=== PATIENT | female | born 1970 | race Two or more races ===

== ENCOUNTER → 2020-07-06 12:35 | Outpatient (BNVA) | payer OTHER, SELFPAY | PROVIDERS: PCP Internal Medicine; Referring Provider Internal Medicine; Visit Provider Nurse Practitioner Gerontology | DX: Z76.89 Persons encountering health services in other specified circumstances (principal) ==

== ENCOUNTER 2020-07-07 08:59 | Outpatient (REF) | payer OTHER, SELFPAY ==
[2020-07-07 10:35] LABS: Estimated Average Glucose 163 mg/dL; Hemoglobin A1c % 7.3 %
[2020-07-07 11:03] LABS: Free T4 (Free Thyroxine) 1.06 ng/dL (0.71-1.85)
== END 2020-07-07 09:00 | disposition home or self-care (01) ==
LOC: HO.10HDL 08:59
PROVIDERS: Visit Provider Nurse Practitioner Gerontology
DX: E11.9 Type 2 diabetes mellitus without complications (principal); E89.0 Postprocedural hypothyroidism
CPT/HCPCS: 83036; 84439; 84443

== ENCOUNTER → 2020-07-25 11:45 | Outpatient (BNVA) | payer OTHER, SELFPAY | PROVIDERS: PCP Internal Medicine; Visit Provider Physician Assistant | DX: Z76.89 Persons encountering health services in other specified circumstances (principal) ==

== ENCOUNTER 2020-08-08 13:30 | Outpatient (REF) | payer OTHER, SELFPAY ==
[2020-08-08 13:51] LABS: COVID-19 Test Negative (Negative)
== END 2020-08-08 13:31 | disposition home or self-care (01) ==
LOC: HO.EMPCOV 13:30
PROVIDERS: Visit Provider Internal Medicine
DX: Z20.828 Contact with and (suspected) exposure to other viral communicable diseases (principal)
CPT/HCPCS: 36415; 87635; C9803

== ENCOUNTER 2020-08-14 08:31 | Outpatient (REF) | payer OTHER, SELFPAY ==
[2020-08-14 10:50] LABS: Free T4 (Free Thyroxine) 1.27 ng/dL (0.71-1.85); Thyroid Stimulating Hormone 1.33 uIU/mL (0.32-4.0)
== END 2020-08-14 08:32 | disposition home or self-care (01) ==
LOC: HO.10HDL 08:31
PROVIDERS: Visit Provider Nurse Practitioner Gerontology
DX: E89.0 Postprocedural hypothyroidism (principal)
CPT/HCPCS: 36415; 84439; 84443

== ENCOUNTER → 2020-08-22 10:17 | Outpatient (BNVA) | payer OTHER, SELFPAY | PROVIDERS: PCP Internal Medicine; Visit Provider Nurse Practitioner Gerontology ==

== ENCOUNTER → 2020-10-20 12:37 | Outpatient (BNVA) | payer OTHER, SELFPAY | PROVIDERS: Visit Provider Nurse Practitioner Gerontology ==

== ENCOUNTER 2020-10-23 11:25 | Outpatient (REF) | payer OTHER, SELFPAY ==
--- NOTE | ~2020-10-23 | MM_ITS ---
EXAMINATION: MM DIAGNOSTIC DIGITAL BREAST TOMOSYNTHESIS, LEFT US DIAGNOSTIC ULTRASOUND BREAST, LEFT CLINICAL INFORMATION: Probable benign nodular asymmetry central outer left breast. The lifetime risk of breast cancer based on the Tyrer-Cuzick Model is 6%. COMPARISON: Mammography: 04/28/2020, 04/27/2020 (BI-RADS 0), 04/20/2019, ultrasound left breast 04/28/2020. TECHNIQUE: Digital breast tomosynthesis is performed in both the craniocaudal and mediolateral oblique views along with computer-aided detection (CAD). Synthesized 2D images are generated from the tomosynthesis. Ultrasound left breast is targeted to the outer quadrant. Grayscale imaging and color Doppler are performed without and with harmonics. FINDINGS: There are scattered areas of fibroglandular density (ACR BI-RADS breast composition Category b). Parenchymal pattern is similar to prior studies. The nodular asymmetry posterior central outer breast on CC view is stable from prior exams. There is no developing density or architectural abnormality. No correlate on MLO view. There are some scattered punctate benign calcifications again seen. Ultrasound left breast demonstrates small cyst 2:00 position 5 cm from nipple measuring approximately 0.3 cm. This is likely more anterior than the finding noted on mammography. There is no solid mass or architectural abnormality or focal duct ectasia in the targeted area. Results are discussed with the patient at time of visit. MM/MM tomosynthesis diagnostic LT IMPRESSION: No significant changes from prior exam. No developing density. ASSESSMENT: BI-RADS 3: Probably Benign RECOMMENDATION: Diagnostic mammography at time of annual bilateral mammography, due in 6 months. This patient's information was entered into a reminder system with a target due date for their next mammogram.
== END 2020-10-23 11:26 | disposition home or self-care (01) ==
LOC: HO.MAMMO 11:25
PROVIDERS: Visit Provider Internal Medicine
DX: N63.21 Unspecified lump in the left breast, upper outer quadrant (principal)
CPT/HCPCS: 76642; 77061; 77065

== ENCOUNTER 2020-12-18 09:38 | Outpatient (REF) | payer OTHER, SELFPAY ==
[2020-12-18 10:49] LABS: Alanine Aminotransferase 27 U/L (0-31); Albumin Level 4.4 g/dL (3.5-5.0); Alkaline Phosphatase 65 U/L (39-117); Anion Gap 14 (12-20); Aspartate Amino Transferase 17 U/L (5-31); Bilirubin Total 0.3 mg/dL (0.0-1.0); Blood Urea Nitrogen 22 mg/dL (9-16); Calcium 9.9 mg/dL (8.4-10.2); Carbon Dioxide 26 mmol/L (22-29); Chloride 102 mmol/L (96-108); Cholesterol 144 mg/dL; Estimated Glomerular Filt Rate > 60; Glucose Fasting 119 mg/dL (60-99); HDL Cholesterol 44 mg/dL; LDL Cholesterol Calculated 56 mg/dl; Potassium 3.9 mmol/L (3.3-5.1); Sodium 138 mmol/L (135-145); Total Protein 7.1 g/dL (6.5-8.0); Triglycerides 224 mg/dL
[2020-12-18 11:12] LABS: Vitamin D 25-OH Total 29.5 ng/mL (>30)
[2020-12-18 14:48] LABS: Creatinine Urine 86.13 mg/dL; Microalbum/Creatinine Ratio Ur 10.4 ug/mg cr
[2020-12-19 18:02] LABS: LDL Cholesterol Direct 75 mg/dL (<100)
== END 2020-12-18 09:39 | disposition home or self-care (01) ==
LOC: HO.10HDL 09:38
PROVIDERS: Absent Provider Internal Medicine; Visit Provider Nurse Practitioner Gerontology
DX: E11.65 Type 2 diabetes mellitus with hyperglycemia (principal); N95.1 Menopausal and female climacteric states
CPT/HCPCS: 36415; 80053; 80061; 82043; 82306; 83721

== ENCOUNTER → 2020-12-27 13:43 | Outpatient (BNVA) | payer OTHER, SELFPAY | PROVIDERS: Visit Provider Advanced Practice Midwife ==

== ENCOUNTER → 2021-01-17 14:05 | Outpatient (BNVA) | payer OTHER, SELFPAY | PROVIDERS: Referring Provider Internal Medicine; Visit Provider Physician Assistant ==

== ENCOUNTER → 2021-01-26 13:30 | Outpatient (BNVA) | payer OTHER, SELFPAY | PROVIDERS: Visit Provider Nurse Practitioner Gerontology | DX: E11.9 Type 2 diabetes mellitus without complications (principal); E78.5 Hyperlipidemia, unspecified; E89.0 Postprocedural hypothyroidism; I10 Essential (primary) hypertension | CPT/HCPCS: 82947 ==

== ENCOUNTER 2021-03-12 07:14 | Day surgery (SDC) | payer OTHER, SELFPAY ==
[2021-03-05 12:45] VITALS: BMI 29.6
--- NOTE | 2021-03-09 08:23 | HO.ANESPROP2 ---
Documented by User: Shirin Kelsey 03/09/21 08:24 HPI - Anesthesia Eval Consult details Narrative: 50yo F for Upper Endoscopy and Colonoscopy PMFSH Active Problems Active Problems: All Active Problems (Updated 01/26/21 @ 14:26 by ASTRID Bonilla-C) DM2 (diabetes mellitus, type 2) (Acute) Loose stools (Acute) Encounter for screening colonoscopy (Acute) Acid reflux (Acute) Hot flashes due to menopause (Acute) Type 2 diabetes mellitus with hyperglycemia (Acute) Gastroparesis (Acute) Essential hypertension (Acute) Hyperlipidemia LDL goal <100 (Acute) Postablative hypothyroidism (Acute) Plantar wart, left foot (Acute) Past Medical History Medical History Carpal tunnel syndrome DJD (degenerative joint disease) DM2 (diabetes mellitus, type 2) Epicondylitis Essential hypertension Gastroparesis Gastroparesis Hot flashes due to menopause Hyperlipidemia LDL goal <100 Peripheral edema Plantar wart, left foot Postablative hypothyroidism Stomach ulcer Type 2 diabetes mellitus with hyperglycemia Family History Family History Father Diabetes CVD (cardiovascular disease) Stomach ulcer Mother Diabetes Colon polyps Family/Other Stomach cancer Surgical History Surgical History Hx of section Hx of foot surgery Hx of mammogram Hx of tubal ligation Social History Social History Household Members: Spouse and Children Alcohol intake: current Alcohol intake frequency: holidays/special occasions only Patient Tobacco Use Status: Former Tobacco user Tobacco use type: Cigarette Advance Directives Information Provided: No Current occupational status: employed 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 Gender identity: female Meds Allergies Allergy/AdvReac Type Severity Reaction Status Date / Time oxycodone [From PERCOCET] AdvReac Unknown NAUSEA & Verified 01/26/21 14:06 VOMITING Home Medications Medication Instructions Recorded Confirmed Last Taken Type cholecalciferol (vitamin D3) 125 125 mcg PO DAILY 01/17/21 03/05/21 Unknown History mcg (5,000 unit) capsule Exam Exam Date and Time: March 09, 2021 0823 Height,Weight and Vital Signs: Height 5 ft 2 in Weight 73.482 kg Pertinent Lab Results Pertinent Lab Results: Laboratory Tests 12/18/20 09:42 Sodium 138 Potassium 3.9 Chloride 102 Carbon Dioxide 26 BUN 22 H Creatinine 0.79 Assessment and Plan Assessment Anesthesia Assessment: Chart Reviewed Documented by User: Flakita Abad MD 03/12/21 08:00 PMFSH Past Medical History Medical History Carpal tunnel syndrome DJD (degenerative joint disease) DM2 (diabetes mellitus, type 2) Epicondylitis Essential hypertension Gastroparesis Gastroparesis Hot flashes due to menopause Hyperlipidemia LDL goal <100 Peripheral edema Plantar wart, left foot Postablative hypothyroidism Stomach ulcer Type 2 diabetes mellitus with hyperglycemia Family History Family History Father Diabetes CVD (cardiovascular disease) Stomach ulcer Mother Diabetes Colon polyps Family/Other Stomach cancer Surgical History Surgical History Hx of section Hx of foot surgery Hx of mammogram Hx of tubal ligation History of Problems with Anesthesia: No Social History Social History Household Members: Spouse and Children Alcohol intake: current Alcohol intake frequency: holidays/special occasions only Patient Tobacco Use Status: Former Tobacco user Tobacco use type: Cigarette Advance Directives Information Provided: No Current occupational status: employed 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 Gender identity: female Meds Allergies Allergy/AdvReac Type Severity Reaction Status Date / Time oxycodone [From PERCOCET] AdvReac Unknown NAUSEA & Verified 01/26/21 14:06 VOMITING Home Medications Medication Instructions Recorded Confirmed Last Taken Type cholecalciferol (vitamin D3) 125 125 mcg PO DAILY 01/17/21 03/05/21 Unknown History mcg (5,000 unit) capsule Exam Airway Mallampati Class: II TM Dist: >3cm Neck ROM: Full Partial: Upper Loose/Missing/Broken Teeth: Yes and Upper Heart: RRR Lungs: CTA Assessment and Plan Assessment Anesthesia Assessment: Anesthesia Plan Discussed and Chart Reviewed Final Anesthetic Review History of Problems with Anesthesia: No NPO: Yes ASA Class: II Final Preanesthetic Review: Meds/Allgs Chart Reviewed, Consent Obtained/Reviewed and Anes Risks/Benef Reviewed Patient Risk: Low Procedure Risk: Intermediate Anesthetic Plan Anesthetic Plan: MAC: Disposition: Standard PACU
[2021-03-12 07:34] VITALS: BP 118/80; PULSE 70; RESP 16; TEMP 35.8; O2SAT 96
[2021-03-12 07:39] LABS: Glucose, Whole Blood 187 mg/dL (60-115)
--- NOTE | 2021-03-12 07:44 | MHC.SHP ---
Pre-Procedural Eval Section A Date of Service: 03/12/21 Section B Chief Complaint: Screening, Acid reflux Present Medications: see Short Stay Collaborative assessment Medical History: Significant History (Carpal tunnel syndrome DJD (degenerative joint disease) Epicondylitis Essential hypertension Gastroparesis Gastroparesis Hot flashes due to menopause Hyperlipidemia LDL goal <100 Peripheral edema Plantar wart, left foot Postablative hypothyroidism Stomach ulcer Type 2 diabetes mellitus with hypergly) History of Previous Operations: Relevant previous surgery/procedure and date(s) (Hx of section Hx of foot surgery Hx of mammogram Hx of tubal ligation) Allergies: Allergies Allergy/AdvReac Type Severity Reaction Status Date / Time oxycodone [From PERCOCET] AdvReac Unknown NAUSEA & Verified 01/26/21 14:06 VOMITING Review of Systems Sugical H&P ROS: Negative: Constitution, Cardiovascular and Respiratory and Yes, Specify: Gastrointestinal (anal fissure, loose stools) Exam Surgical H&P Exam: Normal: Heart, Normal: Extremities and Normal: Abdomen Plan Diagnosis/Plan: Unchanged I have reviewed the history and physical and performed a pertinent physical examination on my patient. No changes have occurred unless specified.
[2021-03-12] MEDS: Lactated Ringers 1,000 ML 100 ML IVCONT (07:47)
--- NOTE | 2021-03-12 08:38 | PM.OP ---
Brief Operative Note Date of Service: 03/12/21 Pre-op diagnosis: Colon cancer screening GERD Post-op diagnosis: other (GERD, gastritis, diverticulosis) Procedure: FLEXIBLE TRANSORAL UPPER GASTROINTESTINAL ENDOSCOPY WITH BIOPSIES AND COLONOSCOPY TILL CECUM WITH BIOPSIES UPPER ENDOSCOPY Consent: Indications for the procedure and potential complications of bleeding, perforation, reaction to medications and missed diagnosis were discussed with the patient and informed consent was obtained. Instrument: Olympus GIF H 190 mid size upper endoscope Monitoring: Vital signs and clinical assessment, continuous EKG monitoring, Pulse oximetry, Carbon Dioxide monitoring and blood pressure monitoring were done throughout the procedure. Procedure: The patient was placed in the left lateral decubitis position and pre-procedure medications were administered and a bite block was placed. The endoscope was inserted into the mouth and advanced under direct vision to the third part of duodenum. A careful inspection was made as the upper endoscope was withdrawn including a retroflexed examination of the proximal stomach; Findings and interventions are described below. Findings: Larynx: Normal Esophagus: GE junction at 35 cms. No esophagitis or Rodríguez's. Stomach: Mild gastric erythema. Biopsies were obtained. Grade 2 flap valve on retroflexed examination of the cardia. Duodenum: Normal bulb and descending duodenum Intervention: Biopsies as noted above COLONOSCOPY PROCEDURE NOTE Consent: Indications for the procedure and potential complications of bleeding, perforation, reaction to medications and missed diagnosis were discussed with the patient and informed consent was obtained. Instrument: Olympus PCF H 190 L variable stiffness pediatric colonoscope Monitoring: Vital signs and clinical assessment, intermittent blood pressure monitoring, continuous EKG monitoring, Pulse oximetry and Carbon Dioxide monitoring were done throughout the procedure. Colon withdrawl time was 18 minutes. Procedure: The patient was placed in the left lateral decubitis position and pre-procedure medications were administered. After a digital rectal examination of the ano-rectum, the video colonoscope was inserted into the rectum and advanced through the colon to the cecum. The colonoscope was slowly withdrawn in a retrograde panoramic fashion and the colon mucosa was carefully examined including a retroflexed view of the rectum. Findings and interventions are described below. Procedure Difficulty: : Without difficulty Findings: Terminal Ileum: Not evaluated Cecum: Normal Ascending Colon: Normal Transverse Colon: Normal Descending Colon: Normal Sigmoid Colon: Moderate diverticulosis Rectum: Normal Ano-rectum: Moderate internal hemorrhoids Colon preparation: Good Impression and Post Procedure Diagnosis: Endoscopy Findings: ESOPHAGUS: Normal STOMACH: Mild gastritis Colonoscopy Findings: No polyps were detected. Random biopsies were obtained from colon to check for microscopic colitis Moderate diverticulosis seen in the sigmoid colon Plan: Await pathology results Patient to schedule a FU appointment in the GI Clinic with TORIE Tapia. Repeat Colonoscopy in 10 years if biopsies are normal Above findings were reviewed with the patient and GERD and diverticulosis handouts were given in the discharge area Surgeon: Shira Saavedra MD Anesthesia: MAC (Melanie Luis CRNA) Was an Electronic News Gathering Camera Person used for this Procedure?: Yes Electronic News Gathering Camera Person: Aden Dangelo Estimated blood loss (mL): 0 Pathology: other (A- GASTRIC ANTRUM BXS R/O H. PYLORI B. RANDOM COLON BX'S R/O MICROSCOPIC COLITIS) Condition: stable Disposition: PACU
[2021-03-12 09:23] VITALS: BP 97/61; PULSE 59; RESP 14; TEMP 36.1; O2SAT 99
[2021-03-12 09:33] VITALS: PULSE 66; RESP 18; O2SAT 97
[2021-03-12 09:37] VITALS: BP 128/91; PULSE 69; RESP 18; O2SAT 98
--- NOTE | 2021-03-15 18:58 | W.PM.OPN ---
Operative Note Operative Note Date of Service: 03/12/21 Narrative: Pre-op diagnosis:?Colon cancer screening GERD Post-op diagnosis:?other (GERD, gastritis, diverticulosis) Procedure:? FLEXIBLE TRANSORAL UPPER GASTROINTESTINAL ENDOSCOPY WITH BIOPSIES ?AND COLONOSCOPY TILL CECUM WITH BIOPSIES UPPER ENDOSCOPY Consent:?Indications for the procedure and potential complications of bleeding, perforation, reaction to medications and missed diagnosis were discussed with the patient and informed consent was obtained. Instrument:?Olympus GIF H 190 mid size upper endoscope Monitoring: Vital signs and clinical assessment, continuous EKG monitoring, Pulse oximetry, Carbon Dioxide monitoring and blood pressure monitoring were done throughout the procedure. Procedure:?The patient was placed in the left lateral decubitis position and pre-procedure medications were administered and a bite block was placed. The endoscope was inserted into the mouth and advanced under direct vision to the third part of duodenum. A careful inspection was made as the upper endoscope was withdrawn including a retroflexed examination of the proximal stomach; Findings and interventions are described below. Findings: Larynx:? Normal Esophagus:?GE junction at 35 cms.? No esophagitis or Rodríguez's. Stomach:?Mild gastric erythema. Biopsies were obtained. Grade 2 flap valve on retroflexed examination of the cardia. Duodenum:?Normal bulb and descending duodenum Intervention:?Biopsies as noted above COLONOSCOPY PROCEDURE NOTE Consent:?Indications for the procedure and potential complications of bleeding, perforation, reaction to medications and missed diagnosis were discussed with the patient and informed consent was obtained. Instrument:?Olympus PCF H 190 L variable stiffness pediatric colonoscope Monitoring:?Vital signs and clinical assessment, intermittent blood pressure monitoring, continuous EKG monitoring, Pulse oximetry and Carbon Dioxide monitoring were done throughout the procedure. Colon withdrawl time was 18 minutes. Procedure:?The patient was placed in the left lateral decubitis position and pre-procedure medications were administered. After a digital rectal examination of the ano-rectum, the video colonoscope was inserted into the rectum and advanced through the colon to the cecum. The colonoscope was slowly withdrawn in a retrograde panoramic fashion and the colon mucosa was carefully examined including a retroflexed view of the rectum. Findings and interventions are described below. Procedure Difficulty:?: Without difficulty Findings: Terminal Ileum: Not evaluated Cecum:? Normal Ascending Colon:??Normal Transverse Colon:??Normal Descending Colon:? Normal Sigmoid Colon:??Moderate diverticulosis Rectum:??Normal Ano-rectum:??Moderate internal hemorrhoids Colon preparation:? Good? Impression and Post Procedure Diagnosis: Endoscopy Findings: ESOPHAGUS: Normal STOMACH: Mild gastritis Colonoscopy Findings: No polyps were detected. Random biopsies were obtained from colon to check for microscopic colitis Moderate diverticulosis seen in the sigmoid colon Plan: Await pathology results Patient to schedule a FU appointment in the GI Clinic with TORIE Tapia. Repeat Colonoscopy in 10? years if biopsies are normal Above findings were reviewed with the patient and GERD and diverticulosis handouts were given in the discharge area Surgeon:?Shira Saavedra MD Anesthesia:?MAC (Melanie Luis CRNA) Was an Spinning Bath Patroller used for this Procedure?:?Yes Spinning Bath Patroller:?Aden Dangelo Estimated blood loss (mL):?0 Pathology:?other (A- GASTRIC ANTRUM BXS ? R/O H. PYLORI? B. RANDOM COLON BX'S R/O MICROSCOPIC COLITIS) Condition:?stable Disposition:?PACU
== END 2021-03-12 10:30 | disposition home or self-care (01) ==
PROVIDERS: PCP Internal Medicine; Visit Provider Internal Medicine Gastroenterology
PROC: (CPT 45380; principal; 2021-03-12 08:20)
DX: Z12.11 Encounter for screening for malignant neoplasm of colon (principal); K57.30 Diverticulosis of large intestine without perforation or abscess without bleeding; K21.9 Gastro-esophageal reflux disease without esophagitis; K29.50 Unspecified chronic gastritis without bleeding; E11.65 Type 2 diabetes mellitus with hyperglycemia; I10 Essential (primary) hypertension; E89.0 Postprocedural hypothyroidism; Z79.84 Long term (current) use of oral hypoglycemic drugs; Z79.899 Other long term (current) drug therapy; Z88.8 Allergy status to other drugs, medicaments and biological substances; Z87.891 Personal history of nicotine dependence
CPT/HCPCS: 45380; 43239; 82947; 88305; 88342; J2250

== ENCOUNTER 2021-04-24 13:46 | Outpatient (REF) | payer OTHER, SELFPAY ==
--- NOTE | ~2021-04-24 | MM_ITS ---
EXAMINATION: MM DIAGNOSTIC DIGITAL BREAST TOMOSYNTHESIS, BILATERAL US BREAST, LEFT CLINICAL INFORMATION: Left breast density follow up, annual right breast study. The lifetime risk of breast cancer based on the Tyrer-Cuzick Model is 7.7%. COMPARISON: Mammography: 10/23/2020 and studies dating back to 02/25/2011. TECHNIQUE: Digital breast tomosynthesis is performed in both the craniocaudal and mediolateral oblique views along with computer-aided detection (CAD). Synthesized 2-D images are generated from the tomosynthesis. Additional right exaggerated craniocaudal view performed. Targeted left breast ultrasound. FINDINGS: The breasts are heterogeneously dense, which may obscure small masses (ACR BI-RADS breast composition Category c). There is multiplicity and bilaterality of stable calcifications. There is a stable parenchymal pattern seen within the right breast. About the upper outer aspect of the left breast, 7 cm from the nipple, there is again noted to be a partially circumscribed density which has increased in size since previous study now measuring 1.1 x 0.7 x 0.7 cm in size. ULTRASOUND: Targeted left breast ultrasound demonstrated a cyst at the 2 o'clock position, 3 cm from the nipple, which is minimally complex. It measures approximately 8 x 6 x 3 mm in size and has smooth backwall and increased through sound transmission. No internal vascularity is present. The lesion is wider than it is tall. The ultrasound findings correspond in size to the mammographic finding. Results are provided to the patient at time of visit by the technologist. MM/MM tomosynthesis diagnostic BI IMPRESSION: Left breast density corresponds to a cyst which is minimally complex. Recommend 1 year follow up diagnostic mammography to ensure stability. ASSESSMENT: BI-RADS 3: Probably Benign. RECOMMENDATION: Diagnostic mammography at time of next annual exam, due in 12 months. This patient's information was entered into a reminder system with a target due date for their next mammogram.
--- NOTE | ~2021-04-24 | US_ITS ---
EXAMINATION: US DIAGNOSTIC ULTRASOUND BREAST, LEFT CLINICAL INFORMATION: Density upper outer aspect. COMPARISON: Mammography of same day and studies dating back to February 25, 2011. TECHNIQUE: Ultrasound of the breast is performed with real-time west scale imaging and color Doppler. FINDINGS: Targeted left breast ultrasound demonstrated a cyst at the 2:00 position 3 cm from the nipple which is minimally complex. It measures approximately 8 x 6 x 3 mm in size and has smooth back wall and increased through sound transmission. No internal vascularity is present. The lesion is wider than it is tall. The ultrasound findings correspond in size to the mammographic finding. Results are provided to the patient at time of visit by the technologist. US/US breast LT limited IMPRESSION: Left breast density corresponds to a cyst which is minimally complex. Recommend 1 year follow-up diagnostic mammography to ensure stability. ASSESSMENT: BI-RADS 3: Probably Benign RECOMMENDATION: Diagnostic mammography at time of next annual exam, due in 12 months.
== END 2021-04-24 13:47 | disposition home or self-care (01) ==
LOC: HO.MAMMO 13:46
PROVIDERS: PCP Internal Medicine; Visit Provider Internal Medicine
DX: N64.89 Other specified disorders of breast (principal)
CPT/HCPCS: 76642; 77062; 77066

== ENCOUNTER → 2021-09-05 13:19 | Outpatient (BNVA) | payer OTHER, SELFPAY | PROVIDERS: PCP Internal Medicine; Visit Provider Nurse Practitioner Gerontology | DX: E11.9 Type 2 diabetes mellitus without complications (principal); E78.5 Hyperlipidemia, unspecified; E89.0 Postprocedural hypothyroidism; I10 Essential (primary) hypertension | CPT/HCPCS: 82947; 83036 ==

== ENCOUNTER → 2021-09-18 08:31 | Outpatient (BNVA) | payer OTHER, SELFPAY | PROVIDERS: PCP Internal Medicine; Visit Provider Physician Assistant | DX: M77.11 Lateral epicondylitis, right elbow (principal) | CPT/HCPCS: 20551; J1020 ==

== ENCOUNTER 2021-10-23 08:50 | Outpatient (REF) | payer OTHER, SELFPAY ==
--- NOTE | ~2021-10-23 | XR_ITS ---
EXAMINATION: XR WRIST, RIGHT CLINICAL INFORMATION: Pain COMPARISON: None TECHNIQUE: PA, lateral, and oblique views of the right wrist. FINDINGS: The bones and soft tissues are normal. No fracture. Alignment is anatomic with normal joint spaces. No erosions or abnormal soft tissue calcifications. XR/XR wrist RT min 3V IMPRESSION: Normal right wrist.
== END 2021-10-23 08:51 | disposition home or self-care (01) ==
LOC: HO.HOSX 08:50
PROVIDERS: Visit Provider Orthopaedic Surgery
DX: M65.4 Radial styloid tenosynovitis [de Quervain] (principal); R20.0 Anesthesia of skin; R20.2 Paresthesia of skin; F17.210 Nicotine dependence, cigarettes, uncomplicated
CPT/HCPCS: 20550; 73110; J1100

== ENCOUNTER → 2021-12-04 08:11 | Outpatient (BNVA) | payer OTHER, SELFPAY | PROVIDERS: PCP Internal Medicine; Visit Provider Nurse Practitioner Gerontology | DX: E11.9 Type 2 diabetes mellitus without complications (principal); E78.5 Hyperlipidemia, unspecified; E89.0 Postprocedural hypothyroidism; I10 Essential (primary) hypertension | CPT/HCPCS: 82947; 83036 ==

== ENCOUNTER 2022-03-11 14:57 | Outpatient (REF) | payer OTHER, SELFPAY ==
[2022-03-14 03:36] LABS: HPV mRNA E6/E7 rflx Not Detected (Not Detected)
== END 2022-03-11 14:58 | disposition home or self-care (01) ==
LOC: HO.LAB 14:57
PROVIDERS: Visit Provider Advanced Practice Midwife
DX: Z01.419 Encounter for gynecological examination (general) (routine) without abnormal findings (principal); Z11.51 Encounter for screening for human papillomavirus (HPV)
CPT/HCPCS: 87624; 88142

== ENCOUNTER 2022-04-26 08:17 | Outpatient (REF) | payer OTHER, SELFPAY ==
--- NOTE | ~2022-04-26 | MM_ITS ---
EXAMINATION: MM DIAGNOSTIC DIGITAL BREAST TOMOSYNTHESIS, BILATERAL US DIAGNOSTIC ULTRASOUND BREAST, LEFT CLINICAL INFORMATION: Due for yearly. Also follow-up probable benign nodule/cyst 1:00 left breast. The lifetime risk of breast cancer based on the Tyrer-Cuzick Model is 7%. COMPARISON: Mammography: 04/24/2021, 10/23/2020, 04/28/2020, 04/27/2020 (BI-RADS 0) left breast ultrasound 04/24/2021, 10/23/2020, 04/28/2020. TECHNIQUE: Digital breast tomosynthesis is performed in both the craniocaudal and mediolateral oblique views along with computer-aided detection (CAD). Synthesized 2D images are generated from the tomosynthesis. Additional spot left CC and spot left MLO views are obtained. Ultrasound left breast is targeted to the upper breast. Patient is imaged supine and semiupright with left arm both up and down. Grayscale imaging and color Doppler are performed without and with harmonics. FINDINGS: There are scattered areas of fibroglandular density (ACR BI-RADS breast composition Category b). Breast tissue composition borders on heterogeneously dense. Parenchymal pattern is similar to prior studies and there is no developing density or interval mass or architectural abnormality. The nodule central inner 1:00 left breast is stable. Margins are smooth, partly obscured. There are some scattered non-grouped calcifications central and upper left breast as before. The axilla and skin contours are unremarkable. Ultrasound left breast demonstrates incidental 0.8 cm simple cyst 6.5 cm from nipple central 1:00 position corresponding to the nodule for follow-up. The cyst is anechoic and margins are circumscribed. There is increased through-transmission of sound. No associated color flow. There are 2 other tiny cysts in the more superficial mid upper left breast, similar to ultrasound 04/28/2020. There is no solid mass or architectural abnormality or focal duct ectasia. No skin thickening or edema tracking in soft tissue planes. This conclude surveillance. Results are discussed with the patient at time of visit. MM/MM tomosynthesis diagnostic BI IMPRESSION: -No mammographic evidence of malignancy. -Simple cyst central 1:00 left breast, corresponding to the nodule for follow-up. ASSESSMENT: BI-RADS 2: Benign RECOMMENDATION: Routine annual mammography screening. This patient's information was entered into a reminder system with a target due date for their next mammogram.
== END 2022-04-26 08:18 | disposition home or self-care (01) ==
LOC: HO.MAMMO 08:17
PROVIDERS: PCP Internal Medicine; Visit Provider Internal Medicine
DX: R92.2 Inconclusive mammogram (principal)
CPT/HCPCS: 76642; 77062; 77066

== ENCOUNTER 2022-05-07 14:19 | Outpatient (REF) | payer OTHER, SELFPAY ==
--- NOTE | ~2022-05-07 | XR_ITS ---
EXAMINATION: XR SHOULDER, RIGHT CLINICAL INFORMATION: Right shoulder strain, unspecified COMPARISON: None TECHNIQUE: AP external rotation, Grashey, scapular Y, and axillary views of the right shoulder. FINDINGS: No evidence for acute fracture or dislocation. Small spurring of the right greater tuberosity. No abnormal soft tissue calcifications. Small spurring of the lateral acromion. There is slight glenohumeral joint space narrowing. XR/XR shoulder RT min 2V IMPRESSION: No acute process. Degenerative changes as noted.
== END 2022-05-07 14:20 | disposition home or self-care (01) ==
LOC: HO.XRAY 14:19
PROVIDERS: PCP Internal Medicine; Visit Provider Internal Medicine
DX: S46.911A Strain of unspecified muscle, fascia and tendon at shoulder and upper arm level, right arm, initial encounter (principal)
CPT/HCPCS: 73030

== ENCOUNTER 2022-11-19 08:31 | Outpatient (AMB) | payer OTHER, SELFPAY ==
[2022-11-19 08:33] VITALS: BP 100/64; PULSE 73; O2SAT 99; BMI 27.6
--- NOTE | 2022-11-19 08:33 | MHC.PC.OV ---
Vital Signs 11/19/22 08:33 Height 5 ft 2 in Weight 151 lb BMI 27.6 BP 100/64 Blood Pressure Location Lt brachial Position Sitting Pulse 73 Pulse Source Pulse Oximeter Pulse Oximetry (%) 99 Oxygen Delivery Method Room Air Intake Visit Reasons: Medication concerns pt has not been seen Intake Note: Pt is here today Rt shoulder pain, pt was seen at our [place] and finds no relief Allergies oxycodone [From PERCOCET] Adverse Reaction (Unknown, Verified 02/12/23 15:23) NAUSEA & VOMITING Medication List - Last Reconciled 11/19/22 by Jonelle Prakash MD atorvastatin 20 mg PO DAILY blood-glucose meter (FreeStyle Lite Meter kit) As directed chlorthalidone 25 mg PO QAM empagliflozin (Jardiance) 25 mg PO QAM fenofibrate micronized 134 mg PO DAILY flash glucose scanning reader (Phonitive - TouchalizeStyle Chloé 2 [place]) As directed flash glucose sensor (FreeStyle Chloé 2 Sensor kit) As directed every 2 weeks levothyroxine 112 mcg PO QAM lisinopril 2.5 mg PO DAILY meloxicam 15 mg PO DAILY omeprazole 20 mg PO BID sitagliptin phosphate (Januvia) 100 mg PO DAILY venlafaxine ER 37.5 mg PO DAILY Tobacco use date assessed: 11/19/22 HPI Medication concerns pt has not been seen HPI Details 52-year-old lady with diabetes mellitus, dyslipidemia, hypertension postablative hypothyroidism, here today for her follow-up. She was being seen at [facility] but has not had a follow-up with regards her diabetes mellitus or hypothyroidism since her endocrine provider left several months ago. She has currently been taking Januvia and Jardiance for her diabetes mellitus and has been taking levothyroxine 112 mcg daily in addition to atorvastatin and fenofibrate for her for her elevated cholesterol. She has been feeling well on these medications. Has been trying to adhere to recommended diet but admits to not getting any regular exercise. She is also here today complaining of pain in her right shoulder, which has been present for at least 8 months now, and thinks that this all started when she tried helping her mom lift something. She has been seen at urgent care and by Rheumatology as well, has tried taking Tylenol arthritis, ibuprofen do, applied ice and heat to affected joint, and has tried doing his shoulder stretch exercises which has not afforded any improvement and has only caused her pain to become more speak. Has pain when moving her arm out words and caring anything heavy with her right hand, unable to lie on right side due to pain. [facility] Medical History Carpal tunnel syndrome Controlled diabetes mellitus type II without complication De Quervain's tenosynovitis, left DJD (degenerative joint disease) Epicondylitis Essential hypertension Gastritis Gastroparesis Gastroparesis Hot flashes due to menopause Hyperlipidemia LDL goal <100 Lateral epicondylitis, right elbow Plantar wart, left foot Postablative hypothyroidism Superficial burn of right thigh Vitamin D deficiency Surgical History Hx of section Hx of colonoscopy Hx of endoscopy Hx of foot surgery Hx of mammogram Hx of tubal ligation Family History Father Diabetes CVD (cardiovascular disease) Stomach ulcer Mother Diabetes Colon polyps Dementia Family/Other Stomach cancer Social History Household Members: Spouse and Children Housing: House Alcohol intake: current Alcohol intake frequency: holidays/special occasions only Patient Tobacco Use Status: Current someday Tobacco user Tobacco use type: Cigarette e-Cigarette/Vaping Use: Currently Using Current occupational status: employed 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 How often do you have a drink containing alcohol?: Monthly or less 2. How many drinks containing alcohol do you have on a typical day when you are drinking?: 1 or 2 3. How often do you have six or more drinks on one occasion?: Never Total Score: 1 FIDELINA-7 AMB Questionnaire FIDELINA-7 Date FIDELINA - 7 assessed: 07/09/21 Source: Developed by Drs. Vladimir Carlson, Kady Pardo, Deven Victoria and colleagues, with an educational skye from [employer]. Review of Systems Const Denies fatigue, Denies headache(s) and Denies malaise Eyes Details: Currently sees Dr. Chowdary ENT Denies headache(s), Denies nasal congestion and Denies sore throat Card Denies chest pain, Denies irregular heart rhythm, Denies palpitations and Denies dyspnea Resp Denies cough and Denies dyspnea GI Denies abdominal pain, Denies change in bowel habits and Denies heartburn Reports no additional complaints Musc Details: Decreased range of motion right shoulder, with pain in joint Skin/Breast Denies breast skin changes, Denies breast pain, Denies breast mass, Denies lesions and Denies rash Neuro Denies headache(s) and Denies radicular pain Endo Denies fatigue, Denies polydipsia, Denies polyuria and Denies palpitations Shimon/Lymph Denies easy bruising Aller/Immun Reports no additional complaints Physical exam (Primary Care) Vital Signs: Last Vital Signs Pulse 73 11/19/22 08:33 BP 100/64 11/19/22 08:33 Pulse Ox 99 11/19/22 08:33 Oxygen Delivery Method Room Air 11/19/22 08:33 BMI result Body Mass Index 27.6 Tobacco/Smoking Status: Tobacco use Status Tobacco use date assessed 11/19/22 11/19/22 08:39 Patient Tobacco Use Status Current someday Tobacco 11/19/22 08:39 Tobacco use type Cigarette 11/19/22 08:39 e-Cigarette/Vaping Use Currently Using 11/19/22 08:39 Thrive Assessment: Date of Thrive Assessment Date Thrive assessed 07/09/21 11/19/22 08:39 Const General: cooperative, comfortable and no acute distress Orientation/consciousness: patient oriented x3 Limitations: no limitations [facility] Mouth: Normal oral and palatal mucosa present, oropharynx normal and moist mucous membranes Eyes Pupils: Equal, round and reactive pupils present Neck Neck: Yes full ROM, Yes no lymphadenopathy and Yes supple Chest Chest palpation & inspection: normal inspection of the chest Breast/axilla inspection: normal inspection of the breasts Breast/axilla palpation: normal palpation of the breasts Resp Effort & Inspection: normal respiratory effort and able to speak in complete sentences Auscultation: clear to auscultation bilaterally Cardio Rate: regular rate Rhythm: regular rhythm Heart sounds: S1 normal heart sound present and S2 normal heart sound present GI Inspection: Yes normal to inspection Palpation (GI): Soft to palpation, nontender and no masses Auscultation: normal bowel sounds General: Yes no CVA tenderness and Yes deferred (Sees [facility] [place] appointment scheduled) Back/Spine/Pelvis Back: no CVA tenderness and No back tenderness Skin General skin exam: no rashes or lesions noted Neuro General: patient oriented x3, gait normal, tone normal, Normal light touch and pain sensation and no focal motor deficits Cranial nerves: Yes Equal, round and reactive pupils present Cognition (Neuro): normal cognition Gait exam (Neuro): Normal gait present Extrem Other: Decreased range of motion of right shoulder joint pain and stiffness Psych Appearance: grossly normal and well kempt Mental Status: mental status grossly normal Speech and movement: Normal speech and movement present Affect: normal affect Attitude: cooperative Thought process: Normal thought process present Thought content: Normal thought content present Assessment and Plan Assessment & Plan (1) DM2 (diabetes mellitus, type 2): Code(s): E11.9 - Type 2 diabetes mellitus without complications Qualifiers: Diabetes mellitus complication status: without complication Diabetes mellitus detention insulin use: without terminal clerk use Qualified Code(s): E11.9 - Type 2 diabetes mellitus without complications Plan: Continued on via and Jardiance at the same dose, sees Dr. Chowdary for her routine diabetes retinopathy screening and eye exam labs ordered to check for hemoglobin A1c, comprehensive metabolic panel, direct LDL cholesterol, lipid panel urine for microalbumin screening and D level (2) Essential hypertension: Code(s): I10 - Essential (primary) hypertension Plan: Blood pressure at goal of less than 130/80. Continue with current medication. Reinforced importance of following a low sodium diet, getting regular exercise, and lowering stress levels. (3) Hyperlipidemia LDL goal <100: Code(s): E78.5 - Hyperlipidemia, unspecified Plan: Continue with atorvastatin and fenofibrate, fasting labs ordered to check lipids (4) Postablative hypothyroidism: Code(s): E89.0 - Postprocedural hypothyroidism Plan: Will check TSH and free T4, continued on levothyroxine 112 mcg daily in a.m. an hour before breakfast (5) Right shoulder strain: Code(s): S46.911A - Strain of unspecified muscle, fascia and tendon at shoulder and upper arm level, right arm, initial encounter Plan: Has tried conservative measures, will order MRI of right shoulder joint, and referred to orthopedics for further evaluation and management Orders: Orders Comprehensive [place]. Panel Fast 11/26/22 E11.9 - Type 2 diabetes mellitus without complications, I10 - Essential (primary) hypertension, E78.5 - Hyperlipidemia, unspecified, E89.0 - Postprocedural hypothyroidism Hemoglobin A1c 11/26/22 E11.9 - Type 2 diabetes mellitus without complications, I10 - Essential (primary) hypertension, E78.5 - Hyperlipidemia, unspecified, E89.0 - Postprocedural hypothyroidism LDL Cholesterol Direct 11/26/22 E11.9 - Type 2 diabetes mellitus without complications, I10 - Essential (primary) hypertension, E78.5 - Hyperlipidemia, unspecified, E89.0 - Postprocedural hypothyroidism Lipid Panel 11/26/22 E11.9 - Type 2 diabetes mellitus without complications, I10 - Essential (primary) hypertension, E78.5 - Hyperlipidemia, unspecified, E89.0 - Postprocedural hypothyroidism Free T4 (Free Thyroxine) 11/26/22 E03.9 - Hypothyroidism, unspecified, E11.9 - Type 2 diabetes mellitus without complications, I10 - Essential (primary) hypertension, E78.5 - Hyperlipidemia, unspecified, E89.0 - Postprocedural hypothyroidism Thyroid Stimulating Hormone 11/26/22 E11.9 - Type 2 diabetes mellitus without complications, I10 - Essential (primary) hypertension, E78.5 - Hyperlipidemia, unspecified, E89.0 - Postprocedural hypothyroidism Vitamin D 25-OH Total 11/26/22 E11.9 - Type 2 diabetes mellitus without complications, I10 - Essential (primary) hypertension, E78.5 - Hyperlipidemia, unspecified, E89.0 - Postprocedural hypothyroidism Microalbumin, Random (w Creat) 11/26/22 E11.9 - Type 2 diabetes mellitus without complications, I10 - Essential (primary) hypertension, E78.5 - Hyperlipidemia, unspecified, E89.0 - Postprocedural hypothyroidism MR shoulder RT wo con 11/19/22 S46.911A - Strain of unspecified muscle, fascia and tendon at shoulder and upper arm level, right arm, initial encounter Referrals Orthopedics Referral S46.911A - Strain of unspecified muscle, fascia and tendon at shoulder and upper arm level, right arm, initial encounter Medications: Changed From flash glucose scanning reader As directed 1 ea 0RF E11.65 - Type 2 diabetes mellitus with hyperglycemia To flash glucose scanning reader (FreeStyle Chloé 2 [place]) As directed 1 ea 5RF E11.65 - Type 2 diabetes mellitus with hyperglycemia From flash glucose sensor As directed every 2 weeks 2 ea 11RF E11.65 - Type 2 diabetes mellitus with hyperglycemia To flash glucose sensor (FreeStyle Chloé 2 Sensor kit) As directed every 2 weeks 2 ea 5RF E11.65 - Type 2 diabetes mellitus with hyperglycemia Refilled omeprazole Take 1 capsule twice a day 30 minutes before meals 20 mg PO BID 180 caps 1RF K25.9 - Gastric ulcer, unspecified as acute or chronic, without hemorrhage or perforation Coding Level of Care Code Est Pt Level 4 (80442) Diagnoses DM2 (diabetes mellitus, type 2) E11.9 Diabetes mellitus complication status: without complication Diabetes mellitus detention insulin use: without terminal clerk use Essential hypertension I10 Hyperlipidemia LDL goal <100 E78.5 Postablative hypothyroidism E89.0 Right shoulder strain S46.916C
== END 2022-11-19 09:34 | disposition home or self-care (01) ==
LOC: HO.HMGC 08:31
PROVIDERS: PCP Internal Medicine; Visit Provider Internal Medicine
DX: E11.9 Type 2 diabetes mellitus without complications (principal); I10 Essential (primary) hypertension; E78.5 Hyperlipidemia, unspecified; E89.0 Postprocedural hypothyroidism; S46.911A Strain of unspecified muscle, fascia and tendon at shoulder and upper arm level, right arm, initial encounter
CPT/HCPCS: 99214

== ENCOUNTER 2022-11-26 08:18 | Outpatient (REF) | payer OTHER, SELFPAY ==
[2022-11-26 11:01] LABS: Estimated Average Glucose 126 mg/dL
[2022-11-26 11:18] LABS: Creatinine Urine 86.72 mg/dL; Microalbumin Urine < 5.0 mg/L
[2022-11-26 12:24] LABS: Alanine Aminotransferase 18 U/L (0-31); Albumin Level 4.2 g/dL (3.5-5.0); Alkaline Phosphatase 65 U/L (39-117); Anion Gap 12 (12-20); Aspartate Amino Transferase 15 U/L (5-31); Bilirubin Total 0.4 mg/dL (0.0-1.0); Blood Urea Nitrogen 17 mg/dL (9-16); Calcium 9.5 mg/dL (8.4-10.2); Carbon Dioxide 25 mmol/L (22-29); Chloride 107 mmol/L (96-108); Cholesterol 163 mg/dL; Estimated Glomerular Filt Rate > 60; Glucose Fasting 116 mg/dL (60-99); HDL Cholesterol 46 mg/dL; LDL Cholesterol Calculated 94 mg/dl; Potassium 4.1 mmol/L (3.3-5.1); Sodium 140 mmol/L (135-145); Total Protein 6.7 g/dL (6.5-8.0); Triglycerides 119 mg/dL
[2022-11-26 12:51] LABS: Free T4 (Free Thyroxine) 1.06 ng/dL (0.71-1.85); Thyroid Stimulating Hormone 1.18 uIU/mL (0.32-4.0); Vitamin D 25-OH Total 16.3 ng/mL (>30)
[2022-11-28 07:04] LABS: LDL Cholesterol Direct 88 mg/dL (<100)
== END 2022-11-26 08:19 | disposition home or self-care (01) ==
LOC: HO.10HDL 08:18
PROVIDERS: Visit Provider Internal Medicine
DX: E11.9 Type 2 diabetes mellitus without complications (principal); E78.5 Hyperlipidemia, unspecified; E89.0 Postprocedural hypothyroidism; I10 Essential (primary) hypertension
CPT/HCPCS: 36415; 80053; 80061; 82043; 82306; 83036; 83721; 84439; 84443

== ENCOUNTER 2022-12-06 14:21 | Outpatient (REF) | payer OTHER, SELFPAY ==
--- NOTE | ~2022-12-06 | MR_ITS ---
EXAMINATION: MR SHOULDER WITHOUT CONTRAST, RIGHT CLINICAL INFORMATION: Persistent pain right shoulder. COMPARISON: None available. TECHNIQUE: MRI of the shoulder without contrast was performed on a high-field scanner. FINDINGS: ROTATOR CUFF: There is a focal longitudinal intrasubstance partial tear of the anterior supraspinatus tendon. Question tiny pinhole extension to the bursal side with adjacent small amount of fluid in the subacromial subdeltoid bursa. The tear measures 7 mm transverse and 3 mm AP. There is additional heterogeneity throughout the tendon and musculotendinous junction compatible with additional areas of tendinosis and small areas of partial tearing but no measurable defect. Small lobulated area of cystic change at the musculotendinous junction likely related to areas of interstitial partial tearing. Mild surrounding edema in the muscle No atrophy or fatty infiltration of muscle. Infraspinatus: Minimal heterogeneity of the tendon compatible with tendinosis and small areas of interstitial partial tearing, no measurable defect. No atrophy or fatty infiltration of the muscle. Teres minor normal. Subscapularis: Mild heterogeneity compatible with tendinosis. Muscle normal. BICEPS: Normal. CORACOACROMIAL ARCH: The undersurface of the acromion is curved with no subacromial spur. The acromioclavicular joint is normal. LABRUM/CAPSULE: Normal. GLENOHUMERAL JOINT/MARROW: Normal. MR/MR shoulder RT wo con IMPRESSION: 1. Small partial tear of the anterior supraspinatus tendon. Question tiny pinhole defect/communication with the bursal side Additional tendinosis and small areas of interstitial partial tearing but no measurable defect. 2. Minimal abnormality of the infraspinatus compatible with tendinosis and small areas of interstitial partial tearing but no measurable defect. 3. Subscapularis tendinosis.
== END 2022-12-06 14:22 | disposition home or self-care (01) ==
LOC: HO.MRI 14:21
PROVIDERS: PCP Internal Medicine; Visit Provider Internal Medicine
DX: S46.911A Strain of unspecified muscle, fascia and tendon at shoulder and upper arm level, right arm, initial encounter (principal)
CPT/HCPCS: 73221

== ENCOUNTER → 2022-12-27 10:05 | Outpatient (BNVA) | payer OTHER, SELFPAY | PROVIDERS: PCP Internal Medicine; Visit Provider Physician Assistant | DX: M75.101 Unspecified rotator cuff tear or rupture of right shoulder, not specified as traumatic (principal); E11.9 Type 2 diabetes mellitus without complications | CPT/HCPCS: 20610; J1020 ==

== ENCOUNTER 2023-02-11 17:00 | Outpatient (RCR) | payer OTHER, SELFPAY ==
--- NOTE | 2023-01-29 16:17 | MHC.PT.EP ---
[facility] [place] Office [place] Office [place] Office [address] Rubén Huffman [address] [phone] F: [phone] F: [phone] F: [phone] F: [phone] Physical Therapy Plan of Care Date of Evaluation: Date of Surgery: N/A Diagnosis: Unspecified rotator cuff tear or rupture of right shoulder, not specified as traumatic traumatic Painful arc syndrome of right shoulder Assessment: Pt is a pleasant and motivated 52yo F who presents to PT with R shoulder pain. MRI revealed small partial tear of the anterior supraspinatus tendon. She presents to PT with current impairments of pain, decreased R shoulder ROM, decreased R shoulder strength, soft tissue restrictions and impaired posture. She is limited functionally by overhead ADLs, lifting, reaching, pushing, and pulling. She is an excellent candidate for skilled PT in order to address current impairments to facilitate return to PLOF. She is recommended to be seen 2x/week for 4 weeks and will be reassessed at that time. Frequency and Duration: The patient will be seen 2x/week for 4 weeks Short Term Goals: Pt will be I with HEP to promote self management of symptoms Pt will improve R shoulder flexion by at least 10 degrees Longterm Goals: Pt will achieve full ROM all planes of R shoulder with minimal to no pain Pt will perform overhead ADLs with minimal to no compensation Pt will demonstrate improvements in function as evidenced by statistically significant improvement in SPADI outcome measure Treatment Plan: Modalities to reduce pain, spasms and effusion. Manual therapy to restore motion and function. Therapeutic exercise to improve strength and flexibility. Neuromuscular re-education for posture and balance. Therapeutic activities to return to functional activities of daily living. Electronically signed by: Bonnie Chaney, PT, DPT Please sign and return to therapist. Thank you for your referral.
--- NOTE | 2023-03-27 14:19 | MHC.PT.DC ---
[facility] [place] Office [place] Office [place] Office [address] Rubén Huffman 140 [facility] [phone] F: [phone] F: [phone] F: [phone] F: [phone] Physical Therapy Discharge Report Diagnosis: Unspecified rotator cuff tear or rupture of right shoulder, not specified as traumatic traumatic Painful arc syndrome of right shoulder Date of Surgery: N/A Date of Evaluation: 01/29/23 Date of Discharge: 03/27/23 Treatments to Date: 2 Cancellations to Date: 6 No Shows to Date: Discharge Status: Patient Elected to Stop Discharge Summary: Pt was seen for PT from 01/29/23-02/06/23. Her last attended appointment was 02/06/23. She is being D/C from skilled PT as she has not attended in >30 days. Pt current level of function unknown at this time. Electronically signed by: Bonnie Chaney, PT, DPT Please sign and return to therapist. Thank you for your referral.
== END 2023-03-27 14:18 | disposition home or self-care (01) ==
LOC: HO.PT 17:00
PROVIDERS: PCP Internal Medicine; Visit Provider Physician Assistant
DX: M75.101 Unspecified rotator cuff tear or rupture of right shoulder, not specified as traumatic (principal)
CPT/HCPCS: 97110; 97140; 97162

== ENCOUNTER 2023-02-12 14:45 | Outpatient (AMB) | payer OTHER, SELFPAY ==
--- NOTE | 2023-02-12 15:00 | AM.OFFWIN_ITS ---
Intake Vital Signs 02/12/23 15:01 Height 5 ft 2 in BP 122/70 Blood Pressure Location Lt brachial Position Sitting Pulse 68 Pulse Source Pulse Oximeter Temp 97.9 F Temp Source Temporal Artery Scan Pulse Oximetry (%) 98 Oxygen Delivery Method Room Air Intake Visit Reasons: EP, Depression, anxiety Intake Note: pt is here for c/o depression and anxiety. Patient Tobacco Use Status: Current someday Tobacco user Allergies oxycodone [From PERCOCET] Adverse Reaction (Unknown, Verified 02/12/23 15:23) NAUSEA & VOMITING Medication List - Last Reconciled 02/12/23 by Rashard Alves MD atorvastatin 20 mg PO DAILY blood-glucose meter (FreeStyle Lite Meter kit) As directed chlorthalidone 25 mg PO QAM cholecalciferol (vitamin D3) 2,000 units PO DAILY 3 months empagliflozin (Jardiance) 25 mg PO QAM fenofibrate micronized 134 mg PO DAILY flash glucose scanning reader (PivotStyle Chloé 2 [place]) As directed flash glucose sensor (FreeStyle Chloé 2 Sensor kit) As directed every 2 weeks levothyroxine 112 mcg PO QAM lisinopril 2.5 mg PO DAILY meloxicam 15 mg PO DAILY omeprazole 40 mg PO DAILY PRN sitagliptin phosphate (Januvia) 100 mg PO DAILY venlafaxine ER 37.5 mg PO DAILY Do you need a note to return to daycare/school/sports/work: No HPI EP, Depression, anxiety HPI Details 52-year-old female presents to the office for a sick visit. Patient is very tearful. Her wants to separate, her mother just . She is tearful and unable to function. She would like to use her time off at this moment. She wants an FMLA form filled. Not sleeping very well. [facility] Medical History Carpal tunnel syndrome Controlled diabetes mellitus type II without complication De Quervain's tenosynovitis, left DJD (degenerative joint disease) Epicondylitis Essential hypertension Gastritis Gastroparesis Gastroparesis Hot flashes due to menopause Hyperlipidemia LDL goal <100 Lateral epicondylitis, right elbow Plantar wart, left foot Postablative hypothyroidism Superficial burn of right thigh Vitamin D deficiency Surgical History Hx of section Hx of colonoscopy Hx of endoscopy Hx of foot surgery Hx of mammogram Hx of tubal ligation Family History Father Diabetes CVD (cardiovascular disease) Stomach ulcer Mother Diabetes Colon polyps Dementia Family/Other Stomach cancer Social History Household Members: Spouse and Children Housing: House Alcohol intake: current Alcohol intake frequency: holidays/special occasions only Patient Tobacco Use Status: Current someday Tobacco user Tobacco use type: Cigarette e-Cigarette/Vaping Use: Currently Using Current occupational status: employed 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 Patient will bring [place] paperwork and I have agreed to fill it. It will be for 2 weeks duration. Coding Level of Care Code Est Pt Level 3 (34337) Diagnoses Grief reaction F43.21
[2023-02-12 15:01] VITALS: BP 122/70; PULSE 68; TEMP 36.6; O2SAT 98
== END 2023-02-12 15:40 | disposition home or self-care (01) ==
PROVIDERS: PCP Internal Medicine; Visit Provider Internal Medicine
DX: F43.21 Adjustment disorder with depressed mood (principal)
CPT/HCPCS: 99213

== ENCOUNTER 2023-03-13 14:37 | Outpatient (AMB) | payer OTHER, SELFPAY ==
--- NOTE | 2023-03-13 15:02 | MHC.OFFVIS ---
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 Scribed for GAYATHRI Ojeda by Tina Adames medical aides teacher, on 03/13/2023 at 3:35 pm EST. Information Interpreted: non-clinical & clinical Bag Filler Machine Operator: Bag Filler Machine Operator Present (Jaylin) Allergies oxycodone [From PERCOCET] Adverse Reaction (Unknown, Verified 03/13/23 15:20) NAUSEA & VOMITING Is last menstrual period known: No Post menopausal: No Patient : No HPI HPI Comments History of Present Illness Details She is a postmenopausal woman presenting for annual exam. Doing well with no marker assembler concerns. Patient admits she tries to eat a healthy diet including Calcium and Vitamin D. She stays active with exercise. Currently not sexually active due to husbands health issues. Denies vaginal itching and irritation. Admits vaginal dryness, low libido and hot flashes. STD screening offered; she declines. Denies family hx of breast, colon and ovarian cancer. Last pap smear 03/11/22. Last mammogram 04/26/22. UTD on colonoscopy. [facility] Medical History Carpal tunnel syndrome Controlled diabetes mellitus type II without complication De Quervain's tenosynovitis, left DJD (degenerative joint disease) Epicondylitis Essential hypertension Gastritis Gastroparesis Gastroparesis Hot flashes Hot flashes due to menopause Hyperlipidemia LDL goal <100 Lateral epicondylitis, right elbow Low libido Menopausal vaginal dryness Plantar wart, left foot Postablative hypothyroidism Superficial burn of right thigh Vitamin D deficiency Surgical History Hx of section Hx of colonoscopy Hx of endoscopy Hx of foot surgery Hx of mammogram Hx of tubal ligation Family History Father Diabetes CVD (cardiovascular disease) Stomach ulcer Mother Diabetes Colon polyps Dementia Family/Other Stomach cancer Social History (Updated 03/13/23 @ 16:00 by Cat Chan CNM) Household Members: Spouse and Children Housing: House Alcohol intake: current Alcohol intake frequency: holidays/special occasions only Patient Tobacco Use Status: Current someday Tobacco user Tobacco use type: Cigarette e-Cigarette/Vaping Use: Currently Using Current occupational status: employed Current [place] [employer] [place]rt 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 Gender identity: Female Cognitive needs: No Hearing needs: No Vision needs: Yes Female Reproductive History Menstrual control method: permanent sterilization Permanent Sterilization: BTL Total pregnancies: 2 Full term: 2 Number of Living Children: 2 Date of last pap smear: 03/11/22 (neg pap and hpv) Date of Mammogram: 04/26/22 (Birad 2) Physical Exam Vital Signs: Last Vital Signs BP 120/82 03/13/23 15:03 BMI result Body Mass Index 26.2 Const General: cooperative, healthy appearing, no acute distress, well developed and alert Orientation/consciousness: patient oriented x3 HEENT Head: Yes normal to inspection Eyes General: appearance normal, both eyes and all related structures Neck Neck: Yes normal visual inspection Thyroid: Thyroid normal Chest Chest palpation & inspection: normal inspection of the chest Breast/axilla inspection: normal inspection of the breasts (no puckering, dimpling, peau de orange, retraction, discharge, masses) Breast/axilla palpation: normal palpation of the breasts Resp Effort & Inspection: normal respiratory effort GI Inspection: Yes normal to inspection Palpation (GI): Soft to palpation (to palpation) Rectal Exam - Female: deferred General: Yes bladder normal to inspection External Female Exam: normal external appearance and normal appearance of the urethra Speculum Exam - Vagina: normal appearance of the vagina, normal palpation and vagina atrophic Speculum Exam - Cervix: normal appearance of the cervix and normal palpation Bimanual exam- vagina & uterus: normal palpation and normal palpation Bimanual Exam- Adnexa, other: normal adnexae and no masses Skin General skin exam: no rashes or lesions noted Neuro General: patient oriented x3 Cognition (Neuro): normal cognition Extrem General: Yes normal to inspection Psych Attitude: cooperative Thought process: Normal thought process present Assessment & Plan Assessment & Plan (1) Encounter for well woman exam: Code(s): Z01.419 - Encounter for gynecological examination (general) (routine) without abnormal findings Plan: Discussed: Current recommendations for pap smears per ASCCP guidelines. Breast awareness and periodic self breast exams. Encouraged yearly mammograms. Maintaining a healthy lifestyle including a well balanced diet including Calcium and Vitamin D and routine exercise. Contact office with any PMB. All of her questions and concerns were addressed to the best of my ability RTO in 1 year for AG. (2) Hot flashes: Code(s): R23.2 - Flushing Plan: Counseled on hot flashes. Avoid spicy foods and alcohol. Wear light, layered clothing. Sleep with fan on. Can also try a cooling pillow or mattress. Stay well hydrated. (3) Low libido: Comment: Natural progression of aging and hormonal changes w/low libido. Relationship concerns: couples counseling Code(s): R68.82 - Decreased libido Plan: Informed HRT is not recommended to risk factors including age. (4) Menopausal vaginal dryness: Code(s): N95.1 - Menopausal and female climacteric states Plan: Recommend Replens, [place] jelly, Astroglide or coconut oil for vaginal dryness. Instruction given. Discussed menopausal changes and effects to body and vagina. Coding Level of Care Code Est Pt Prev Care 40-64y(87000) Diagnoses Encounter for well woman exam Z01.419 Hot flashes R23.2 Low libido R68.82 Menopausal vaginal dryness N95.1
[2023-03-13 15:03] VITALS: BP 120/82; BMI 26.2
== END 2023-03-13 15:57 | disposition home or self-care (01) ==
LOC: HO.HWS 14:37
PROVIDERS: PCP Internal Medicine; Visit Provider Advanced Practice Midwife
DX: Z01.419 Encounter for gynecological examination (general) (routine) without abnormal findings (principal); N95.1 Menopausal and female climacteric states; R23.2 Flushing; R68.82 Decreased libido
CPT/HCPCS: 99396

== ENCOUNTER → 2023-03-13 14:37 | Outpatient (BNVA) | payer OTHER, SELFPAY | PROVIDERS: PCP Internal Medicine; Visit Provider Advanced Practice Midwife ==

== ENCOUNTER 2023-04-08 08:39 | Outpatient (REF) | payer OTHER, SELFPAY ==
[2023-04-08 11:38] LABS: Alanine Aminotransferase 15 U/L (0-31); Anion Gap 9 (12-20); Aspartate Amino Transferase 18 U/L (5-31); Blood Urea Nitrogen 15 mg/dL (9-16); Calcium 9.4 mg/dL (8.4-10.2); Carbon Dioxide 29 mmol/L (22-29); Chloride 108 mmol/L (96-108); Cholesterol 144 mg/dL (<200); Estimated Glomerular Filt Rate > 60; Glucose Fasting 105 mg/dL (60-99); HDL Cholesterol 46 mg/dL (>40); LDL Cholesterol Calculated 79 mg/dL (<100); Potassium 3.6 mmol/L (3.3-5.1); Sodium 142 mmol/L (135-145); Triglycerides 95 mg/dL (<150)
[2023-04-08 11:42] LABS: Thyroid Stimulating Hormone 1.58 uIU/mL (0.32-4.0); Vitamin D 25-OH Total 65.5 ng/mL (>30)
[2023-04-08 12:29] LABS: Estimated Average Glucose 105 mg/dL; Hemoglobin A1c % 5.3 % (<6.0)
== END 2023-04-08 08:40 | disposition home or self-care (01) ==
LOC: HO.10HDL 08:39
PROVIDERS: Visit Provider Internal Medicine
DX: E11.9 Type 2 diabetes mellitus without complications (principal); N95.1 Menopausal and female climacteric states; I10 Essential (primary) hypertension; E78.5 Hyperlipidemia, unspecified; E89.0 Postprocedural hypothyroidism
CPT/HCPCS: 36415; 80048; 80061; 82306; 83036; 84439; 84443; 84450; 84460

== ENCOUNTER → 2023-04-28 07:45 | Outpatient (BNV) | payer OTHER, SELFPAY | PROVIDERS: PCP Internal Medicine; Referring Provider Advanced Practice Midwife; Visit Provider Radiology Diagnostic Radiology | DX: Z12.31 Encounter for screening mammogram for malignant neoplasm of breast (principal) | CPT/HCPCS: 77063; 77067 ==

== ENCOUNTER 2023-04-28 08:15 | Outpatient (REF) | payer OTHER, SELFPAY ==
--- NOTE | ~2023-04-28 | MM_ITS ---
EXAMINATION: MM SCREENING DIGITAL BREAST TOMOSYNTHESIS, BILATERAL CLINICAL INFORMATION: Screening. Asymptomatic. COMPARISON: Mammography: 04/26/2022, 04/24/2021, 10/23/2020, 04/28/2020, 04/27/2020 (BI-RADS 0) left breast ultrasound 04/26/2022, 04/24/2021, 10/23/2020, 04/28/2020. TECHNIQUE: Digital breast tomosynthesis is performed in both the craniocaudal and mediolateral oblique views along with computer-aided detection (CAD). Synthesized 2D images are generated from the tomosynthesis. FINDINGS: There are scattered areas of fibroglandular density (ACR BI-RADS breast composition Category b). There are no suspicious masses, suspicious grouped calcifications, or areas of architectural distortion. The parenchymal pattern is stable from prior exams. There are similar scattered calcifications which are punctate in morphology bilaterally, without aggressive change, predominantly central and upper breasts.. Similar appearing oval mass at the 1:00 central left breast is a known cyst and benign. MM/MM tomosynthesis screening BI IMPRESSION: No mammographic evidence of malignancy. Stable benign findings. ASSESSMENT: BI-RADS BI-RADS 2 - Benign Findings RECOMMENDATION: Routine annual mammography screening. 1 year F/U This examination should not preclude the clinical evaluation of a suspicious palpable abnormality. This patient's information was entered into a reminder system with a target due date for their next mammogram.
== END 2023-04-28 08:16 | disposition home or self-care (01) ==
LOC: HO.MAMMO 08:15
PROVIDERS: PCP Internal Medicine; Referring Provider Advanced Practice Midwife; Visit Provider Internal Medicine
DX: Z12.31 Encounter for screening mammogram for malignant neoplasm of breast (principal)
CPT/HCPCS: 77063; 77067

== ENCOUNTER 2023-05-20 10:15 | Outpatient (AMB) | payer OTHER, SELFPAY ==
--- NOTE | 2023-05-20 10:45 | A.OFFPC_ITS ---
Vital Signs 05/20/23 10:46 Height 5 ft 2 in Weight 141 lb 2 oz BMI 25.8 BP 110/62 Blood Pressure Location Lt brachial Position Sitting Pulse 61 Pulse Source Pulse Oximeter Pulse Oximetry (%) 97 Oxygen Delivery Method Room Air Intake Visit Reasons: 4 Month follow up rescheduled from 04/11 Intake Note: pt is here to follow on labs/DM pt wants the flu vaccine Allergies oxycodone [From PERCOCET] Adverse Reaction (Unknown, Verified 05/20/23 11:16) NAUSEA & VOMITING Medication List - Last Reconciled 05/20/23 by Jonelle Prakash MD atorvastatin 20 mg PO DAILY blood-glucose meter (FreeStyle Lite Meter kit) As directed chlorthalidone 25 mg PO QAM cholecalciferol (vitamin D3) 2,000 units PO DAILY 3 months clonazepam 0.5 mg PO BEDTIME fenofibrate micronized 134 mg PO DAILY flash glucose scanning reader (cityguruStyle [place] 2 [place]) As directed flash glucose sensor (FreeStyle Chloé 2 Sensor kit) As directed every 2 weeks levothyroxine 112 mcg PO QAM lisinopril 2.5 mg PO DAILY omeprazole 40 mg PO DAILY PRN sitagliptin phosphate (Januvia) 100 mg PO DAILY venlafaxine ER 37.5 mg PO DAILY Tobacco use date assessed: 05/20/23 Dental Screening Dental Screen Date: 05/20/23 Did you have a dental visit in the last 12 months?: Yes Did you have a dental problem in the last 6 months where you did not have access to dental care?: No Was dental information given to patient?: Patient has dentist HPI 4 Month follow up rescheduled from 04/11 HPI Details 52-year-old lady with dyslipidemia, hype rtension, hypothyroidism, diabetes mellitus, and gastritis, here today follow-up. She has been feeling well, stopped taking Jardiance in only has been taking Januvia, as she was developing hypoglycemic attacks especially at night or early in the mornings. Her blood sugar readings now has been running less than 120 mg/dL whenever she checks it. Latest blood sugar is at 5 .3% She also is requesting a order to get a bone density scan, as she has had early menopause, in her early 40s. No history of fractures. [facility] Medical History (Updated 05/21/23 @ 02:13 by Jonelle Prakash MD) Numbness and tingling in both hands Right medial knee pain Early menopause occurring in patient age younger than 45 years Menopausal vaginal dryness Low libido Hot flashes Vitamin D deficiency Gastritis Controlled diabetes mellitus type II without complication Superficial burn of right thigh De Quervain's tenosynovitis, left Lateral epicondylitis, right elbow Hot flashes due to menopause Gastroparesis Gastroparesis Plantar wart, left foot Epicondylitis Carpal tunnel syndrome DJD (degenerative joint disease) Essential hypertension Hyperlipidemia LDL goal <100 Postablative hypothyroidism Surgical History Hx of endoscopy Hx of colonoscopy Hx of mammogram Hx of foot surgery Hx of tubal ligation Hx of section Family History Father Diabetes CVD (cardiovascular disease) Stomach ulcer Mother Diabetes Colon polyps Dementia Family/Other Stomach cancer Social History Household Members: Spouse and Children Housing: House Alcohol intake: current Alcohol intake frequency: holidays/special occasions only Patient Tobacco Use Status: Current someday Tobacco user Tobacco use type: Cigarette e-Cigarette/Vaping Use: Currently Using Current occupational status: employed Current occupation: [employer] [place]/rt hand Gender identity: Female Cognitive needs: No Hearing needs: No Vision needs: Yes Questionnaire PHQ-9 Over the last 2 weeks, how often have you been bothered by any of the following problems? Depression Screening Interpretation: Negative Depression Screening Done: Yes Source: Developed by Drs. Vladimir Carlson, Kady Pardo, Deven Victoria and colleagues, with an educational skye from [employer]. Thrive Questionnaire Date Thrive assessed: 11/27/22 FIDELINA-7 AMB Questionnaire FIDELINA-7 Date FIDELINA - 7 assessed: 11/27/22 Source: Developed by Drs. Vladimir Carlson, Kady Pardo, Deven Victoria and colleagues, with an educational skye from [employer]. Review of Systems Const Denies body aches, Denies fatigue, Denies headache(s), Denies malaise and Reports weight loss Eyes Details: Currently sees Dr. Chowdary Denies blurry vision ENT Denies headache(s), Denies nasal congestion and Denies sore throat Card Denies chest pain, Denies irregular heart rhythm, Denies palpitations and Denies dyspnea Resp Denies cough and Denies dyspnea GI Denies abdominal pain, Denies change in bowel habits and Denies heartburn Reports no additional complaints Skin/Breast Denies breast skin changes, Denies breast pain, Denies breast mass, Denies lesions and Denies rash Neuro Denies headache(s) and Denies radicular pain Endo Denies fatigue and Denies palpitations Shimon/Lymph Denies easy bruising Physical exam (Primary Care) Vital Signs: Last Vital Signs Pulse 61 05/20/23 10:46 BP 110/62 05/20/23 10:46 Pulse Ox 97 05/20/23 10:46 Oxygen Delivery Method Room Air 05/20/23 10:46 BMI result Body Mass Index 25.8 Tobacco/Smoking Status: Tobacco use Status Tobacco use date assessed 05/20/23 05/20/23 10:52 Patient Tobacco Use Status Current someday Tobacco 05/20/23 10:52 Tobacco use type Cigarette 05/20/23 10:52 e-Cigarette/Vaping Use Currently Using 05/20/23 10:52 Depression Screening Interpretation: Negative Thrive Assessment: Date of Thrive Assessment Date Thrive assessed 11/27/22 05/20/23 10:52 Const General: cooperative, comfortable and no acute distress Orientation/consciousness: patient oriented x3 Limitations: no limitations HENMT Mouth: Normal oral and palatal mucosa present, oropharynx normal and moist mucous membranes Eyes Pupils: Equal, round and reactive pupils present Neck Neck: Yes full ROM, Yes no lymphadenopathy and Yes supple Resp Effort & Inspection: normal respiratory effort and able to speak in complete sentences Auscultation: clear to auscultation bilaterally Cardio Rate: regular rate Rhythm: regular rhythm Heart sounds: S1 normal heart sound present and S2 normal heart sound present GI Inspection: Yes normal to inspection Palpation (GI): Soft to palpation, nontender and no masses Auscultation: normal bowel sounds General: Yes no CVA tenderness and Yes deferred (Sees [employer] [facility] [place] [facility] has appointment scheduled) Back/Spine/Pelvis Back: no CVA tenderness and No back tenderness Skin General skin exam: no rashes or lesions noted Neuro General: patient oriented x3, gait normal, tone normal, moves all extremities, Normal light touch and pain sensation and no focal motor deficits Cranial nerves: Yes Equal, round and reactive pupils present Cognition (Neuro): normal cognition Gait exam (Neuro): Normal gait present Motor exam (neuro): 5/5 motor strength present throughout Extrem Other: Decreased range of motion of right shoulder joint pain and stiffness Psych Appearance: grossly normal and well kempt Mental Status: mental status grossly normal Speech and movement: Normal speech and movement present Affect: normal affect Attitude: cooperative Thought process: Normal thought process present Thought content: Normal thought content present Office Procedures Flu Questionnaire Does the patient have a severe egg allergy?: No Does the patient have severe life threatening allergies?: No Does the patient have a fever or illness today?: No Has the patient ever had Guillain-Calabash Syndrome?: No Has the patient ever had any past reaction to a flu shot?: No Immunizations flu vacc [id number] 6mos up(PF) 60 mcg(15 mcgx4)/0.5 mL IM syringe Performing Provider: Jonelle Prakash MD Performing Location: [facility] Administered by: Elizabeth Correa CMA on 05/20/23 11:18 Dose Route Admin Location Dispensed Lot Number Expiration Date NDC Supervisor Drying And Winding 0.5 mL IM Left Deltoid 0.5 mL [id number] 02/01/24 98120-973-92 [place] VIS Given Date VIS Provided VIS Publication Date 05/20/23 Single Vaccine 21 Eligibility Eligibility Date Funding Source Not [facility] Eligible 05/20/23 Private Results Reviewed Results Reviewed: RUN: 05/20/23 1109 PAGE 1 [facility] [address] [place] [id number] Hydrometeorological Technician: Maxi Bustos M.D. Specimen Inquiry Name: Elizabeth Henrdix Age/Sex: 52/F : 1970 Unit#: [id number] Attend Dr: Jonelle Prakash MD Re04/08/23 Status: DEP REF Location: [address] ch: SPEC : [id number] [place]: 04/08/23 STATUS: COMP REQ : [id number] RECD: 04/08/23-[address]: Jonelle Prakash MD COMP: 04/08/23 ENTERED: 04/08/[address] [facility] [address]: ORDERED: Met Prof Fast, AST, ALT, Lipid Panel, Vitamin D 25-OH, Free T4, TSH Test Result Flag Reference Site Sodium 142 135-145 mmol/L Potassium 3.6 3.3-5.1 mmol/L CL 108 96-108 mmol/L CO2 29 22-29 mmol/L Gap 9 L 12-20 BUN 15 9-16 mg/dL Creat 0.84 0.5-1.4 mg/dL EGFR > 60 NOTE: For -Ivorian individuals, multiply the result by 1.210. Chronic Kidney Disease: Estimated GFR < 60 mL/min/1.73m2 Severe Kidney Disease: Estimated GFR < 15 mL/min/1.73m2 FBS 105 H 60-99 mg/dL A fasting glucose from 100-125 mg/dl is considered impaired (pre-diabetes). CA 9.4 8.4-10.2 mg/dL AST (GOT) 18 5-31 U/L ALT (GPT) 15 0-31 U/L Triglyceride 95 <150 mg/dL Desirable Triglyceride: less than 150 mg/dL Borderline High Triglyceride 150-199 mg/dL High Triglyceride: 200-499 mg/dL Very High Triglyceride: greater than or equal to 5OO mg/dL Cholesterol 144 <200 mg/dL Desirable Cholesterol: less than 200 mg/dL Borderline High Cholesterol: 200-239 mg/dL High Cholesterol: greater than 239 mg/dL LDL Calculated 79 <100 mg/dL Desirable LDL: less than 100 mg/dL Near Optimal/Above Optimal LDL: 110-129 mg/dL Borderline High LDL: 130-159 mg/dL High LDL: 160-189 mg/dL Very High LDL: greater than or equal to 190 mg/dL HDL 46 >40 mg/dL Desirable HDL: greater than 40 mg/dL Note: This HDL assay may give artificially low results in patients with liver disease. Vit D 25-OH Tot 65.5 >30 ng/mL Health Based Reference Values* < 20 ng/mL Deficient 20-30 ng/mL Insufficient > 30 ng/mL Sufficient *Verena MAHARAJ. N Engl J Med. 2007;[id number]:266-280 Care must be taken in interpreting Vitamin D results from different laboratories and methodologies. Published data demonstrated that results from patients undergoing hemodialysis may show a negative bias when tested with various automated 25-OH vitamin D assays when compared to LC-MS/MS. When testing samples from patients whose predominant form of Vitamin D is Vitamin D2, such as patients receiving Vitamin D2 supplementation, results that are subtherapeutic should be confirmed with another method such as LC-MS/MS. Free T4 0.90 0.71-1.85 ng/dL TSH 3rd Gen. 1.58 0.32-4.0 uIU/mL TSH 3rd Generation ([facility]) Laboratory Tests 04/08/23 08:45 Estimat Average Glucose 105 Hemoglobin A1c % 5.3 Assessment and Plan Assessment & Plan (1) Early menopause occurring in patient age younger than 45 years: Code(s): E28.319 - Asymptomatic premature menopause Plan: Ordered bone density scan, encouraged patient to do regular weight-bearing exercise, take adequate calcium from dietary sources and continue with vitamin-D 3 at 2000 units daily (2) Gastritis: Code(s): K29.70 - Gastritis, unspecified, without bleeding Qualifiers: Gastritis type: unspecified gastritis Chronicity: unspecified Gastritis bleeding: presence of bleeding unspecified Qualified Code(s): K29.70 - Gastritis, unspecified, without bleeding Plan: Takes omeprazole (3) Controlled diabetes mellitus type II without complication: Code(s): E11.9 - Type 2 diabetes mellitus without complications Plan: Diabetes mellitus controlled on Januvia, with recent hemoglobin A1c at 5.3%. Date with her diabetes retinopathy screening with Dr. Chowdary. Flu vaccine given today, reminded to get her COVID booster, up-to-date with her pneumonia vaccine (4) Essential hypertension: Code(s): I10 - Essential (primary) hypertension Plan: Blood pressure at goal of less than 130/80. Continue with current medication. Reinforced importance of following a low sodium diet, getting regular exercise, and lowering stress levels. (5) Hot flashes due to menopause: Comment: Controlled with taking venlafaxine ER Code(s): N95.1 - Menopausal and female climacteric states Plan: Continue venlafaxine ER 37.5 mg daily (6) Hyperlipidemia LDL goal <100: Code(s): E78.5 - Hyperlipidemia, unspecified Plan: Reviewed recent fasting lipid profile with patient with levels . Continue with fenofibrate and atorvastatin , in addition to adherence to low-cholesterol diet and regular exercise, at least 30 minutes 3 to 4 times a week. Advised patient to make healthy food choices, eat more fruits, vegetables, whole grains, wild caught fish and low-fat dairy. Limit amount of meat and fried or fatty food products, as well as processed foods and fast foods. Follow-up scheduled with repeat fasting lipid panel in months. (7) Postablative hypothyroidism: Code(s): E89.0 - Postprocedural hypothyroidism Plan: Continue with current dose of levothyroxine 112 mcg daily in a.m. Orders: Orders Influenza [id number] Immunization 05/20/23 Z23 - Encounter for immunization XR DEXA axial skeleton 05/20/23 E28.319 - Asymptomatic premature menopause Medications: Refilled chlorthalidone 25 mg PO QAM 90 tabs 3RF clonazepam administer 30 minutes before bedtime 0.5 mg PO BEDTIME 10 tabs 0RF fenofibrate micronized 134 mg PO DAILY 90 caps 3RF E78.5 - Hyperlipidemia, unspecified flash glucose sensor (FreeStyle Chloé 2 Sensor kit) As directed every 2 weeks 2 ea 5RF E11.65 - Type 2 diabetes mellitus with hyperglycemia lisinopril 2.5 mg PO DAILY 90 tabs 3RF I10 - Essential (primary) hypertension sitagliptin phosphate (Januvia) 100 mg PO DAILY 90 tabs 3RF E11.9 - Type 2 diabetes mellitus without complications atorvastatin 20 mg PO DAILY 90 tabs 3RF E78.5 - Hyperlipidemia, unspecified cholecalciferol (vitamin D3) 2,000 units PO DAILY 3 months 90 caps 3RF levothyroxine 112 mcg PO QAM 90 tabs 3RF E89.0 - Postprocedural hypothyroidism venlafaxine ER 37.5 mg PO DAILY 90 caps 3RF Coding Level of Care Code Est Pt Level 4 (55952) Diagnoses Early menopause occurring in patient age younger than 45 years E28.319 Gastritis, presence of bleeding unspecified, unspecified chronicity, unspecified gastritis type K29.70 Gastritis type: unspecified gastritis Chronicity: unspecified Gastritis bleeding: presence of bleeding unspecified Controlled diabetes mellitus type II without complication E11.9 Essential hypertension I10 Hot flashes due to menopause N95.1 Hyperlipidemia LDL goal <100 E78.5 Postablative hypothyroidism E89.0
[2023-05-20 10:46] VITALS: BP 110/62; PULSE 61; O2SAT 97; BMI 25.8
== END 2023-05-20 11:38 | disposition home or self-care (01) ==
PROVIDERS: PCP Internal Medicine; Visit Provider Internal Medicine
DX: Z23 Encounter for immunization (principal)
CPT/HCPCS: 90471; 90686; 99214

== ENCOUNTER 2023-05-30 08:23 | Outpatient (REF) | payer OTHER, SELFPAY ==
--- NOTE | ~2023-05-30 | MM_ITS ---
EXAMINATION: BONE DENSITOMETRY CLINICAL INDICATION: Asymptomatic premature menopause. COMPARISON: Baseline BD dated 07/11/2015. TECHNIQUE: Using a Realtime Technology DXA System (software version: 13.1) manufactured by [employer], dual-energy x-ray absorptiometry was performed of the lumbar spine and left hip. The images are of good technical quality. Summary results are attached. FINDINGS: LEFT FEMUR, NECK: Current: BMD 1.077 g/cm2, Z-score 1.3, T-score 0.3, normal. Baseline: BMD 1.098 g/cm2. LEFT FEMUR, TOTAL: Current: BMD 1.203 g/cm2, Z-score 2.2, T-score 1.5, normal, 4.1% decrease from baseline (<5% change is not significant). Baseline: BMD 1.254 g/cm2. AP SPINE L1-L4: Current: BMD 0.981 g/cm2, Z-score -0.9, T-score -1.7, osteopenia, 15.1% decrease from baseline (<5% change is not significant). Baseline: BMD 1.156 g/cm2. IDENTIFIED RISK FACTORS: Early menopause, secondary osteoporosis, thiazide, tobacco user (current smoker). HISTORY OF FRACTURE: None listed. MEDICATIONS: Vitamin D. MM/XR DEXA axial skeleton IMPRESSION: 1. DIAGNOSIS: Osteopenia based on the lowest T-score value of -1.7 in the lumbar spine applying World Health Organization criteria. 2. 10-YEAR FRACTURE RISK PREDICTION, FRAX: Major osteoporotic fracture (clinical spine, forearm, hip or shoulder) 2.3%. Hip fracture 0.1%. 3. Treatment Recommendations: NOF guidelines recommend consideration for treatment in postmenopausal women and men age 50 and older presenting with the following: -A hip or vertebral (clinical or morphometric) fracture. -T-score less than or equal to -2.5 at the femoral neck or spine after appropriate evaluation to exclude secondary causes. -Low bone mass at the hip or spine and a 10-year fracture probability by FRAX of greater than or equal to 3% for hip fracture or greater than or equal to 20% for major osteoporotic fracture based on the [place] adapted WHO algorithm. 4. Other Recommendations: All treatment decisions require clinical judgment and consideration of individual patient factors, including patient preferences, comorbidities, previous drug use, risk factors not captured in the FRAX model (e.g. frailty, falls, vitamin D deficiency, increased bone turnover, interval significant decline in bone density) and possible under or overestimation of fracture risk by FRAX. Additional medical evaluation for secondary cause of low bone mineral density may be appropriate. FUTURE SCAN RECOMMENDATION: People with diagnosed cases of osteoporosis or at high risk for fracture should have regular bone mineral density tests. For patients eligible for Medicare, routine testing is allowed once every 2 years. The testing frequency can be increased to one year for patients who have rapidly progressing disease, those who are receiving or discontinuing medical therapy to restore bone mass, or have additional risk factors.
== END 2023-05-30 08:24 | disposition home or self-care (01) ==
LOC: HO.MAMMO 08:23
PROVIDERS: PCP Internal Medicine; Visit Provider Internal Medicine
DX: Z13.820 Encounter for screening for osteoporosis (principal); E28.319 Asymptomatic premature menopause
CPT/HCPCS: 77080

== ENCOUNTER 2023-07-01 09:47 | Outpatient (AMB) | payer OTHER, SELFPAY ==
--- NOTE | 2023-07-01 10:02 | MHC.OFFVIS ---
Intake Vital Signs 07/01/23 10:12 Height 5 ft 2 in Weight 141 lb BMI 25.8 Intake Visit Reasons: OV- RT Hand CTS Intake Note: Elizabeth 52 yr old female who is right hand dominant presents today for her right hand CTR symptoms. States her symptoms have worsen since she was seen last year with Dr. Montoya. States she was suppose to have a EMG study however she was not able to due to a loss in her family. Patient states her symptoms are more constant especially at night time. 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. She presents with complaints of bilateral hand numbness, R>L. She complains of numbness in all digits of her right hand, including the small finger. Symptoms intermittent, but daily, worse at night. She says at times when she is sitting at rest she feels her entire hand starts tingling and she has some hand pain. She says her symptoms have worsened since she was last seen by me on 10/23/21. A NCS was ordered but due to a in the family she could not complete this last year. [facility] Medical History (Updated 07/01/23 @ 10:17 by Ludwig Judge) Numbness and tingling in both hands Right medial knee pain Early menopause occurring in patient age younger than 45 years Menopausal vaginal dryness Low libido Hot flashes Vitamin D deficiency Gastritis Controlled diabetes mellitus type II without complication Superficial burn of right thigh De Quervain's tenosynovitis, left Lateral epicondylitis, right elbow Hot flashes due to menopause Gastroparesis Gastroparesis Plantar wart, left foot Epicondylitis Carpal tunnel syndrome DJD (degenerative joint disease) Essential hypertension Hyperlipidemia LDL goal <100 Postablative hypothyroidism Surgical History Hx of endoscopy Hx of colonoscopy Hx of mammogram Hx of foot surgery Hx of tubal ligation Hx of section Family History Father Diabetes CVD (cardiovascular disease) Stomach ulcer Mother Diabetes Colon polyps Dementia Family/Other Stomach cancer Household Members: Spouse and Children Housing: House Alcohol intake: current Alcohol intake frequency: holidays/special occasions only Patient Tobacco Use Status: Current someday Tobacco user Tobacco use type: Cigarette e-Cigarette/Vaping Use: Currently Using Current occupational status: employed 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 Gender identity: Female Cognitive needs: No Hearing needs: No Vision needs: Yes Review of Systems Const All systems reviewed & are unremarkable except as noted in HPI and below Physical Exam Vital Signs: BMI result Body Mass Index 25.8 Const General: cooperative, healthy appearing and no acute distress Orientation/consciousness: patient oriented x3 HEENT Head: Yes normocephalic and Yes atraumatic Eyes EOM: EOMs intact bilaterally Resp Effort & Inspection: normal respiratory effort and able to speak in complete sentences Cardio Jugular venous distension: no JVD Skin General skin exam: turgor normal Rashes: no rashes Neuro General: patient oriented x3 Extrem Other: Evaluation of right Upper Extremity: The patient is alert, oriented, and in no acute distress Neuro: Numbness to the tips of all digits today in clinic, including the small finger No thenar or intrinsic wasting Good APB muscle belly firing and good finger cross Vascular: Cap refill brisk ROM: She can make a fist and extend all her digits No locking or catching Skin: No lacerations or abrasions. General: No Ecchymosis. No Erythema or evidence of infection. Psych Appearance: grossly normal Affect: normal affect Attitude: cooperative Assessment & Plan Assessment & Plan (1) Numbness and tingling in right hand: Code(s): R20.0 - Anesthesia of skin; R20.2 - Paresthesia of skin (2) Numbness and tingling in left hand: Code(s): R20.0 - Anesthesia of skin; R20.2 - Paresthesia of skin (3) Controlled diabetes mellitus type II without complication: Code(s): E11.9 - Type 2 diabetes mellitus without complications Plan Assessment & Plan: 1. Right hand numbness To the tips of all digits including the small finger Symptoms intermittent, but daily, worse at night 2. Left hand numbness In the median nerve distribution Symptoms intermittent & occasional I educated her about this condition I ordered a NCS to assess for peripheral nerve compression She was fitted for a right volar wrist splint to wear at night to help with nighttime numbness and tingling. She will follow up when completed for review Scribed for Keila Montoya MD by Ludwig Judge, medical laboratory scientist, on [ ] at [ ], EST. Orders: Orders NE nerve conduction velocity Today R20.0 - Anesthesia of skin, R20.2 - Paresthesia of skin Coding Level of Care Code Est Pt Level 3 (64076) Diagnoses Numbness and tingling in right hand R20.0; R20.2 Numbness and tingling in left hand R20.0; R20.2 Controlled diabetes mellitus type II without complication E11.9
[2023-07-01 10:12] VITALS: BMI 25.8
== END 2023-07-01 10:29 | disposition home or self-care (01) ==
PROVIDERS: PCP Internal Medicine; Visit Provider Orthopaedic Surgery
DX: R20.0 Anesthesia of skin (principal); R20.2 Paresthesia of skin; E11.9 Type 2 diabetes mellitus without complications
CPT/HCPCS: 99213

== ENCOUNTER → 2023-07-01 09:47 | Outpatient (BNVA) | payer OTHER, SELFPAY | PROVIDERS: PCP Internal Medicine; Visit Provider Orthopaedic Surgery ==

== ENCOUNTER 2023-07-18 09:25 | Outpatient (REF) | payer OTHER, SELFPAY ==
--- NOTE | 2023-07-18 09:27 | EMG_ITS ---
Chief complaint: History of Carpal Tunnel Syndrome based on EMG 15 years ago. No surgeries yet. Reason for referral: Evaluate for Carpal Tunnel Syndrome Referred by: Dr. Montoya Procedure done: Bilateral upper extremities NCS/EMG Precautions and/or limitations: None The limb temperature was monitored continuously and remained between 32-36 degrees C during the performance of the NCS. Nerve Conduction Studies Anti Sensory Summary Table ?Stim Site NR Onset (ms) Norm Onset (ms) Peak (ms) Norm Peak (ms) O-P Amp (?V) Norm O-P Amp Site1 Site2 Delta-0 (ms) Dist (cm) Carlos (m/s) Norm Carlos (m/s) Left Median Anti Sensory (2nd Digit) Wrist ? 3.5 4.5 <3.6 33.2 >10 Wrist 2nd Digit 3.5 14.0 40 Right Median Anti Sensory (2nd Digit) Wrist ? 5.6 6.5 <3.6 11.0 >10 Wrist 2nd Digit 5.6 14.0 25 Right Radial Anti Sensory (Thumb) Forearm ? 1.3 2.3 <3.1 17.6 Forearm Thumb 1.3 0.0 Left Ulnar Anti Sensory (5th Digit) Wrist ? 2.3 3.2 <3.7 31.4 >15.0 Wrist 5th Digit 2.3 14.0 61 Right Ulnar Anti Sensory (5th Digit) Wrist ? 2.6 3.7 <3.7 18.3 >15.0 Wrist 5th Digit 2.6 14.0 54 Motor Summary Table ?Stim Site NR Onset (ms) Norm Onset (ms) O-P Amp (mV) Norm O-P Amp iAmp (mV) Amp (1st) (%) Site1 Site2 Delta-0 (ms) Dist (cm) Carlos (m/s) Norm Carlos (m/s) Left Median Motor (Abd Poll Brev) Wrist ? 4.8 <3.9 10.5 >4.5 12.4 100.0 Elbow Wrist 3.2 17.5 55 >45 Elbow ? 8.0 10.7 12.7 101.9 Right Median Motor (Abd Poll Brev) Wrist ? 5.9 <3.9 11.9 >4.5 13.7 100.0 Elbow Wrist 3.7 19.0 51 >45 Elbow ? 9.6 9.7 11.1 81.5 Left Ulnar Motor (Abd Dig Minimi) Wrist ? 2.9 <3.0 12.4 >5 14.6 100.0 B Elbow Wrist 2.8 15.0 54 >45 B Elbow ? 5.7 12.1 14.5 97.6 A Elbow B Elbow 1.9 10.0 53 >45 A Elbow ? 7.6 11.2 13.7 90.3 Right Ulnar Motor (Abd Dig Minimi) Wrist ? 3.0 <3.0 12.3 >5 14.7 100.0 B Elbow Wrist 2.9 17.0 59 >45 B Elbow ? 5.9 13.0 16.0 105.7 A Elbow B Elbow 1.8 10.0 56 >45 A Elbow ? 7.7 12.5 15.8 101.6 EMG ?Side Muscle Nerve Root Ins Act Fibs Psw Amp Dur Poly Recrt Int Pat Comment Right 1stDorInt Ulnar C8-T1 Nml Nml Nml Nml Nml 0 Nml Complete Right FlexCarRad Median C6-7 Nml Nml Nml Nml Nml 0 Nml Complete Right Biceps Musculocut C5-6 Nml Nml Nml Nml Nml 0 Nml Complete Right Triceps Radial C6-7-8 Nml Nml Nml Nml Nml 0 Nml Complete Right Deltoid Axillary C5-6 Nml Nml Nml Nml Nml 0 Nml Complete Left 1stDorInt Ulnar C8-T1 Nml Nml Nml Nml Nml 0 Nml Complete Left FlexCarRad Median C6-7 Nml Nml Nml Nml Nml 0 Nml Complete Left Biceps Musculocut C5-6 Nml Nml Nml Nml Nml 0 Nml Complete Left Triceps Radial C6-7-8 Nml Nml Nml Nml Nml 0 Nml Complete Left Deltoid Axillary C5-6 Nml Nml Nml Nml Nml 0 Nml Complete FINDINGS: Bilateral median motor nerves showed prolonged distal latency, normal amplitude and normal conduction velocity. Bilateral median sensory nerve showed prolonged peak latency. All other nerves tested were within normal. Concentric needle EMG was performed in selected muscles of the bilateral upper extremities. Study did not reveal signs of electric abnormalities as shown in the table below. IMPRESSION: 1. This is an abnormal study. 2. There is electrodiagnostic evidence for bilateral moderate-severe median neuropathy at the wrist, consistent with carpal tunnel syndrome. 3. There is no electrodiagnostic evidence for ulnar neuropathy, brachial plexopathy, or cervical radiculopathy. Thank you for your kind referral. Michela Narayanan MD, KRISTEN Board Certified, [place] Board of [employer] and Rehabilitation (ABPMR) Board Certified, [place] Board of Electrodiagnostic Medicine (ABEM) CODIN 12061 x 2 MTDD
== END 2023-07-18 09:26 | disposition home or self-care (01) ==
LOC: HO.NEURO 09:25
PROVIDERS: PCP Internal Medicine; Visit Provider Orthopaedic Surgery
DX: R20.0 Anesthesia of skin (principal); R20.2 Paresthesia of skin
CPT/HCPCS: 95886; 95911

== ENCOUNTER → 2023-07-18 09:27 | Outpatient (BNV) | payer OTHER, SELFPAY | PROVIDERS: PCP Internal Medicine; Visit Provider Physical Medicine & Rehabilitation | DX: G56.13 Other lesions of median nerve, bilateral upper limbs (principal); G56.03 Carpal tunnel syndrome, bilateral upper limbs | CPT/HCPCS: 95886; 95911 ==

== ENCOUNTER 2023-10-07 16:41 | Outpatient (REF) | payer OTHER, SELFPAY ==
--- NOTE | ~2023-10-07 | XR_ITS ---
EXAMINATION: XR ABDOMEN KUB CLINICAL INDICATION: Rule out renal stones COMPARISON: None available. TECHNIQUE: AP view of the abdomen. FINDINGS: The bowel gas pattern is normal with no evidence of ileus or obstruction. No unusual soft tissue calcifications are noted. The bones are unremarkable. XR/XR KUB IMPRESSION: Unremarkable examination.
== END 2023-10-07 16:42 | disposition home or self-care (01) ==
LOC: HO.XRAY 16:41
PROVIDERS: PCP Internal Medicine; Visit Provider Nurse Practitioner Family
DX: Z13.9 Encounter for screening, unspecified (principal)
CPT/HCPCS: 74018

== ENCOUNTER 2023-10-13 14:27 | Outpatient (AMB) | payer OTHER, SELFPAY ==
--- NOTE | 2023-10-13 14:31 | A.OFFVIS_ITS ---
Intake Vital Signs 10/13/23 14:36 Height 5 ft 2 in Weight 138 lb BMI 25.2 BP 109/67 Blood Pressure Location Lt brachial Position Sitting Pulse 67 Intake Visit Reasons: PT wants to discuss getting meds Intake Note: Patient follow up for GERD. Patient cc: GERD if she does not take med, gassy, abdominal pain with bloating, Nauseas, med is helping little bite with constipation. Trekking Guide Required: No Accompanied by: Self / Same As Patient Allergies oxycodone [From PERCOCET] Adverse Reaction (Unknown, Verified 10/13/23 14:31) NAUSEA & VOMITING Medication List - Last Reconciled 10/13/23 by Izzy Torres PA-C atorvastatin 20 mg PO DAILY blood-glucose meter (LinkoveryStyle Lite Meter kit) As directed chlorthalidone 25 mg PO QAM cholecalciferol (vitamin D3) 2,000 units PO DAILY 3 months clonazepam 0.5 mg PO BEDTIME fenofibrate micronized 134 mg PO DAILY flash glucose scanning reader (LinkoveryStyle Chloé 2 Coffeen) As directed flash glucose sensor (FreeStyle Chloé 2 Sensor kit) As directed every 2 weeks levothyroxine 112 mcg PO QAM lisinopril 2.5 mg PO DAILY omeprazole 40 mg PO DAILY PRN sitagliptin phosphate (Januvia) 100 mg PO DAILY venlafaxine ER 37.5 mg PO DAILY HPI HPI Comments History of Present Illness Details A 53 y/o female- last seen 2020 here after an xray- showing backed up - she was taking stool softener- just started miralax-better she has acid reflux -EGD/colonoscopy- 2020- Dr. Saavedra- reviewed with pt- taking omeprazole 40 good response- here for refill- She is a smoker- occ etoh No N/V/ D abdominal pain PFSH Medical History (Updated 10/14/23 @ 11:04 by Izzy Torres PA-C) Heartburn Numbness and tingling in both hands Right medial knee pain Early menopause occurring in patient age younger than 45 years Menopausal vaginal dryness Low libido Hot flashes Vitamin D deficiency Gastritis Controlled diabetes mellitus type II without complication Superficial burn of right thigh De Quervain's tenosynovitis, left Lateral epicondylitis, right elbow Hot flashes due to menopause Gastroparesis Gastroparesis Plantar wart, left foot Epicondylitis Carpal tunnel syndrome DJD (degenerative joint disease) Essential hypertension Hyperlipidemia LDL goal <100 Postablative hypothyroidism Surgical History Hx of endoscopy Hx of colonoscopy Hx of mammogram Hx of foot surgery Hx of tubal ligation Hx of section Family History Father Diabetes CVD (cardiovascular disease) Stomach ulcer Mother Diabetes Colon polyps Dementia Family/Other Stomach cancer Social History Household Members: Spouse and Children Housing: House Alcohol intake: current Alcohol intake frequency: holidays/special occasions only Patient Tobacco Use Status: Current someday Tobacco user Tobacco use type: Cigarette e-Cigarette/Vaping Use: Currently Using Current occupational status: employed 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 Gender identity: Female Cognitive needs: No Hearing needs: No Vision needs: Yes Review of Systems Const All systems reviewed & are unremarkable except as noted in HPI and below Card Denies chest pain and Denies dyspnea Resp Denies dyspnea GI Denies abdominal pain, Reports constipation, Reports heartburn, Reports nausea (resolved ) and Denies vomiting Physical Exam Vital Signs: Last Vital Signs Pulse 67 10/13/23 14:36 BP 109/67 10/13/23 14:36 BMI result Body Mass Index 25.2 Const General: cooperative, healthy appearing, comfortable and no acute distress Orientation/consciousness: patient oriented x3 Limitations: no limitations Neuro General: patient oriented x3 Psych Appearance: grossly normal Mental Status: mental status grossly normal Speech and movement: Normal speech and movement present Affect: normal affect Attitude: cooperative Thought process: Normal thought process present Thought content: Normal thought content present Results Reviewed Results Reviewed: 03/2021- Impression and Post Procedure Diagnosis: Endoscopy Findings: ESOPHAGUS: Normal STOMACH: Mild gastritis Colonoscopy Findings: No polyps were detected. Random biopsies were obtained from colon to check for microscopic colitis Moderate diverticulosis seen in the sigmoid colon Plan: Await pathology results Patient to schedule a FU appointment in the GI Clinic with TORIE Tapia. Repeat Colonoscopy in 10? years if biopsies are normal Above findings were reviewed with the patient and GERD and diverticulosis handouts were given in the discharge area 3/5/23 XR/XR KUB IMPRESSION: Unremarkable examination. Name: Elizabeth Hendrix Age/Sex: 50/F Attending: Shira Saavedra MD : 1970 Submitted by: Shira Saavedra MD Copies to: Jonelle Prakash MD MR #: [id number] Status: [facility] Collected: 03/12/21 Location: [facility] Received: 03/12/21 Diagnosis A. Gastric, antrum, biopsies: Antral and corpus mucosa with mild chronic inactive gastritis; negative for intestinal metaplasia, dysplasia, carcinoma, and Helicobacter pylori. B. Colon, random, biopsies: Colonic mucosa within normal limits; negative for active and chronic colitis, microscopic colitis, granuloma formation, dysplasia, and carcinoma. Clinical History Pre-Op Dx: Screening, acid reflux Post-Op Dx: Gastritis, GERD, diverticulosis, r/o H. pylori, r/o microscopic colitis Microscopic Description Microscopic sections reviewed. Immunohistochemistry for Helicobacter pylori is negative (Part A). Material Received A: Gastric antrum bx's, r/o H. Pylori B: Random colon bx's, r/o microscopic colitis Gross Description Received in two parts. Part A: Received in formalin labeled Gastric antrum bx's are two glistening, semitranslucent, soft, lugo and lugo-pink, irregular and rectangular tissue fragments, measuring 0.3 and 0.4 cm. in greatest dimension, which are submitted in toto in a single cassette labeled A. Part B: Received in formalin labeled Random colon bx's are five glistening, semitranslucent, soft, hyperemic, lugo-pink, irregular and rectangular tissue fragments, ranging from 0.15 to 0.4 cm. in greatest dimension, which are submitted in toto in a single cassette labeled B. CEDS Special studies ordered and performed: Immunohistochemistry for Helicobacter pylori on Block A1. Copies To Jonelle Prakash MD [address] [place] [address] [place] [address] Patient: Elizabeth Hendrix Age/Sex: 50/F MR#: [id number] Page 1 of 2 Assessment & Plan Assessment & Plan (1) Acid reflux: Comment: omeprazole 20mg bid-EGD- reviewed Code(s): K21.9 - Gastro-esophageal reflux disease without esophagitis Plan: EGD reviewed-december/ pcp script refilled (2) Chronic constipation: Code(s): K59.09 - Other constipation Plan: consistent bowel regimen (3) Heartburn: Code(s): R12 - Heartburn Plan bowel regimen Medications: New docusate sodium (Colace) 200 mg (2 x 100 mg) PO BEDTIME 90 days 180 caps 4RF polyethylene glycol 3350 (Miralax) 17 grams PO DAILY 90 days 1,530 grams 4RF Patient Instructions: Consistent Bowel regimen Reflux precautions cont. ppi refill sent Coding Level of Care Code Est Pt Level 3 (62513) Diagnoses Acid reflux K21.9 Chronic constipation K59.09 Heartburn R12 Time Spent (min) 30
[2023-10-13 14:36] VITALS: BP 109/67; PULSE 67; BMI 25.2
== END 2023-10-13 15:47 | disposition home or self-care (01) ==
PROVIDERS: PCP Internal Medicine; Visit Provider Physician Assistant
DX: K21.9 Gastro-esophageal reflux disease without esophagitis (principal); K59.09 Other constipation; R12 Heartburn
CPT/HCPCS: 99213

== ENCOUNTER → 2023-10-13 14:27 | Outpatient (BNVA) | payer OTHER, SELFPAY | PROVIDERS: PCP Internal Medicine; Visit Provider Physician Assistant ==

== ENCOUNTER 2024-02-07 09:38 | Outpatient (AMB) | payer OTHER, SELFPAY ==
--- NOTE | 2024-02-07 09:40 | MHC.OFFWIV ---
Intake Vital Signs 02/07/24 09:41 Height 5 ft 2 in Weight 146 lb BMI 26.7 BP 110/66 Blood Pressure Location Lt brachial Position Sitting Pulse 67 Pulse Source Pulse Oximeter Temp 98.5 F Temp Source Oral Pulse Oximetry (%) 98 Oxygen Delivery Method Room Air Intake Visit Reasons: EP ??? rash/shingles back Intake Note: pt here c/o painful rash on back. ? shingles. Started 2 days ago Patient Tobacco Use Status: Former Tobacco user Allergies oxycodone [From PERCOCET] Adverse Reaction (Unknown, Verified 02/07/24 09:40) NAUSEA & VOMITING Do you need a note to return to daycare/school/sports/work: No HPI EP ??? rash/shingles back HPI Details Patient is a 53-year-old female with a history of diabetes, hypothyroidism, vitamin-D deficiency, and other comorbidities. She comes to the walk-in complaining a few days of painful rash on her back, for which she is questioning shingles. She reports that symptoms began 2 days ago, before any lesions were apparent to her right periscapular area. Lesions erupted soon after, and are tender and burning. She denies fever chills, headaches, dizziness, weakness, myalgias malaise, or other significant associated symptoms. No weakness to the right , no neck pain, and no other lesions. [facility] Medical History Heartburn Numbness and tingling in both hands Right medial knee pain Early menopause occurring in patient age younger than 45 years Menopausal vaginal dryness Low libido Hot flashes Vitamin D deficiency Gastritis Controlled diabetes mellitus type II without complication Superficial burn of right thigh De Quervain's tenosynovitis, left Lateral epicondylitis, right elbow Hot flashes due to menopause Gastroparesis Gastroparesis Plantar wart, left foot Epicondylitis Carpal tunnel syndrome DJD (degenerative joint disease) Essential hypertension Hyperlipidemia LDL goal <100 Postablative hypothyroidism Surgical History Hx of endoscopy Hx of colonoscopy Hx of mammogram Hx of foot surgery Hx of tubal ligation Hx of section Family History Father Diabetes CVD (cardiovascular disease) Stomach ulcer Mother Diabetes Colon polyps Dementia Family/Other Stomach cancer Social History Household Members: Spouse and Children Housing: House Alcohol intake: current Alcohol intake frequency: holidays/special occasions only Patient Tobacco Use Status: Former Tobacco user Tobacco use type: Cigarette e-Cigarette/Vaping Use: Currently Using Current occupational status: employed 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 No surrounding edema erythema or warmth. It does not cross the midline to the left side Assessment & Plan Assessment & Plan (1) Shingles: Code(s): B02.9 - Zoster without complications Qualifiers: Herpes zoster complications: without complications Qualified Code(s): B02.9 - Zoster without complications Plan: Patient is a 53-year-old female with controlled diabetes as well as hypothyroidism and other comorbidities, who appears to have acute herpes zoster without current complications. She is only 2 days in, and due to immunocompromised condition due to diabetes, is a good candidate for antiviral treatment. We discussed valacyclovir, and I wrote this course for her. I also wrote her for gabapentin to use for could for nerve pain as needed. She knows not to drive or do safety sensitive work while taking. We also discussed measures to prevent spreading infection, specifically to her new grandson. She knows to wait until the lesions have crusted over before considering any contact. She will keep the area covered at all times until the lesions heal. 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 We discussed following up with primary care as planned in a few weeks, to consider shingles vaccine when it is indicated, as this could decrease her risk of another outbreak, or post herpetic neuralgia. Medications: New valacyclovir 1,000 mg PO TID 21 tabs 0RF shingles 7 days gabapentin can cause drowsiness. Do not drive while taking 100 mg PO TID 40 caps 0RF nerve pain Coding Level of Care Code Est Pt Level 4 (90088) Diagnoses Herpes zoster without complication B02.9 Herpes zoster complications: without complications
[2024-02-07 09:41] VITALS: BP 110/66; PULSE 67; TEMP 36.9; O2SAT 98; BMI 26.7
== END 2024-02-07 10:51 | disposition home or self-care (01) ==
PROVIDERS: PCP Internal Medicine; Visit Provider Physician Assistant Medical
DX: B02.9 Zoster without complications (principal)
CPT/HCPCS: 99051; 99214

== ENCOUNTER 2024-02-18 12:00 | Outpatient (AMB) | payer OTHER, SELFPAY ==
--- NOTE | 2024-02-18 12:09 | MHC.PC.OV ---
Vital Signs 02/18/24 12:12 Height 5 ft 2 in Weight 148 lb BMI 27.1 BP 92/62 Blood Pressure Location Lt brachial Position Sitting Pulse 61 Pulse Source Pulse Oximeter Pulse Oximetry (%) 98 Oxygen Delivery Method Room Air Intake Visit Reasons: PE Intake Note: Pt is here today for her PE: Lasrt mammogram 04/28/23, papsmear 03/12/22 Allergies oxycodone [From PERCOCET] Adverse Reaction (Unknown, Verified 02/18/24 12:33) NAUSEA & VOMITING Medication List - Last Reconciled 02/18/24 by Jonelle Prakash MD atorvastatin 20 mg PO DAILY blood-glucose sensor (Topix G7 Sensor device) Test blood sugar 4 times per day, change sensor every 10 days chlorthalidone 25 mg PO QAM clonazepam 0.5 mg PO BEDTIME docusate sodium (Colace) 200 mg (2 x 100 mg) PO BEDTIME 90 days fenofibrate micronized 134 mg PO DAILY gabapentin 100 mg PO TID levothyroxine 112 mcg PO QAM lisinopril 2.5 mg PO DAILY omeprazole 40 mg PO DAILY PRN polyethylene glycol 3350 (Miralax) 17 grams PO DAILY 90 days sitagliptin phosphate (Januvia) 100 mg PO DAILY tramadol 50 mg PO BID PRN valacyclovir 1,000 mg PO TID 7 days venlafaxine ER 37.5 mg PO DAILY Tobacco use date assessed: 02/18/24 Dental Screening Dental Screen Date: 02/18/24 Did you have a dental visit in the last 12 months?: Yes Did you have a dental problem in the last 6 months where you did not have access to dental care?: No Was dental information given to patient?: Patient has dentist HPI PE HPI Details 53-year-old lady here today for physical exam. She is up-to-date with her screening mammogram, last done 04/28/23, and she had cervical cancer screening with last [place]apsmear done 03/12/22 [place] [facility] and is up-to-date with her screening colonoscopy done by Dr. Saavedra in 2020 with negative findings, due again in 2030. Recently had shingles, right upper back, completed Valtrex and is currently on gabapentin 100 mg at bedtime takes an occasional tramadol for pain. [facility] Medical History (Updated 02/21/24 @ 02:05 by Jonelle Prakash MD) Herpes zoster Heartburn Numbness and tingling in both hands Right medial knee pain Early menopause occurring in patient age younger than 45 years Menopausal vaginal dryness Low libido Hot flashes Vitamin D deficiency Gastritis Controlled diabetes mellitus type II without complication Superficial burn of right thigh De Quervain's tenosynovitis, left Lateral epicondylitis, right elbow Hot flashes due to menopause Gastroparesis Gastroparesis Plantar wart, left foot Epicondylitis Carpal tunnel syndrome DJD (degenerative joint disease) Essential hypertension Hyperlipidemia LDL goal <100 Postablative hypothyroidism Surgical History Hx of endoscopy Hx of colonoscopy Hx of mammogram Hx of foot surgery Hx of tubal ligation Hx of section Family History Father Diabetes CVD (cardiovascular disease) Stomach ulcer Mother Diabetes Colon polyps Dementia Family/Other Stomach cancer Social History Household Members: Spouse and Children Housing: House Alcohol intake: current Alcohol intake frequency: holidays/special occasions only Patient Tobacco Use Status: Former Tobacco user Tobacco use type: Cigarette e-Cigarette/Vaping Use: Currently Using Current occupational status: employed 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 1. Little interest or pleasure in doing things: not at all 2. Feeling down, depressed, or hopeless: several days 3. Trouble falling or staying asleep, or sleeping too much: several days 4. Feeling tired or having little energy: more than half the days (Recently diagnosed with herpes zoster) 5. Poor appetite or overeating: not at all 6. Feeling bad about yourself - or that you are a failure or have let yourself or your family down: not at all 7. Trouble concentrating on things, such as reading the newspaper or watching television: not at all 8. Moving or speaking so slowly that other people could have noticed. Or the opposite - being so fidgety or restless that you have been moving around a lot more than usual: not at all 9. Thoughts that you would be better off or of hurting yourself in some way: not at all Total score: 4 Depression Screening Interpretation: Positive (Controlled on present treatment) Depression Screening Follow-up: Existing condition and In treatment Depression Screening Done: Yes Source: Developed by Drs. Vladimir Carlson, Kady Pardo, Deven Victoria and colleagues, with an educational skye from [employer]. Thrive Questionnaire Date Thrive assessed: 11/27/22 I am a: Patient What is your living situation today?: I have a steady place to live Within the past 12 months, did the food you bought not last and you didn't have the money to get more?: Never true Within the past 12 months, did you worry whether your food would run out before you got money to buy more?: Never true Do you have trouble paying for medicines?: No Do you have trouble getting transportation to medical appointments?: No Do you have trouble paying your heating and electricity bill?: No Do you have trouble taking care of your child, family member or friend?: No Do you have trouble with day-to-day activities such as bathing, preparing meals, shopping, managing finances, etc.?: No Are you currently unemployed and looking for a job?: No Are you interested in more education?: No Please select the resources that you would like help with: Housing/Usp Currently or been in a relationship where the following occur: No concerns reported THRIVE Score: 0 AUDIT C Alcohol Use Questionnaire (AUDIT-C) 1. How often do you have a drink containing alcohol?: Monthly or less 2. How many drinks containing alcohol do you have on a typical day when you are drinking?: 3 or 4 3. How often do you have six or more drinks on one occasion?: Never Total Score: 2 FIDELINA-7 AMB Questionnaire FIDELINA-7 Date FIDELINA - 7 assessed: 11/27/22 Feeling nervous, anxious, or on edge: 1 = Several days Not being able to stop or control worryin = Not at all Worrying too much about different things: 1 = Several days Trouble relaxin = Several days Being so restless that it is hard to sit still: 0 = Not at all Becoming easily annoyed or irritable: 1 = Several days Feeling afraid as if something awful might happen: 0 = Not at all Total FIDELINA-7 score (0-4 normal; 5-9 mild; 10-14 moderate; 15-21 severe): 4 Source: Developed by Drs. Vladimir Carlson, Kady Pardo, Deven Victoria and colleagues, with an educational skye from [employer]. FIDELINA-7 Assessment Billing FIDELINA-7 Assessment Tool: FIDELINA-7 Assessment 89388 Review of Systems Const Denies headache(s) Eyes Details: Currently sees Dr. Chowdary Denies blurry vision ENT Denies headache(s), Denies nasal congestion and Denies sore throat Card Denies chest pain, Denies irregular heart rhythm, Denies palpitations and Denies dyspnea Resp Denies cough and Denies dyspnea GI Denies abdominal pain, Denies change in bowel habits and Denies heartburn Reports no additional complaints Musc Details: Aching pain in right mid back Reports tingling Skin/Breast Details: Rash on right mid back from herpes zoster Denies breast pain and Denies breast mass Neuro Denies headache(s), Denies radicular pain, Reports tingling and Reports paresthesias (Right mid back) Psych Reports no additional complaints Endo Denies palpitations Shimon/Lymph Denies easy bruising Aller/Immun Reports no additional complaints Physical exam (Primary Care) Vital Signs: Last Vital Signs Pulse 61 02/18/24 12:12 BP 92/62 02/18/24 12:12 Pulse Ox 98 02/18/24 12:12 Oxygen Delivery Method Room Air 02/18/24 12:12 BMI result Body Mass Index 27.1 Tobacco/Smoking Status: Tobacco use Status Tobacco use date assessed 02/18/24 02/18/24 12:18 Patient Tobacco Use Status Former Tobacco user 02/18/24 12:11 Tobacco use type Cigarette 02/18/24 12:11 e-Cigarette/Vaping Use Currently Using 02/18/24 12:11 PHQ-9: PHQ-9 Score PHQ-9: Total score 4 02/19/24 17:45 Depression Screening Interpretation: Positive (Controlled on present treatment) Depression Screening Follow-up: Existing condition and In treatment Thrive Assessment: Date of Thrive Assessment Date Thrive assessed 11/27/22 02/18/24 12:11 Currently or been in a relationship where the following occur: No concerns reported Advance Care Planning discussion: Completed/Scanned Date of discussion: 02/18/24 Who was present: Patient Forms completed: Health Care Proxy Time spent: 16-45 minutes Actual minutes spent: 16 Const General: cooperative, comfortable and no acute distress Orientation/consciousness: patient oriented x3 HENMT Mouth: Normal oral and palatal mucosa present, oropharynx normal and moist mucous membranes Eyes Pupils: Equal, round and reactive pupils present Neck Neck: Yes full ROM, Yes no lymphadenopathy and Yes supple Chest Breast/axilla inspection: normal inspection of the breasts Breast/axilla palpation: normal palpation of the breasts Resp Effort & Inspection: normal respiratory effort and able to speak in complete sentences Auscultation: clear to auscultation bilaterally Cardio Rate: regular rate Rhythm: regular rhythm Heart sounds: S1 normal heart sound present and S2 normal heart sound present GI Inspection: Yes normal to inspection Palpation (GI): Soft to palpation, nontender and no masses Auscultation: normal bowel sounds General: Yes no CVA tenderness and Yes deferred (Sees [facility] [place]) Back/Spine/Pelvis Back: no CVA tenderness and No back tenderness Skin Other: Erythematous papular rash on right upper mid back, does not cross midline Neuro General: patient oriented x3, gait normal, tone normal, moves all extremities, Normal light touch and pain sensation and no focal motor deficits Cranial nerves: Yes Equal, round and reactive pupils present Cognition (Neuro): normal cognition Gait exam (Neuro): Normal gait present Motor exam (neuro): 5/5 motor strength present throughout Extrem General: Yes full ROM, Yes no joint enlargement, Yes no clubbing, cyanosis or edema and Yes normal gait Psych Appearance: grossly normal and well kempt Mental Status: mental status grossly normal Speech and movement: Normal speech and movement present Affect: normal affect Attitude: cooperative Thought process: Normal thought process present Thought content: Normal thought content present Results AMB Hemoglobin A1c AMB Hemoglobin A1c 5.9 % Last Edit by Sara Myles CMA on 02/18/24 12:31 Results Reviewed Results Reviewed: Laboratory Last Values Hgb A1c (Clinic) 5.9 % (4.0-6.0) 02/18/24 12:30 Assessment and Plan Assessment & Plan (1) Annual visit for general adult medical examination with abnormal findings: Code(s): Z00.01 - Encounter for general adult medical examination with abnormal findings Plan: Reminded to get fasting labs done. Already ordered continue regular dental visit every 6 months and regular eye exams, goes to Dr. Chowdary yearly. Take adequate calcium in diet and vitamin-D 3 at 2000 IU per cap once a day, in addition to weight-bearing exercises to help maintain good muscle tone and weight control. Instructed to do self-breast exam, and continue to get yearly mammogram, currently up-to-date. Cancer screening up-to-date as well as screening colonoscopy. Has had COVID vaccines, needs booster, reminded to get yearly flu shot, up-to-date with her pneumonia vaccine and Tdap patient also advised to get her shingles vaccine 3 months after resolution of her current shingles outbreak. (2) Controlled diabetes mellitus type II without complication: Code(s): E11.9 - Type 2 diabetes mellitus without complications Plan: Diabetes mellitus well controlled on sitagliptin 100 mg taken once a day. Latest hemoglobin A1c is at 5.9% , currently sees Dr. Chowdary for routine diabetes retinopathy screening (3) Essential hypertension: Code(s): I10 - Essential (primary) hypertension Plan: Blood pressure at goal of less than 130/80. Continue lisinopril 2.5 mg daily and chlorthalidone 25 mg daily in a.m. Reinforced importance of following a low sodium diet, getting regular exercise, and lowering stress levels. (4) Hyperlipidemia LDL goal <100: Code(s): E78.5 - Hyperlipidemia, unspecified Plan: Currently taking atorvastatin 20 mg daily and fenofibrate 134 mg daily, reminded to get fasting labs done, already ordered. (5) Postablative hypothyroidism: Code(s): E89.0 - Postprocedural hypothyroidism Plan: Continued on levothyroxine 112 mcg daily in a.m., reminded to get her fasting thyroid levels done, already ordered (6) Herpes zoster: Code(s): B02.9 - Zoster without complications Plan: Finished taking Valtrex, currently on gabapentin 100 mg per tablet p.o. t.i.d. will extend work note until 02/27/2024 (7) Advanced directives, counseling/discussion: Code(s): Z71.89 - Other specified counseling Plan: Initiated the conversation about Advanced Directives. Advanced Directives help patients prepare for current and future decisions about their medical treatment and place of care. Discussed with patient that it is a process where a patients current condition and prognosis are reviewed, their wishes for information regarding their illness are elicited, and likely medical dilemmas are presented and options discussed. Healthcare proxy form completed today The form can be amended as needed, reviewed yearly and make changes as needed Orders: Orders Microalbumin, Random (w Creat) 02/18/24 E11.9 - Type 2 diabetes mellitus without complications AMB Hemoglobin A1c 02/18/24 E11.9 - Type 2 diabetes mellitus without complications Coding Level of Care Code Est Pt Prev Care 40-64y(88286) Diagnoses Annual visit for general adult medical examination with abnormal findings Z00.01 Controlled diabetes mellitus type II without complication E11.9 Essential hypertension I10 Hyperlipidemia LDL goal <100 E78.5 Postablative hypothyroidism E89.0 Herpes zoster B02.9 Advanced directives, counseling/discussion Z71.89 Additional Codes FIDELINA-7 Assessment Billing - FIDELINA-7 Assessment Tool: FIDELINA-7 Assessment 00842 ([id number]) Vital Signs *Quality* - Advance Care Planning discussion: Completed/Scanned ([id number]) Vital Signs *Quality* - Time spent: 16-45 minutes ([id number])
[2024-02-18 12:12] VITALS: BP 92/62; PULSE 61; O2SAT 98; BMI 27.1
== END 2024-02-18 16:24 | disposition home or self-care (01) ==
PROVIDERS: PCP Internal Medicine; Visit Provider Internal Medicine
DX: E11.9 Type 2 diabetes mellitus without complications (principal)
CPT/HCPCS: 1123F; 83036; 99396; 99497

== ENCOUNTER 2024-05-14 07:38 | Outpatient (REF) | payer OTHER, SELFPAY ==
--- NOTE | ~2024-05-14 | MM_ITS ---
EXAMINATION: MM SCREENING DIGITAL BREAST TOMOSYNTHESIS, BILATERAL CLINICAL INFORMATION: Screening. Asymptomatic. COMPARISON: Mammography: 04/28/2023, 04/26/2022, 04/24/2021, 10/23/2020, 04/28/2020, 04/27/2020 (BI-RADS 0). Left breast ultrasound 04/26/2022, 04/24/2021, 10/23/2020, 04/28/2020. TECHNIQUE: Digital breast tomosynthesis is performed in both the craniocaudal and mediolateral oblique views along with computer-aided detection (CAD). Synthesized 2D images are generated from the tomosynthesis. FINDINGS: There are scattered areas of fibroglandular density (ACR BI-RADS breast composition Category b). There are no suspicious masses, suspicious grouped calcifications, or areas of architectural distortion. The parenchymal pattern is stable from prior exams. There are similar scattered calcifications which are punctate in morphology bilaterally, without aggressive change, predominantly central and upper breasts.. Similar appearing oval mass at the 1:00 central left breast is no longer evident, and was a known benign cyst. It appears to have resolved. MM/MM tomosynthesis screening BI IMPRESSION: -No mammographic evidence of malignancy in either breast. Stable examination aside from the above. ASSESSMENT: BI-RADS BI-RADS 2 - Benign Findings RECOMMENDATION: Routine annual mammography screening. 1 year F/U This examination should not preclude the clinical evaluation of a suspicious palpable abnormality. This patient's information was entered into a reminder system with a target due date for their next mammogram. Electronically signed by: Anthony Hernández MD 05/18/2024 12:24 PM EDT
== END 2024-05-14 07:39 | disposition home or self-care (01) ==
LOC: HO.MAMMO 07:38
PROVIDERS: PCP Internal Medicine; Referring Provider Advanced Practice Midwife; Visit Provider Internal Medicine
DX: Z12.31 Encounter for screening mammogram for malignant neoplasm of breast (principal)
CPT/HCPCS: 77063; 77067

== ENCOUNTER → 2024-05-14 08:00 | Outpatient (BNV) | payer OTHER, SELFPAY | PROVIDERS: PCP Internal Medicine; Referring Provider Advanced Practice Midwife; Visit Provider Radiology Diagnostic Radiology | DX: Z12.31 Encounter for screening mammogram for malignant neoplasm of breast (principal) | CPT/HCPCS: 77063; 77067 ==

== ENCOUNTER 2025-01-04 15:33 | Outpatient (AMB) | payer OTHER, SELFPAY ==
--- NOTE | 2025-01-04 15:34 | MHC.OFFVIS ---
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 Currently not sexually active. Denies any vaginal dryness or irritation. STI testing offered; she declines. Attempting to eat a healthy diet with calcium and vitamin D and stays active with exercise. Last pap smear; 2021, negative. Last mammogram; 2023. Colonoscopy is UTD. Denies any family history of breast, ovarian or colon cancer. [facility] Medical History Herpes zoster Heartburn Numbness and tingling in both hands Right medial knee pain Early menopause occurring in patient age younger than 45 years Menopausal vaginal dryness Low libido Hot flashes Vitamin D deficiency Gastritis Controlled diabetes mellitus type II without complication Superficial burn of right thigh De Quervain's tenosynovitis, left Lateral epicondylitis, right elbow Hot flashes due to menopause Gastroparesis Gastroparesis Plantar wart, left foot Epicondylitis Carpal tunnel syndrome DJD (degenerative joint disease) Essential hypertension Hyperlipidemia LDL goal <100 Postablative hypothyroidism Surgical History Hx of endoscopy Hx of colonoscopy Hx of mammogram Hx of foot surgery Hx of tubal ligation Hx of section Family History Father Diabetes CVD (cardiovascular disease) Stomach ulcer Mother Diabetes Colon polyps Dementia Family/Other Stomach cancer Social History Household Members: Spouse and Children Housing: House Alcohol intake: current Alcohol intake frequency: holidays/special occasions only Patient Tobacco Use Status: Former Tobacco user Tobacco use type: Cigarette e-Cigarette/Vaping Use: Currently Using Current occupational status: employed 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 Gender identity: Female Cognitive needs: No Hearing needs: No Vision needs: Yes Female Reproductive History Menstrual control method: none Total pregnancies: 3 Full term: 3 Number of Living Children: 3 Date of last pap smear: 03/11/22 (NEGATIVE PAP SMEAR, NEGATIVE HPV ) History of abnormal pap smear: No Date of Mammogram: 05/14/24 (bi rad 2) Date of last Bone Density Screenin05/30/23 Review of Systems Const All systems reviewed & are unremarkable except as noted in HPI and below Reports as per HPI Eyes Reports no additional complaints ENT Reports no additional complaints Card Reports no additional complaints Resp Reports no additional complaints GI Reports as per HPI and Reports no additional complaints Reports as per HPI Musc Reports no additional complaints Skin/Breast Reports as per HPI Neuro Reports no additional complaints Psych Reports no additional complaints Endo Reports no additional complaints Shimon/Lymph Reports no additional complaints Aller/Immun Reports no additional complaints Physical Exam Vital Signs: Last Vital Signs BP 108/72 01/04/25 15:40 BMI result Body Mass Index 27.1 Const General: cooperative, healthy appearing, no acute distress, well developed and alert Orientation/consciousness: patient oriented x3 HEENT Head: Yes normal to inspection Eyes General: appearance normal, both eyes and all related structures Neck Neck: Yes normal visual inspection Thyroid: Thyroid normal Chest Chest palpation & inspection: normal inspection of the chest and other (no puckering, dimpling, peau de orange, retraction, discharge, masses) Breast/axilla inspection: normal inspection of the breasts Breast/axilla palpation: normal palpation of the breasts Resp Effort & Inspection: normal respiratory effort GI Inspection: Yes normal to inspection and Yes scar Palpation (GI): Soft to palpation Rectal Exam - Female: deferred Other: Bilateral labial tissue minimal no abnormal findings. General: Yes bladder normal to palpation External Female Exam: normal external appearance and normal appearance of the urethra Speculum Exam - Vagina: normal appearance of the vagina, normal palpation and normal vaginal discharge Speculum Exam - Cervix: normal appearance of the cervix and normal palpation Bimanual exam- vagina & uterus: normal bimanual exam, normal palpation, uterine size normal, bladder normal to palpation, normal palpation and non-tender Bimanual Exam- Adnexa, other: no masses Skin General skin exam: no rashes or lesions noted Rashes: no rashes Neuro General: patient oriented x3 Cognition (Neuro): normal cognition Extrem General: Yes normal to inspection Psych Attitude: cooperative Thought process: Normal thought process present Assessment & Plan Assessment & Plan (1) Encounter for well woman exam with routine gynecological exam: Code(s): Z01.419 - Encounter for gynecological examination (general) (routine) without abnormal findings Category: Medical Plan Discussed: Current recommendations for pap smears per ASCCP guidelines. Breast awareness, periodic self breast exams and yearly mammogram. Maintain a healthy lifestyle, well balanced diet including Calcium 1,200 mg and Vitamin D 600 IU daily, and routine exercise. Concerns for labial size, labia is healthy appearing not excessively enlarged, actually very small in size discuss risks benefits of Plastic surgery as there is no medical indication to have surgery for the labia reconstruction at this time, risk of scarring an pain with surgery. The patient expressed understanding and agreement with the plan of care. All of her questions and concerns were addressed to the best of my ability. Contact the office with any postmenopausal bleeding. Patient verbalizes understanding and agrees to the plan of care. She was given opportunity to ask questions and all questions were answered to the best of my ability. 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 This note is constructed using voice recognition software. While every effort has been made to ensure accuracy, type rolling machine operator errors may have been included. Coding Level of Care Code Est Pt Prev Care 40-64y(73526) Diagnoses Encounter for well woman exam with routine gynecological exam Z01.419
[2025-01-04 15:40] VITALS: BP 108/72; BMI 27.1
--- OUTSIDE RECORDS SUMMARY | 2025-01-04 16:55 | XMS_ITS | Patient Health Record ---
[facility] Organization [facility] Address [address] [place] [address] Care Team Providers Care Die Cast Supervisor Name Role Phone Olinda MOBLEY, Jonelle Chacon Primary Care Provider Un available Marissa James Unavailable [phone] Allergies Allergen (clinical drug ingredient) Drug/Non Drug Allergy documented on EMR Reaction Allergy Type Onset Date Status acetaminophen / oxycodone Percocet vomiting Drug Allergy Active Results Component Value Reference Range Notes HEMOGLOBIN A1C (GLYCOHEMOGLO BIN) Reviewed date:08/31/2024 02:24:58 PM Interpretation: Performing Lab: Notes/Report: HEMOGLOBIN A1C % (HH) 5.9 Reason For Referral No Information Medications Medication SIG (Take, Route, Frequency, Duration) Notes Start Date End Date Status Lisinopril 2.5 MG Oral for 90 Days Active Levothyroxine Sodium 112 MCG Oral for 90 Days Active ALPRAZolam 1 MG Oral for 3 Days Active clonazePAM 0.5 MG Oral for 10 Days PRN Active Fenofibrate Micronized 134 MG Oral for 90 Days Active Atorvastatin Calcium 20 MG Oral for 90 Days Active Venlafaxine HCl ER 37.5 MG Oral for 90 Days Active Januvia 100 MG Oral for 90 Days Active Susan Complex Acti ve Chlorthalidone 25 MG Oral for 90 Days Active Omeprazole 40 MG Oral for 82 Days Active Social History Tobacco Use: Social History Observation Description Date Details (start date - stop date) Never Smoker NA - NA Tobacco use other than smoking: Question Answer Notes Are you an other tobacco user? No Tobacco Control (Standard) Question Answer Notes Tobacco use: Nonsmoker Additional Findings: Tobacco non-user Current no nsmoker Problems Problem Type SNOMED Code ICD Code Onset Dates Problem Status W/U Status Risk Notes Problem Plantar wart (05737752) Plantar wart (B07.0) Active confirmed Problem 612380893 Type 2 diabetes mellitus without complication, without long-term current use of insulin (E11.9) Active confirmed Vital Signs Heart Rate 67 /min 08/31/2024 Blood pressure diastolic 75 mm Hg 11/17/2024 Height 5ft2in in 11/17/2024 Blood pressure systolic 117 mm Hg 11/17/2024 Weight 150 lbs 11/17/2024 BMI 27.43 kg/m2 11/17/2024 Encounters Encounter Location Date Provider Diagnosis [facility] [address] 08/31/2024 Marissa James Left foot pain M79.672 ; Plantar wart B07.0 and Type 2 diabetes mellitus without complication, without long-term current use of insulin E11.[facility] [address] 11/17/2024 Marissa James Left foot pain M79.672 ; Plantar wart B07.0 and Type 2 diabetes mellitus without complication, without long-term current use of insulin E11.9 [facility] [address] 08/18/2024 Marissa James Assessments Encounter Date Diagnosis (ICD Code) Assessment Notes Treatment Notes Treatment Clinical Notes Section Notes 08/31/2024 Left foot pain (ICD-10 - M79.672) 11/17/2024 Left foot pain (ICD-10 - M79.672) 08/31/2024 Type 2 diabetes mellitus without complication, without long-term current use of insulin (ICD-10 - E11.9) 11/17/2024 Plantar wart (ICD-10 - B07.0) 08/31/2024 Plantar wart (ICD-10 - B07.0) 11/17/2024 Type 2 diabetes mellitus without complication, without long-term current use of insulin (ICD-10 - E11.9) Plan Of Treatment No Information Insurance Providers Payer Name Payer Address Payer Phone Subscriber Number Group Number Insured Name Patient Relationship to Insured Coverage Start Date Coverage End Date [employer] [address] [address] [place] [address] [id number] Chalino Hendrix Spouse - patient is the spouse of the insured Medical (General) History Medical History History ICD Code Back,Hip,and Knee pain Broken bones CAD (Cholesterol) covid-19 Diabetes mellitus High Blood Pressure Reflux ( GERD) thyroid Chicken pox Surgical History Surgery Date(Month/Year) 06/27/92,09/09/98 Plantar Wart 08/2020 Lipo & Abdominoplasty 04/30/24
== END 2025-01-04 16:01 | disposition home or self-care (01) ==
LOC: HO.HWS 15:34
PROVIDERS: PCP Internal Medicine; Visit Provider Advanced Practice Midwife
DX: Z01.419 Encounter for gynecological examination (general) (routine) without abnormal findings (principal)
CPT/HCPCS: 99396; 99459

== ENCOUNTER → 2025-01-04 15:33 | Outpatient (BNVA) | payer OTHER, SELFPAY | PROVIDERS: PCP Internal Medicine; Visit Provider Advanced Practice Midwife ==

== ENCOUNTER 2025-01-29 09:18 | Outpatient (REF) | payer OTHER, SELFPAY ==
[2025-01-29 10:23] LABS: Estimated Average Glucose 140 mg/dL; Hemoglobin A1c % 6.5 % (<6.0); Total Hemoglobin (HGBA1C) 3841.5296 umol/L
[2025-01-29 11:03] LABS: Alanine Aminotransferase 32 U/L (0-31); Anion Gap 13 (12-20); Aspartate Amino Transferase 23 U/L (5-31); Blood Urea Nitrogen 24 mg/dL (9-16); Calcium 9.5 mg/dL (8.4-10.2); Carbon Dioxide 26 mmol/L (22-29); Chloride 104 mmol/L (96-108); Cholesterol 163 mg/dL (<200); Estimated Glomerular Filt Rate > 60; Glucose Fasting 140 mg/dL (60-99); HDL Cholesterol 54 mg/dL (>40); LDL Cholesterol Calculated 79 mg/dL (<100); Potassium 3.7 mmol/L (3.3-5.1); Sodium 139 mmol/L (135-145); Triglycerides 153 mg/dL (<150)
[2025-01-29 11:15] LABS: Free T4 (Free Thyroxine) 0.99 ng/dL (0.71-1.85); Thyroid Stimulating Hormone 3.06 uIU/mL (0.32-4.0)
[2025-01-29 12:03] LABS: Microalbum/Creatinine Ratio Ur 19.2 ug/mg cr (<30)
== END 2025-01-29 09:19 | disposition home or self-care (01) ==
LOC: HO.LAB 09:18
PROVIDERS: PCP Internal Medicine; Visit Provider Internal Medicine
DX: E11.9 Type 2 diabetes mellitus without complications (principal); I10 Essential (primary) hypertension; E89.0 Postprocedural hypothyroidism; E78.5 Hyperlipidemia, unspecified
CPT/HCPCS: 36415; 80048; 80061; 82043; 82570; 83036; 84439; 84443; 84450; 84460

== ENCOUNTER 2025-02-11 09:40 | Outpatient (AMB) | payer OTHER, SELFPAY ==
--- NOTE | 2025-02-11 09:36 | A.OFFPC_ITS ---
Intake Visit Reasons: diabetes Intake Note: Pt is having a teleheath to f/u DM Allergies oxycodone (From PERCOCET) Adverse Reaction (Unknown, Verified 02/11/25 10:02) NAUSEA & VOMITING Medication List - Last Reconciled 02/11/25 by Jonelle Prakash MD atorvastatin 20 mg PO DAILY blood-glucose sensor (Dexcom G7 Sensor device) Test blood sugar 4 times per day, change sensor every 10 days chlorthalidone 25 mg PO QAM clonazepam 0.5 mg PO BEDTIME docusate sodium (Colace) 200 mg (2 x 100 mg) PO BEDTIME 90 days fenofibrate micronized 134 mg PO DAILY levothyroxine 112 mcg PO QAM lisinopril 2.5 mg PO DAILY omeprazole 40 mg PO DAILY PRN polyethylene glycol 3350 (Miralax) 17 grams PO DAILY 90 days sitagliptin phosphate (Januvia) 100 mg PO DAILY venlafaxine ER 37.5 mg PO DAILY Tobacco use date assessed: 02/11/25 Dental Screening Dental Screen Date: 02/11/25 Did you have a dental visit in the last 12 months?: Yes Did you have a dental problem in the last 6 months where you did not have access to dental care?: No Was dental information given to patient?: Patient has dentist HPI diabetes HPI Details Elizabeth is a 54-year-old lady here today for follow-up on her diabetes mellitus. Currently taking Januvia 100 mg daily, compliant with taking her medi cations, but hemoglobin A1c is starting to creep up again now at 6.5%. She sees Dr. Chowdary for her routine eye exam. She is also here for follow-up on her thyroid levels and lipids. Latest fasting labs done showed thyroid levels and cholesterol levels are within normal limits. Currently going through divorce and would like to see if she can get another refill on her clonazepam which she uses only as needed [facility] Medical History Diabetes mellitus, without long-term current use of insulin Herpes zoster Heartburn Numbness and tingling in both hands Right medial knee pain Early menopause occurring in patient age younger than 45 years Menopausal vaginal dryness Low libido Hot flashes Vitamin D deficiency Gastritis Superficial burn of right thigh De Quervain's tenosynovitis, left Lateral epicondylitis, right elbow Hot flashes due to menopause Gastroparesis Gastroparesis Plantar wart, left foot Epicondylitis Carpal tunnel syndrome DJD (degenerative joint disease) Essential hypertension Hyperlipidemia LDL goal <100 Postablative hypothyroidism Surgical History Hx of endoscopy Hx of colonoscopy Hx of mammogram Hx of foot surgery Hx of tubal ligation Hx of section Family History Father Diabetes CVD (cardiovascular disease) Stomach ulcer Mother Diabetes Colon polyps Dementia Family/Other Stomach cancer Social History Household Members: Spouse and Children Housing: House Alcohol intake: current Alcohol intake frequency: holidays/special occasions only Patient Tobacco Use Status: Former Tobacco user Tobacco use type: Cigarette e-Cigarette/Vaping Use: Currently Using Current occupational status: employed 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 1. Little interest or pleasure in doing things: not at all 2. Feeling down, depressed, or hopeless: several days 3. Trouble falling or staying asleep, or sleeping too much: not at all 4. Feeling tired or having little energy: not at all 5. Poor appetite or overeating: several days 6. Feeling bad about yourself - or that you are a failure or have let yourself or your family down: not at all 7. Trouble concentrating on things, such as reading the newspaper or watching television: not at all 8. Moving or speaking so slowly that other people could have noticed. Or the opposite - being so fidgety or restless that you have been moving around a lot more than usual: not at all 9. Thoughts that you would be better off or of hurting yourself in some way: not at all Total score: 2 Depression Screening Interpretation: Negative Depression Screening Done: Yes 42499 - PHQ-9 Billing: Yes Source: Developed by Drs. Vladimir Carlson, Deven Pedroza and colleagues, with an educational skye from [employer]. Thrive Questionnaire Date Thrive assessed: 02/11/25 I am a: Patient What is your living situation today?: I have a steady place to live Within the past 12 months, did the food you bought not last and you didn't have the money to get more?: Never true Within the past 12 months, did you worry whether your food would run out before you got money to buy more?: Never true Do you have trouble paying for medicines?: No Do you have trouble getting transportation to medical appointments?: No Do you have trouble paying your heating and electricity bill?: No Do you have trouble taking care of your child, family member or friend?: No Do you have trouble with day-to-day activities such as bathing, preparing meals, shopping, managing finances, etc.?: No Are you currently unemployed and looking for a job?: No Are you interested in more education?: No Please select the resources that you would like help with: None Currently or been in a relationship where the following occur: No concerns rep orted THRIVE Score: 0 AUDIT C Alcohol Use Questionnaire (AUDIT-C) 2. How many drinks containing alcohol do you have on a typical day when you are drinking?: 1 or 2 3. How often do you have six or more drinks on one occasion?: Less than monthly Total Score: 1 FIDELINA-7 AMB Questionnaire FIDELINA-7 Date FIDELINA - 7 assessed: 02/11/25 Feeling nervous, anxious, or on edge: 1 = Several days Not being able to stop or control worryin = Not at all Worrying too much about different things: 1 = Several days Trouble relaxin = Several days Being so restless that it is hard to sit still: 0 = Not at all Becoming easily annoyed or irritable: 1 = Several days Feeling afraid as if something awful might happen: 0 = Not at all Total FIDELINA-7 score (0-4 normal; 5-9 mild; 10-14 moderate; 15-21 severe): 4 Source: Developed by Drs. Vladimir Carlson, Deven Pedroza and colleagues, with an educational skye from [employer]. FIDELINA-7 Assessment Billing FIDELINA-7 Assessment Tool: FIDELINA-7 Assessment 26629 Review of Systems Const All systems reviewed & are unremarkable except as noted in HPI and below Reports as per HPI Eyes Details: Currently sees Dr. Chowdary Reports no additional complaints ENT Reports no additional complaints Card Reports no additional complaints Resp Reports no additional complaints GI Reports no additional complaints Reports as per HPI Musc Reports no additional complaints Skin/Breast Details: r Neuro Reports no additional complaints Psych Reports no additional complaints Endo Reports no additional complaints Shimon/Lymph Reports no additional complaints Aller/Immun Reports no additional complaints Physical exam (Primary Care) Tobacco/Smoking Status: Tobacco use Status Tobacco use date assessed 02/11/25 02/11/25 09:38 Patient Tobacco Use Status Former Tobacco user 02/11/25 09:38 Tobacco use type Cigarette 02/11/25 09:38 e-Cigarette/Vaping Use Currently Using 02/11/25 09:38 PHQ-9: PHQ-9 Score PHQ-9: Total score 2 02/11/25 10:04 Depression Screening Interpretation: Negative Thrive Assessment: Date of Thrive Assessment Date Thrive assessed 02/11/25 02/11/25 09:40 Currently or been in a relationship where the following occur: No concerns reported Telehealth Telehealth Telehealth [facility] Location of provider rendering services: practice address Location of patient: address on file Patient Identification confirmed using: Name, : Yes Telehealth method: video Patient verbally consented to treatment: Yes Patient verbally consented to billing insurance company: Yes Patient informed of any privacy concerns related to visit: Yes Minutes spent on Phone/Video with Pt.: 15 Results Reviewed Results Reviewed: RUN: 02/11/25 1001 PAGE 1 [facility] [address] [place] [id number] Sales Engineering Manager: Maxi Busots M.D. Specimen Inquiry Name: RumaElizabeth Age/Sex: 54/F : 1970 Unit#: [id number] Attend Dr: Jonelle Prakash MD Re01/29/25 Status: DEP REF Location: .LAB Disch: SPEC : [id number] [place]: 01/29/25 STATUS: COMP REQ : [id number] RECD: 01/29/[address]: Jonelle Prakash MD COMP: 01/29/25 ENTERED: 01/29/[address] [facility] [address]: ORDERED: Met Prof Fast, AST, ALT, Lipid Panel, Free T4, TSH Test Result Flag Reference Sodium 139 135-145 mmol/L Potassium 3.7 3.3-5.1 mmol/L CL 104 96-108 mmol/L CO2 26 22-29 mmol/L Gap 13 12-20 BUN 24 H 9-16 mg/dL Creat 0.74 0.5-1.4 mg/dL eGFR > 60 Chronic Kidney Disease: Estimated GFR < 60 mL/min /1.73m2 Severe Kidney Disease: Estimated GFR < 15 mL/min/1.73m2 FBS 140 H 60-99 mg/dL A fasting glucose of 126 mg/dl or greater on more than one occasion is considered diagnostic of diabetes. CA 9.5 8.4-10.2 mg/dL AST (GOT) 23 5-31 U/L ALT (GPT) 32 H 0-31 U/L Triglyceride 153 H <150 mg/dL Desirable Triglyceride: less than 150 mg/dL Borderline High Triglyceride 150-199 mg/dL High Triglyceride: 200-499 mg/dL Very High Triglyceride: greater than or equal to 5OO mg/dL Cholesterol 163 <200 mg/dL Desirable Cholesterol: less than 200 mg/dL Borderline High Cholesterol: 200-239 mg/dL High Cholesterol: greater than 239 mg/dL LDL Calculated 79 <100 mg/dL Desirable LDL: less than 100 mg/dL Near Optimal/Above Optimal LDL: 110-129 mg/dL Borderline High LDL: 130-159 mg/dL High LDL: 160-189 mg/dL Very High LDL: greater than or equal to 190 mg/dL HDL 54 >40 mg/dL Desirable HDL: greater than 40 mg/dL Note: This HDL assay may give artificially low results in patients with liver disease. Free T4 0.99 0.71-1.85 ng/dL TSH 3rd Gen. 3.06 0.32-4.0 uIU/mL Note: A sustained TSH level above 2.5 uIU/mL may warrant further investigation. TSH 3rd Generation ([facility]) Laboratory Tests 01/29/25 09:36 Estimat Average Glucose 140 Hemoglobin A1c % 6.5 H Coding Level of Care Code Tele Est Pt Level 4 (02860) Diagnoses Postablative hypothyroidism E89.0 Hyperlipidemia LDL goal <100 E78.5 Diabetes mellitus, without long-term current use of insulin E11.9 Anxiety in acute stress reaction F41.1; F43.0 Additional Codes FIDELINA-7 Assessment Billing - FIDELINA-7 Assessment Tool: FIDELINA-7 Assessment 36837 ([id number]) PHQ-9 - 45674 - PHQ-9 Billing: Yes ([id number]) Time Spent (min) 20 Assessment & Plan Assessment & Plan (1) Postablative hypothyroidism: Code(s): E89.0 - Postprocedural hypothyroidism Category: Medical Plan: Asymptomatic, will continue to monitor (2) Hyperlipidemia LDL goal <100: Code(s): E78.5 - Hyperlipidemia, unspecified Category: Medical Plan: Fasting lipids are within normal limits except for some slight elevation in her triglycerides. Continue with atorvastatin 20 mg daily, and reinforced importance of following low-cholesterol diet and getting at least 30 minutes of moderate intensity exercise 3 to 4 times a week. (3) Diabetes mellitus, without long-term current use of insulin: Code(s): E11.9 - Type 2 diabetes mellitus without complications Category: Medical Plan: Her latest hemoglobin A1c now is higher at 6.5%. Reinforced importance of following recommended diet and getting regular exercise. She has been on Trulicity in the past and did well on it, lost weight with diabetes well controlled but patient states insurance denied prescription. Would like to try another GLP 1 agonist to help control her diabetes mellitus and help her lose weight. Prescription sent for Mounjaro 2.5 mg per injection, to inject once a week as directed. Will see her back for follow-up in 3 months after fasting labs done. Januvia discontinued (4) Anxiety in acute stress reaction: Code(s): F41.1 - Generalized anxiety disorder; F43.0 - Acute stress reaction Plan: Refill prescription sent for clonazepam 0.5 mg to take 1 tablet only as needed for acute anxiety attacks. Orders: Orders Hemoglobin A1c 05/04/25 E11.9 - Type 2 diabetes mellitus without complications, E78.5 - Hyperlipidemia, unspecified, E89.0 - Postprocedural hypothyroidism, I10 - Essential (primary) hypertension Thyroid Stimulating Hormone 05/04/25 E11.9 - Type 2 diabetes mellitus without complications, E78.5 - Hyperlipidemia, unspecified, E89.0 - Postprocedural hypothyroidism, I10 - Essential (primary) hypertension Basic Metabolic Panel Fasting 05/04/25 E11.9 - Type 2 diabetes mellitus without complications, E78.5 - Hyperlipidemia, unspecified, E89.0 - Postprocedural hypothyroidism, I10 - Essential (primary) hypertension Aspartate Amino Transferase 05/04/25 E11.9 - Type 2 diabetes mellitus without complications, E78.5 - Hyperlipidemia, unspecified, E89.0 - Postprocedural hypothyroidism, I10 - Essential (primary) hypertension Alanine Aminotransferase 05/04/25 E11.9 - Type 2 diabetes mellitus without complications, E78.5 - Hyperlipidemia, unspecified, E89.0 - Postprocedural hypo thyroidism, I10 - Essential (primary) hypertension Lipid Panel 05/04/25 E11.9 - Type 2 diabetes mellitus without complications, E78.5 - Hyperlipidemia, unspecified, E89.0 - Postprocedural hypothyroidism, I10 - Essential (primary) hypertension Free T4 (Free Thyroxine) 05/04/25 E11.9 - Type 2 diabetes mellitus without complications, E78.5 - Hyperlipidemia, unspecified, E89.0 - Postprocedural hypothyroidism, I10 - Essential (primary) hypertension Medications: New Mounjaro (tirzepatide) for 4 weeks 2.5 mg (0.5 mL) subcut QWEEK 2 mL 5RF 30 days NS E11.9 - Type 2 diabetes mellitus without complications, E78.5 - Hyperlipidemia, unspecified, E8 9.0 - Postprocedural hypothyroidism Refilled clonazepam administer 30 minutes before bedtime 0.5 mg PO BEDTIME 10 tabs 0RF Discontinued sitagliptin phosphate (Januvia) Discontinued Reason: Doctor's Order 100 mg PO DAILY 90 tabs 0RF E11.9 - Type 2 diabetes mellitus without complications
--- OUTSIDE RECORDS SUMMARY | 2025-02-11 09:58 | XMS_ITS | Patient Health Record ---
[facility] Address [address] [address] Care Team Providers Care Balance Truing Inspector Name Role Phone Olinda MOBLEY, Jonelle Chacon Primary Care Provider Un available Marissa James Unavailable [phone] Allergies Allergen (clinical drug ingredient) Drug/Non Drug Allergy documented on EMR Reaction Allergy Type Onset Date Status acetaminophen / oxycodone Percocet vomiting Drug Allergy Active Reason For Referral No Information Medications Medication SIG (Take, Route, Frequency, Duration) Notes Start Date End Date Status Lisinopril 2.5 MG Oral; Duration: 90 Days Active Levothyroxine Sodium 112 MCG Oral; Duration: 90 Days Active ALPRAZolam 1 MG Oral; Duration: 3 Days Active clonazePAM 0.5 MG Oral; Duration: 10 Days PRN Active Fenofibrate Micronized 134 MG Oral; Duration: 90 Days Acti ve Atorvastatin Calcium 20 MG Oral; Duration: 90 Days Active Venlafaxine HCl ER 37.5 MG Oral; Duration: 90 Days Active Januvia 100 MG Oral; Duration: 90 Days Active Susan Complex Acti ve Chlorthalidone 25 MG Oral; Duration: 90 Days Active Omeprazole 40 MG Oral; Duration: 82 Days Active Social History Tobacco Use: [...] W/U Status Risk Notes Problem Plantar wart (27528626) Plantar wart (B07.0) Active confirmed Problem Type II diabetes mellitus without complication (774674473) Type 2 diabetes mellitus without complication, without long-term current use of insulin (E11.9) Active confirmed Vital Signs Heart Rate 67 /min 08/31/2024 Blood pressure diastolic 75 mm Hg 11/17/2024 Height 5ft2in in 11/17/2024 Blood pressure systolic 117 mm Hg 11/17/2024 Weight 150 lbs 11/17/2024 BMI 27.43 kg/m2 11/17/2024 Encounters Encounter Location Date [facility] [address] 08/31/2024 Marissa James Left foot pain M79.672 ; Plantar wart B07.0 and Type 2 diabetes mellitus without complication, without long-term current use of insulin E11.[address] [address] 11/17/2024 Marissa James Left foot pain M79.672 ; Plantar wart B07.0 and Type 2 diabetes mellitus without complication, without long-term current use of insulin E11.[address] [address] 08/18/2024 Marissa James Assessments Encounter Date Diagnosis [...] Insured Coverage Start Date Coverage End Date [employer] [address] [address] [place] [address] [id number] Chalino Hendrix Spouse - patient is the spouse of the insured Medical (General) History Medical History History ICD Code Back,Hip,and Knee pain Broken bones CAD (Cholesterol) covid-19 Diabetes mellitus High Blood Pressure Reflux ( GERD) thyroid Chicken pox Surgical History Surgery Date(Month/Year) 06/27/92,09/09/98 Plantar Wart 08/2020 Lipo & Abdominoplasty 04/30/24
== END 2025-02-11 10:17 | disposition home or self-care (01) ==
LOC: HO.HMCC 09:40
PROVIDERS: PCP Internal Medicine; Visit Provider Internal Medicine
DX: E11.69 Type 2 diabetes mellitus with other specified complication (principal); E89.0 Postprocedural hypothyroidism; E78.5 Hyperlipidemia, unspecified; F41.1 Generalized anxiety disorder; F43.0 Acute stress reaction

== ENCOUNTER → 2025-02-11 09:40 | Outpatient (BNVA) | payer OTHER, SELFPAY | PROVIDERS: PCP Internal Medicine; Visit Provider Internal Medicine | DX: E11.9 Type 2 diabetes mellitus without complications (principal); E89.0 Postprocedural hypothyroidism; E78.5 Hyperlipidemia, unspecified; F41.1 Generalized anxiety disorder; F43.0 Acute stress reaction; Z79.899 Other long term (current) drug therapy | CPT/HCPCS: 96127 ==

== ENCOUNTER 2025-02-14 10:12 | Outpatient (AMB) | payer OTHER, SELFPAY ==
--- NOTE | 2025-02-14 10:19 | MHC.OFFVIS ---
Vital Signs 02/14/25 10:24 Height 5 ft 2 in Weight 152 lb BMI 27.8 BP 116/73 Blood Pressure Location Lt brachial Position Sitting Pulse 67 Pulse Oximetry (%) 98 Oxygen Delivery Method Room Air Intake Visit Reasons: Gastroesophageal reflux disease (GERD) Intake Note: Patient complex follow up for GERD/Izzy pt sadia 2023. Patient cc: GERD with burning sensation/needed med refill, abdominal bloating. Denies any other GI issues. 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 Patient previously seen by Shahzad VOGT. Last visit year ago. Patient continues to occasional acid reflux. Patient reports that when she takes omeprazole she feels fine, however any time she forgets to take medication she will have acid reflux. Patient denies any dyspepsia, dysphagia or odynophagia. Reports postprandial abdominal bloating. Patient reports that he is going to the bathroom when she uses stool softener and MiraLax. When using both he feels like he empties well. Denies any melena, hematochezia, unintentional weight loss or ribbon like stools foods colonoscopy in 2020 10 year recall. [facility] Medical History Diabetes mellitus, without long-term current use of insulin Herpes zoster Heartburn Numbness and tingling in both hands Right medial knee pain Early menopause occurring in patient age younger than 45 years Menopausal vaginal dryness Low libido Hot flashes Vitamin D deficiency Gastritis Superficial burn of right thigh De Quervain's tenosynovitis, left Lateral epicondylitis, right elbow Hot flashes due to menopause Gastroparesis Gastroparesis Plantar wart, left foot Epicondylitis Carpal tunnel syndrome DJD (degenerative joint disease) Essential hypertension Hyperlipidemia LDL goal <100 Postablative hypothyroidism Surgical History Hx of endoscopy Hx of colonoscopy Hx of mammogram Hx of foot surgery Hx of tubal ligation Hx of section Family History Father Diabetes CVD (cardiovascular disease) Stomach ulcer Mother Diabetes Colon polyps Dementia Family/Other Stomach cancer Social History Household Members: Spouse and Children Housing: House Alcohol intake: current Alcohol intake frequency: holidays/special occasions only Patient Tobacco Use Status: Former Tobacco user Tobacco use type: Cigarette e-Cigarette/Vaping Use: Currently Using Current occupational status: employed 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 Gender identity: Female Cognitive needs: No Hearing needs: No Vision needs: Yes Review of Systems Const Denies weight gain and Denies weight loss ENT Reports no additional complaints, Denies dysphagia and Denies odynophagia Card Reports no additional complaints Resp Reports no additional complaints GI Denies abdominal pain, Denies belching, Denies melena, Reports bloating, Denies change in bowel habits, Reports constipation (Occasional), Denies dysphagia, Denies excessive flatus, Denies dyspepsia, Reports heartburn (Occasional), Denies diarrhea, Denies loose stools, Denies nausea, Denies odynophagia and Denies vomiting Reports no additional complaints Musc Reports no additional complaints Neuro Reports no additional complaints Psych Reports no additional complaints Endo Reports no additional complaints Physical Exam Vital Signs: Last Vital Signs Pulse 67 02/14/25 10:24 BP 116/73 02/14/25 10:24 Pulse Ox 98 02/14/25 10:24 Oxygen Delivery Method Room Air 02/14/25 10:24 BMI result Body Mass Index 27.8 Const General: healthy appearing, no acute distress and well developed Nutritional Appearance: well nourished Orientation/consciousness: patient oriented x3 Resp Effort & Inspection: normal respiratory effort, able to speak in complete sentences, no tracheal deviation and symmetric chest movement Auscultation: clear to auscultation bilaterally Cardio Rate: regular rate GI Inspection: Yes normal to inspection and No distended Palpation (GI): Soft to palpation, not firm, nontender and No hepatosplenomegaly present Auscultation: normal bowel sounds General: Yes no CVA tenderness Back/Spine/Pelvis Back: no CVA tenderness Skin General skin exam: elasticity normal, turgor normal and dry skin Neuro General: patient oriented x3 Psych Appearance: grossly normal Mental Status: mental status grossly normal Assessment & Plan Assessment & Plan (1) Gastritis: Code(s): K29.70 - Gastritis, unspecified, without bleeding Category: Medical Qualifiers: Gastritis type: unspecified gastritis Chronicity: unspecified Gastritis bleeding: presence of bleeding unspecified Qualified Code(s): K29.70 - Gastritis, unspecified, without bleeding (2) Chronic constipation: Code(s): K59.09 - Other constipation Category: Medical (3) Acid reflux: Code(s): K21.9 - Gastro-esophageal reflux disease without esophagitis Category: Medical Qualifiers: Esophagitis presence: esophagitis presence not specified Qualified Code(s): K21.9 - Gastro-esophageal reflux disease without esophagitis Plan Patient will continue taking omeprazole. Avoid dietary triggers and late at snacking. Staying upright for minimum 3 hours after meals discussed with patient. Continue on bowel regimen. Increase fluid intake and activity to promote better bowel motility. Follow-up in 6 months, sooner on a as needed basis. She is agreeable to this plan and verbalizes understanding of instructions. She was given the opportunity to ask questions and all questions answered Thank you for allowing me to participate in her care Orders: Orders Vitamin B12 and Folate Today R19.7 - Diarrhea, unspecified Transglutaminase IgA Today R10.9 - Unspecified abdominal pain Vitamin D 25-OH (D2 and D3) Today E55.9 - Vitamin D deficiency, unspecified Coding Level of Care Code Est Pt Level 3 (17638) Diagnoses Gastritis, presence of bleeding unspecified, unspecified chronicity, unspecified gastritis type K29.70 Gastritis type: unspecified gastritis Chronicity: unspecified Gastritis bleeding: presence of bleeding unspecified Chronic constipation K59.09 Gastroesophageal reflux disease, unspecified whether esophagitis present K21.9 Esophagitis presence: esophagitis presence not specified Time Spent (min) 35 Comment 25 minutes spent with patient and additional 10 minutes spent reviewing her records
[2025-02-14 10:24] VITALS: BP 116/73; PULSE 67; O2SAT 98; BMI 27.8
== END 2025-02-14 10:55 | disposition home or self-care (01) ==
LOC: HO.HGI 10:13
PROVIDERS: PCP Internal Medicine; Visit Provider Nurse Practitioner Family
DX: K29.70 Gastritis, unspecified, without bleeding (principal); K59.09 Other constipation; K21.9 Gastro-esophageal reflux disease without esophagitis
CPT/HCPCS: 99213

== ENCOUNTER 2025-03-09 11:24 | Outpatient (AMB) | payer OTHER, SELFPAY ==
[2025-03-09 11:27] VITALS: BMI 27.8
--- NOTE | 2025-03-09 11:27 | A.OFFVIS_ITS ---
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 States she continues to have numbness and tingling which has worsen. States she had her EMG done in 2022 and is interested in getting a carpal tunnel injection. Last A1C 01/29/25 * 6.5. 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 She complains of numbness and tingling in both hands right worse than left. The numbness has become more constant on the right but both of the bother her at night. She was told in 2022 that she had carpal tunnel syndrome but just wants to treat them with injections. She has already appreciating weakness and clumsiness in her right hand. [facility] Medical History Diabetes mellitus, without long-term current use of insulin Herpes zoster Heartburn Numbness and tingling in both hands Right medial knee pain Early menopause occurring in patient age younger than 45 years Menopausal vaginal dryness Low libido Hot flashes Vitamin D deficiency Gastritis Superficial burn of right thigh De Quervain's tenosynovitis, left Lateral epicondylitis, right elbow Hot flashes due to menopause Gastroparesis Gastroparesis Plantar wart, left foot Epicondylitis Carpal tunnel syndrome DJD (degenerative joint disease) Essential hypertension Hyperlipidemia LDL goal <100 Postablative hypothyroidism Surgical History Hx of endoscopy Hx of colonoscopy Hx of mammogram Hx of foot surgery Hx of tubal ligation Hx of section Family History Father Diabetes CVD (cardiovascular disease) Stomach ulcer Mother Diabetes Colon polyps Dementia Family/Other Stomach cancer Social History Household Members: Spouse and Children Housing: House Alcohol intake: current Alcohol intake frequency: holidays/special occasions only Patient Tobacco Use Status: Former Tobacco user Tobacco use type: Cigarette e-Cigarette/Vaping Use: Currently Using Current occupational status: employed 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 In the right hand she already has some decreased sensation that is persistent in the median nerve distribution. Normal sensation in the ulnar nerve distribution of the right hand Normal sensation to all digits of the left hand No intrinsic or thenar wasting. She can make a fist and extend all of her digits No locking or catching Smooth and painless wrist range of motion Cap refill brisk EMG nerve conduction study from 07/18/2023: This study showed bilateral moderate to severe carpal tunnel syndrome. Please see the report for additional information as necessary. Assessment & Plan Assessment & Plan (1) Carpal tunnel syndrome of left wrist: Code(s): G56.02 - Carpal tunnel syndrome, left upper limb Category: Medical (2) Carpal tunnel syndrome of right wrist: Code(s): G56.01 - Carpal tunnel syndrome, right upper limb Category: Medical Plan Assessment and plan: 1. Right carpal tunnel syndrome, moderate to severe Persistent numbness, with worsening of symptoms at night 2. Left carpal tunnel syndrome, moderate to severe Symptoms intermittent but daily I educated her about this condition I explained why I did not recommend a steroid injection for this condition. We discussed the risks of delaying treatment for carpal tunnel syndrome at length. She would like to proceed with a carpal tunnel release. The risks and benefits of operative treatment were discussed with the patient and the patient wishes to proceed with surgery. These risks include, but are not limited to risk of damage to blood vessels, nerves, tendons, infection, recurrence, incomplete relief of preoperative symptoms, persistent pain, possible need for further surgery and the risks associated with regional blocks and anesthesia. The plan is to take the patient to the operating room sometime in the next 3 weeks for the following procedures: 1. Right carpal tunnel release under local 2. [ ] All of the preoperative paperwork including the consent was filled out today. All the patient's questions were answered. The patient understands that they will be contacted by our project controls scheduler soon to schedule this procedure We can address treatment of the left carpal tunnel syndrome at a later date Coding Level of Care Code Est Pt Level 4 (17667) Diagnoses Carpal tunnel syndrome of left wrist G56.02 Carpal tunnel syndrome of right wrist G56.01
--- OUTSIDE RECORDS SUMMARY | 2025-03-09 12:11 | XMS_ITS | Patient Health Record ---
[facility] Address [address] [place] [address] Care Team Providers Care Celery Cutter Name Role Phone Olinda MOBLEY, Jonelle Chacon Primary Care Provider Un available Marissa James Unavailable [phone] Allergies Allergen (clinical drug ingredient) Drug/Non Drug [...] W/U Status Risk Notes Problem Plantar wart (13312698) Plantar wart (B07.0) Active confirmed Problem Type II diabetes mellitus without complication (683412783) Type 2 diabetes mellitus without complication, without long-term current use of insulin (E11.9) Active confirmed Vital Signs Heart Rate 67 /min 08/31/2024 Blood pressure diastolic 75 mm Hg 11/17/2024 Height 5ft2in in 11/17/2024 Blood pressure systolic 117 mm Hg 11/17/2024 Weight 150 lbs 11/17/2024 BMI 27.43 kg/m2 11/17/2024 Encounters Encounter Location Date [facility] [address] 08/31/2024 Marissa James Left foot pain M79.672 ; Plantar wart B07.0 and Type 2 diabetes mellitus without complication, without long-term current use of insulin E11.[address] [address] 11/17/2024 Marissa James Left foot pain M79.672 ; Plantar wart B07.0 and Type 2 diabetes mellitus without complication, without long-term current use of insulin E11.[address] [address] 08/18/2024 Marissa James Assessments Encounter Date Diagnosis [...] Insured Coverage Start Date Coverage End Date [employer] [address] [address] [place] [address] [phone] [id number] Chalino Hendrix Spouse - patient is the spouse of the insured Medical (General) History Medical History History ICD Code Back,Hip,and Knee pain Broken bones CAD (Cholesterol) covid-19 Diabetes mellitus High Blood Pressure Reflux ( GERD) thyroid Chicken pox Surgical History Surgery Date(Month/Year) 06/27/92,09/09/98 Plantar Wart 08/2020 Lipo & Abdominoplasty 04/30/24
== END 2025-03-09 11:57 | disposition home or self-care (01) ==
LOC: HO.HOS 11:24
PROVIDERS: PCP Internal Medicine; Visit Provider Orthopaedic Surgery
DX: G56.03 Carpal tunnel syndrome, bilateral upper limbs (principal)
CPT/HCPCS: 99214

== ENCOUNTER 2025-04-26 14:18 | Outpatient (AMB) | payer OTHER, SELFPAY ==
[2025-04-26 14:39] VITALS: BMI 28.6
--- NOTE | 2025-04-26 14:39 | A.OFFVIS_ITS ---
VS Expanded 04/26/25 14:39 05/03/25 19:44 Height 5 ft 2 in 5 ft 2 in Weight 156 lb 4.924 oz 156 lb BMI 28.6 28.5 Intake Visit Reasons: Type 2 diabetes mellitus without complications Allergies oxycodone (From PERCOCET) Adverse Reaction (Unknown, Verified 03/09/25 11:34) NAUSEA & VOMITING Nutrition Presentation Details: Pt presents for MNT for t2dm Pt has questions regarding macronutrients for glucose control Tyipical meal intake B: coffee cheese/turkey on its own or with crackers lunch:soup lentil dinner lentil/ham soup snacks: fruits/yogurt/empty alma rosa food frequency fish : 0-1/wk fruits: 1/d dairy 1-2/d veg starchy veg5/d fried foods 0-1/wk eating out 0-1/wk BS Monitoring Most Recent Diabetes Results: Microalb/Creat Ratio, (<30) 19.2 ug/mg cr 01/29/25 Cholesterol, (<200) 163 mg/dL 01/29/25 HDL Cholesterol, (>40) 54 mg/dL 01/29/25 Triglycerides, (<150) 153 mg/dL H 01/29/25 Creatinine, (0.5-1.4) 0.74 mg/dL 01/29/25 BUN, (9-16) 24 mg/dL H 01/29/25 Sodium, (135-145) 139 mmol/L 01/29/25 Potassium, (3.3-5.1) 3.7 mmol/L 01/29/25 Chloride, (96-108) 104 mmol/L 01/29/25 Carbon Dioxide, (22-29) 26 mmol/L 01/29/25 Calcium, (8.4-10.2) 9.5 mg/dL 01/29/25 AST, (5-31) 23 U/L 01/29/25 ALT, (0-31) 32 U/L H 01/29/25 EBB-Vvymcpj-Zy.Jeor Equation Height: 5 ft 2 in Weight: 156 lb Resting Metabolic Rate: 1264.47 Calculated Activity Level: Sedentary Calories Needed to Maintain Weight: 1517.36 Diagnosis Nutrition problem #1: excessive energy intake As related to (etiology) #1: diagnosis As evidenced by (sign/symptom) #1: knowledge deficit of diet [facility] Medical History (Updated 03/09/25 @ 12:00 by Keila Montoya MD) Diabetes mellitus, without long-term current use of insulin Herpes zoster Heartburn Numbness and tingling in both hands Right medial knee pain Early menopause occurring in patient age younger than 45 years Menopausal vaginal dryness Low libido Hot flashes Vitamin D deficiency Gastritis Superficial burn of right thigh De Quervain's tenosynovitis, left Lateral epicondylitis, right elbow Hot flashes due to menopause Gastroparesis Gastroparesis Plantar wart, left foot Epicondylitis Carpal tunnel syndrome DJD (degenerative joint disease) Essential hypertension Hyperlipidemia LDL goal <100 Postablative hypothyroidism Surgical History (Updated 05/02/25 @ 12:33 by Guillermina Vargas RN) H/O abdominoplasty Hx of endoscopy Hx of colonoscopy Hx of mammogram Hx of foot surgery Hx of tubal ligation Hx of section Family History Father Diabetes CVD (cardiovascular disease) Stomach ulcer Mother Diabetes Colon polyps Dementia Family/Other Stomach cancer Social History Household Members: Spouse and Children Housing: House Alcohol intake: current Alcohol intake frequency: holidays/special occasions only Patient Tobacco Use Status: Former Tobacco user Tobacco use type: Cigarette e-Cigarette/Vaping Use: Currently Using Current occupational status: employed 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 Gender identity: Female Cognitive needs: No Hearing needs: No Vision needs: Yes Assessment & Plan Assessment & Plan (1) Diabetes mellitus, without long-term current use of insulin: Code(s): E11.9 - Type 2 diabetes mellitus without complications Category: Medical Plan: current wt: 71 kg ( 04/28 ) est kcal needs as per MSJ: 3612-3946 est protein needs as per 1 g/kg BW: 70 est fluid needs as per 30 ml/kg BW: 2100 Recommended fiber > 12 g /day and gradually increase up to 25-28 g /day or as tolerated Rec sodium intake <2300mg/d unless otherwise specified by MD Nutrition topics discussed : Reviewed (R), Pt verbalized understanding (V) , not applicable (N/A) R, V, : Healthy Plate Method Concept: R, : Carbohydrates: food sources of carbohydrates, relationship of carbohydrates to blood glucose, fatty liver GI health. Recommended total amount of carbohydrates per meals and snack. Differences between simple carbohydrates and complex carbohydrates R, : Lean protein foods including vegan , vegetarian sources of protein. Benefits of protein (including but not limited to healing, nutritional value , benefits in weight loss, glucose control R, V, N/A: Fats : Source of fats, benefits of fats. Difference between saturated and unsaturated fats. Saturated fats and its contribution to inflammation R, V, N/A: Fiber: food sources and role of fiber in the diet (including but not limited to its role as a prebiotic, benefits in constipation, role in IBS , role in glucose control and cholesterol level) R, : Hydration: role of hydration and prevention of dehydration or over hydration. Foods and water content. R, V, N/A: Vitamins and Minerals in foods and supplements R, V, N/A: Interpreting food labels, including serving size, macronutrients, vitamins, minerals, allergens, ingredient list , % daily value Patient Instructions: Have yogurt with fruit and nuts as snack (working on reducing carbs as snack to less than 20 g ) keep hydrated by having water, herb/fruit infused water see 1700 alma rosa meal plan Coding Level of Care Code Nutr Indiv Intake (74141) Diagnoses Diabetes mellitus, without long-term current use of insulin E11.9 Time Spent (min) 30
--- OUTSIDE RECORDS SUMMARY | 2025-04-26 17:34 | XMS_ITS | Patient Health Record ---
Author [facility] Address [address] [place] [address] Care Team Providers Care Medical Chief Technician Name Role Phone Olinda MOBLEY, Jonelle Chacon Primary Care Provider Un available Marissa James Unavailable [phone] Allergies Allergen (clinical drug ingredient) Drug/Non Drug [...] W/U Status Risk Notes Problem Plantar wart (78936373) Plantar wart (B07.0) Active confirmed Problem Type II diabetes mellitus without complication (054186012) Type 2 diabetes mellitus without complication, without long-term current use of insulin (E11.9) Active confirmed Vital Signs Heart Rate 67 /min 08/31/2024 Blood pressure diastolic 75 mm Hg 11/17/2024 Height 5ft2in in 11/17/2024 Blood pressure systolic 117 mm Hg 11/17/2024 Weight 150 lbs 11/17/2024 BMI 27.43 kg/m2 11/17/2024 Encounters Encounter Location Date [facility] [address] 08/31/2024 Marissa James Left foot pain M79.672 ; Plantar wart B07.0 and Type 2 diabetes mellitus without complication, without long-term current use of insulin E11.[address] [address] 11/17/2024 Marissa James Left foot pain M79.672 ; Plantar wart B07.0 and Type 2 diabetes mellitus without complication, without long-term current use of insulin E11.[address] [address] 08/18/2024 Marissa aJmes Assessments Encounter Date Diagnosis (ICD Code) Assessment [...] Insured Coverage Start Date Coverage End Date [employer] [address] [address] [place] [address] [id number] Chalino Hendrix Spouse - patient is the spouse of the insured Medical (General) History Medical History History ICD Code Back,Hip,and Knee pain Broken bones CAD (Cholesterol) covid-19 Diabetes mellitus High Blood Pressure Reflux ( GERD) thyroid Chicken pox Surgical History Surgery Date(Month/Year) 06/27/92,09/09/98 Plantar Wart 08/2020 Lipo & Abdominoplasty 04/30/24
[2025-05-04 10:06] VITALS: BMI 28.5
== END 2025-04-26 15:11 | disposition home or self-care (01) ==
LOC: HO.ENCR 14:19
PROVIDERS: PCP Internal Medicine; Visit Provider Dietitian, Registered
DX: E11.9 Type 2 diabetes mellitus without complications (principal)

== ENCOUNTER → 2025-04-26 14:18 | Outpatient (BNVA) | payer OTHER, SELFPAY | PROVIDERS: PCP Internal Medicine; Visit Provider Dietitian, Registered | DX: E11.9 Type 2 diabetes mellitus without complications (principal) | CPT/HCPCS: 97802 ==

== ENCOUNTER 2025-05-02 11:43 | Day surgery (SDC) | payer OTHER, SELFPAY ==
--- OUTSIDE RECORDS SUMMARY | 2025-03-10 08:01 | XMS_ITS | Patient Health Record ---
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 Name Role Phone Olinda MOBLEY, Jonelle Chacon Primary Care Provider Un available Marissa James Unavailable [phone] Allergies Allergen (clinical drug ingredient) Drug/Non Drug [...] W/U Status Risk Notes Problem Plantar wart (62966656) Plantar wart (B07.0) Active confirmed Problem Type 2 diabetes mellitus without complication, without long-term current use of insulin (E11.9) Active confirmed Vital Signs Heart Rate 67 /min 08/31/2024 Blood pressure diastolic 75 mm Hg 11/17/2024 Height 5ft2in in 11/17/2024 Blood pressure systolic 117 mm Hg 11/17/2024 Weight 150 lbs 11/17/2024 BMI 27.43 kg/m2 11/17/2024 Encounters Encounter Location Date Provider Diagnosis [facility] [address] 08/31/2024 Marissa Perica Left foot pain M79.672 ; Plantar wart B07.0 and Type 2 diabetes mellitus without complication, without long-term current use of insulin E11.[address] [address] 11/17/2024 Marissa Perica Left foot pain M79.672 ; Plantar wart B07.0 and Type 2 diabetes mellitus without complication, without long-term current use of insulin E11.[address] [address] 08/18/2024 Marissa James Assessments Encounter Date Diagnosis [...] Coverage End Date [employer] [address] [address] [place] [address] [id number] Chalino Hendrix Spouse - patient is the spouse of the insured Medical (General) History Medical History History ICD Code Back,Hip,and Knee pain Broken bones CAD (Cholesterol) covid-19 Diabetes mellitus High Blood Pressure Reflux ( GERD) thyroid Chicken pox Surgical History Surgery Date(Month/Year) 06/27/92,09/09/98 Plantar Wart 08/2020 Lipo & Abdominoplasty 04/30/24
[2025-05-02 12:33] VITALS: BMI 27.8
[2025-05-02 12:34] VITALS: BP 101/66; PULSE 69; RESP 16; TEMP 36.2; O2SAT 94
--- NOTE | 2025-05-02 13:41 | P.OP_ITS ---
Operative Note Operative Note Date of Service: 05/02/25 Narrative: Preop diagnosis: 1. Right Carpal tunnel syndrome Postop diagnosis: same Procedure: 1. Right Carpal tunnel release Surgeon: Keila Montoya MD Creative Intern: None Anesthesia: local block using 1% lidocaine with epinephrine Findings: Thickened transverse carpal ligament. EBL: Less than 5 mL Specimens: None Complications: None Disposition: Brought to recovery room in stable condition Plan: Follow-up for 10-14 days for wound check and suture removal Indications: The patient is 54 years old, with right carpal tunnel syndrome that has been unresponsive to nonoperative management. The risks and benefits of operative treatment including but not limited to risk of damage to blood vessels, nerves, tendons, infection, persistent pain, persistent symptoms, or possible need for additional surgery were discussed with the patient and the patient wishes to proceed with surgery. Procedure: Once consent was obtained a local block was performed using a combination of 1% lidocaine with epinephrine. The patient was then brought back to the operating suite and placed on the operative table in supine position. The right upper extremity was prepped and draped in a standard surgical fashion. Once assured that we had a good block, a 2.0 cm longitudinal incision was made centered over the carpal tunnel. The incision was made through the skin to the subcutaneous tissues using a #15 blade. Dissection was made down to the level of the transverse carpal ligament with care being taken to protect the palmar cutaneous nerve. Once the transverse carpal ligament was clearly visualized, a longitudinal incision was made in the transverse carpal ligament 1st using a #15 blade, then using tenotomy scissors under direct visualization. Care was taken to look for and protect the motor branch of the median nerve when seen in this area. Once satisfied with our carpal tunnel release the wound was copiously irrigated with normal saline and hemostasis was obtained with a brief period of local pressure. The skin edges were reapproximated with some 5.0 nylon suture material and a sterile dressing was applied. The patient appears to have tolerated the procedure well and with no complic ations. All digits were well vascularized at the conclusion of the case.
--- NOTE | 2025-05-02 13:41 | MHC.SHP ---
Pre-Procedural Eval Section A - 24 Hr Update-Section A only Date of Service: 05/02/25 The patient is an INPATIENT: No Changes since office visit: No Cold of Flu in the past 2 weeks, No New Medical Problems, No Changes in Medication and No Patient answered all questions The patient has been examined within 24 hours of the surgical procedure. The History & Physical has been completed within 30 days and I have reviewed it.: Yes Section B - Complete if H&P > 30 days Chief Complaint: Carpal tunnel syndrome, right upper limb Allergies: Allergies Allergy/AdvReac Type Severity Reaction Status Date / Time oxycodone (From PERCOCET) AdvReac Unknown NAUSEA & Verified 03/09/25 11:34 VOMITING Plan Diagnosis/Plan: Unchanged I have reviewed the history and physical and performed a pertinent physical examination on my patient. No changes have occurred unless specified. Time Spent With Patient Time: Total time managing care of this patient today ____ minutes.
[2025-05-02 16:30] VITALS: BP 126/77; PULSE 66; RESP 16; O2SAT 98
== END 2025-05-02 16:31 | disposition home or self-care (01) ==
PROVIDERS: PCP Internal Medicine; Visit Provider Orthopaedic Surgery
PROC: (CPT 64721; principal; 2025-05-02 15:50)
DX: G56.01 Carpal tunnel syndrome, right upper limb (principal); R20.0 Anesthesia of skin; R20.2 Paresthesia of skin; E55.9 Vitamin D deficiency, unspecified; E11.9 Type 2 diabetes mellitus without complications; B02.9 Zoster without complications; I10 Essential (primary) hypertension; E78.5 Hyperlipidemia, unspecified; E89.0 Postprocedural hypothyroidism; Z88.5 Allergy status to narcotic agent; Z98.890 Other specified postprocedural states; Z87.891 Personal history of nicotine dependence
CPT/HCPCS: 64721; J0165; J2003

== ENCOUNTER → 2025-05-02 11:43 | Outpatient (BNV) | payer OTHER, SELFPAY | PROVIDERS: PCP Internal Medicine; Visit Provider Orthopaedic Surgery | DX: G56.01 Carpal tunnel syndrome, right upper limb (principal) | CPT/HCPCS: 64721 ==

== ENCOUNTER 2025-05-17 13:59 | Outpatient (AMB) | payer OTHER, SELFPAY ==
--- NOTE | 2025-05-17 14:01 | MHC.OFFVIS ---
Vital Signs 05/17/25 14:02 Height 5 ft 2 in Weight 156 lb BMI 28.5 Intake Visit Reasons: PO RT CTR 05/02/25 AR Intake Note: Elizabeth is a 52 year old right hand dominant female who presents today post-operatively status post Right Carpal Tunnel Release, DOS: 05/02/[address] Montoya. Patient denies numbness or tingling. She is taking Ibuprofen PRN with relief. Sutures removed and steri strips applied. Allergies oxycodone (From PERCOCET) Adverse Reaction (Unknown, Verified 05/18/25 10:36) NAUSEA & VOMITING HPI HPI PO RT CTR 05/02/25 AR: Details: Elizabeth is a 52 year old right hand dominant female who presents today post-operatively status post Right Carpal Tunnel Release, DOS: 05/02/[address] Montoya. Patient denies numbness or tingling. She is taking Ibuprofen PRN with relief. Sutures removed and steri strips applied. [facility] Medical History (Updated 05/18/25 @ 10:52 by Jonelle Prakash MD) Diabetes mellitus, without long-term current use of insulin Herpes zoster Heartburn Numbness and tingling in both hands Right medial knee pain Early menopause occurring in patient age younger than 45 years Menopausal vaginal dryness Low libido Hot flashes Vitamin D deficiency Gastritis Superficial burn of right thigh De Quervain's tenosynovitis, left Lateral epicondylitis, right elbow Hot flashes due to menopause Gastroparesis Gastroparesis Plantar wart, left foot Epicondylitis Carpal tunnel syndrome DJD (degenerative joint disease) Essential hypertension Hyperlipidemia LDL goal <100 Postablative hypothyroidism Surgical History (Updated 05/18/25 @ 10:52 by Jonelle Prakash MD) History of carpal tunnel release H/O abdominoplasty Hx of endoscopy Hx of colonoscopy Hx of mammogram Hx of foot surgery Hx of tubal ligation Hx of section Family History Father Diabetes CVD (cardiovascular disease) Stomach ulcer Mother Diabetes Colon polyps Dementia Family/Other Stomach cancer Social History Household Members: Spouse and Children Housing: House Alcohol intake: current Alcohol intake frequency: holidays/special occasions only Patient Tobacco Use Status: Former Tobacco user Tobacco use type: Cigarette e-Cigarette/Vaping Use: Former Use Current occupational status: employed 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 Neuro: Normal sensation of the tips of all digits of the right hand at this time Vascular: Cap refill brisk Pain: No tenderness to palpation about the incision site on volar right wrist No pain with range of motion ROM: Patient is able to make a closed fist and extend all digits of the right hand fully and without difficulty Skin: Well approximated and well healing incision site noted on the volar right wrist No lacerations or abrasions. General: No ecchymosis, erythema, or evidence of infection. Psych: Appears grossly normal Affect normal Attitude cooperative Assessment & Plan Assessment & Plan (1) Carpal tunnel syndrome of left wrist: Code(s): G56.02 - Carpal tunnel syndrome, left upper limb Category: Medical (2) Carpal tunnel syndrome of right wrist: Code(s): G56.01 - Carpal tunnel syndrome, right upper limb Category: Medical Plan Number status post right carpal tunnel release DOS 05/02/2025 With good symptom resolution postoperatively Patient appears to be recovering well from her surgery Patient is educated about the typical recovery course No under water x1 week, 2 lb weight limit x2 weeks No acute follow-up indicated, as patient appears to be recovering quite well Does have left carpal tunnel syndrome as well, but would like to hold off on surgical intervention at this time Patient is educated on risks of prolonging treatment for carpal tunnel syndrome Follow-up when she is ready to discuss left carpal tunnel release, sooner with any acute concerns Coding Level of Care Code Global (36851) Diagnoses Carpal tunnel syndrome of left wrist G56.02 Carpal tunnel syndrome of right wrist G56.01
[2025-05-17 14:02] VITALS: BMI 28.5
--- OUTSIDE RECORDS SUMMARY | 2025-05-17 16:59 | XMS_ITS | Patient Health Record ---
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 Name Role Phone Olinda MOBLEY, Jonelle Chacon Primary Care Provider Un available Marissa James Unavailable [phone] Allergies Allergen (clinical drug ingredient) Drug/Non Drug [...] W/U Status Risk Notes Problem Plantar wart (90734128) Plantar wart (B07.0) Active confirmed Problem Type II diabetes mellitus without complication (450203161) Type 2 diabetes mellitus without complication, without long-term current use of insulin (E11.9) Active confirmed Vital Signs Heart Rate 67 /min 08/31/2024 Blood pressure diastolic 75 mm Hg 11/17/2024 Height 5ft2in in 11/17/2024 Blood pressure systolic 117 mm Hg 11/17/2024 Weight 150 lbs 11/17/2024 BMI 27.43 kg/m2 11/17/2024 Encounters Encounter Location Date Provider [facility] [address] 08/31/2024 Marissa James Left foot pain M79.672 ; Plantar wart B07.0 and Type 2 diabetes mellitus without complication, without long-term current use of insulin E11.[address] [address] 11/17/2024 Marissa James Left foot pain M79.672 ; Plantar wart B07.0 and Type 2 diabetes mellitus without complication, without long-term current use of insulin E11.[address] [address] 08/18/2024 Marissa James Assessments Encounter Date Diagnosis [...] Insured Coverage Start Date Coverage End Date [employer] [address] [address] [place] [address] [phone] [id number] Chalino Hendrix Spouse - patient is the spouse of the insured Medical (General) History Medical History History ICD Code Back,Hip,and Knee pain Broken bones CAD (Cholesterol) covid-19 Diabetes mellitus High Blood Pressure Reflux ( GERD) thyroid Chicken pox Surgical History Surgery Date(Month/Year) 06/27/92,09/09/98 Plantar Wart 08/2020 Lipo & Abdominoplasty 04/30/24
== END 2025-05-17 14:23 | disposition home or self-care (01) ==
LOC: HO.HOS 14:00
PROVIDERS: PCP Internal Medicine
DX: G56.03 Carpal tunnel syndrome, bilateral upper limbs (principal)
CPT/HCPCS: 99024

== ENCOUNTER 2025-05-18 07:05 | Outpatient (REF) | payer OTHER, SELFPAY ==
--- OUTSIDE RECORDS SUMMARY | 2025-05-18 07:08 | XMS_ITS | Patient Health Record ---
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 Name Role Phone Olinda MOBLEY, Jonelle Chacon Primary Care Provider Un available Marissa James Unavailable [phone] Allergies Allergen (clinical drug ingredient) Drug/Non Drug [...] W/U Status Risk Notes Problem Plantar wart (63802022) Plantar wart (B07.0) Active confirmed Problem Type II diabetes mellitus without complication (010679858) Type 2 diabetes mellitus without complication, without long-term current use of insulin (E11.9) Active confirmed Vital Signs Heart Rate 67 /min 08/31/2024 Blood pressure diastolic 75 mm Hg 11/17/2024 Height 5ft2in in 11/17/2024 Blood pressure systolic 117 mm Hg 11/17/2024 Weight 150 lbs 11/17/2024 BMI 27.43 kg/m2 11/17/2024 Encounters Encounter [facility] Date [facility] [address] [facility]/31/2024 Marissa James Left foot pain M79.672 ; Plantar wart B07.0 and Type 2 diabetes mellitus without complication, without long-term current use of insulin E11.[address] [address] 11/17/2024 Marissa James Left foot pain M79.672 ; Plantar wart B07.0 and Type 2 diabetes mellitus without complication, without long-term current use of insulin E11.[address] [address] 08/18/2024 Marissa James Assessments Encounter Date Diagnosis [...] Insured Coverage Start Date Coverage End Date [place] [address] [address] [place] [address] [id number] Chalino Hendrix Spouse - patient is the spouse of the insured Medical (General) History Medical History History ICD Code Back,Hip,and Knee pain Broken bones CAD (Cholesterol) covid-19 Diabetes mellitus High Blood Pressure Reflux ( GERD) thyroid Chicken pox Surgical History Surgery Date(Month/Year) 06/27/92,09/09/98 Plantar Wart 08/2020 Lipo & Abdominoplasty 04/30/24
[2025-05-18 08:42] LABS: Alanine Aminotransferase 31 U/L (0-31); Anion Gap 14 (12-20); Aspartate Amino Transferase 22 U/L (5-31); Blood Urea Nitrogen 24 mg/dL (9-16); Calcium 10.2 mg/dL (8.4-10.2); Carbon Dioxide 24 mmol/L (22-29); Chloride 105 mmol/L (96-108); Cholesterol 172 mg/dL (<200); Estimated Glomerular Filt Rate > 60; HDL Cholesterol 44 mg/dL (>40); Potassium 3.5 mmol/L (3.3-5.1); Sodium 139 mmol/L (135-145); Triglycerides 269 mg/dL (<150)
[2025-05-18 09:00] LABS: Free T4 (Free Thyroxine) 0.93 ng/dL (0.71-1.85); Thyroid Stimulating Hormone 4.01 uIU/mL (0.32-4.0)
[2025-05-18 09:07] LABS: Folate 13.4 ng/mL (> or = 4.0); Vitamin B12 600 pg/mL (200-900)
[2025-05-22 16:38] LABS: Vitamin D 25-OH, D2 <4 ng/mL; Vitamin D 25-OH, D3 36 ng/mL; Vitamin D 25-OH, Total 36 ng/mL (30-100)
== END 2025-05-18 07:06 | disposition home or self-care (01) ==
LOC: HO.LAB 07:05
PROVIDERS: Nurse Practitioner Family; PCP Internal Medicine; Visit Provider Internal Medicine
DX: Z23 Encounter for immunization (principal); Z00.01 Encounter for general adult medical examination with abnormal findings; E11.65 Type 2 diabetes mellitus with hyperglycemia; E89.0 Postprocedural hypothyroidism; E78.5 Hyperlipidemia, unspecified; I10 Essential (primary) hypertension; N95.1 Menopausal and female climacteric states; K29.70 Gastritis, unspecified, without bleeding; R19.7 Diarrhea, unspecified; R10.9 Unspecified abdominal pain; E55.9 Vitamin D deficiency, unspecified
CPT/HCPCS: 36415; 80048; 80061; 82306; 82607; 82746; 83036; 84439; 84443; 84450; 84460; 86364; 90471; 90656; 96127

== ENCOUNTER 2025-05-18 09:52 | Outpatient (AMB) | payer OTHER, SELFPAY ==
--- NOTE | 2025-05-18 09:54 | A.OFFPC_ITS ---
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 Required: No Allergies oxycodone (From PERCOCET) Adverse Reaction (Unknown, Verified 05/18/25 10:36) NAUSEA & VOMITING Medication List - Last Reconciled 05/18/25 by Jonelle Prakash MD atorvastatin 20 mg PO DAILY blood-glucose sensor ([employer] G7 Sensor device) Test blood sugar 4 times per day, change sensor every 10 days chlorthalidone 25 mg PO QAM clonazepam 0.5 mg PO BEDTIME docusate sodium (Colace) 200 mg (2 x 100 mg) PO BEDTIME 90 days fenofibrate micronized 134 mg PO DAILY levothyroxine 112 mcg PO QAM lisinopril 2.5 mg PO DAILY Mounjaro (tirzepatide) 2.5 mg (0.5 mL) subcut QWEEK 30 days NS omeprazole 40 mg PO DAILY PRN polyethylene glycol 3350 (Miralax) 17 grams PO DAILY 90 days venlafaxine ER 37.5 mg PO DAILY Tobacco use date assessed: 05/18/25 Dental Screening Dental Screen Date: 05/18/25 Did you have a dental visit in the last 12 months?: Yes Did you have a dental problem in the last 6 months where you did not have access to dental care?: No Was dental information given to patient?: Patient has dentist [facility] Medical History (Updated 05/18/25 @ 10:52 by Jonelle Prakash MD) Diabetes mellitus, without long-term current use of insulin Herpes zoster Heartburn Numbness and tingling in both hands Right medial knee pain Early menopause occurring in patient age younger than 45 years Menopausal vaginal dryness Low libido Hot flashes Vitamin D deficiency Gastritis Superficial burn of right thigh De Quervain's tenosynovitis, left Lateral epicondylitis, right elbow Hot flashes due to menopause Gastroparesis Gastroparesis Plantar wart, left foot Epicondylitis Carpal tunnel syndrome DJD (degenerative joint disease) Essential hypertension Hyperlipidemia LDL goal <100 Postablative hypothyroidism Surgical History (Updated 05/18/25 @ 10:52 by Jonelle Prakash MD) History of carpal tunnel release H/O abdominoplasty Hx of endoscopy Hx of colonoscopy Hx of mammogram Hx of foot surgery Hx of tubal ligation Hx of section Family History Father Diabetes CVD (cardiovascular disease) Stomach ulcer Mother Diabetes Colon polyps Dementia Family/Other Stomach cancer Social History Household Members: Spouse and Children Housing: House Alcohol intake: current Alcohol intake frequency: holidays/special occasions only Patient Tobacco Use Status: Former Tobacco user Tobacco use type: Cigarette e-Cigarette/Vaping Use: Former Use Current occupational status: employed 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 1. Little interest or pleasure in doing things: not at all 2. Feeling down, depressed, or hopeless: not at all 3. Trouble falling or staying asleep, or sleeping too much: not at all 4. Feeling tired or having little energy: not at all 5. Poor appetite or overeating: not at all 6. Feeling bad about yourself - or that you are a failure or have let yourself or your family down: not at all 7. Trouble concentrating on things, such as reading the newspaper or watching television: not at all 8. Moving or speaking so slowly that other people could have noticed. Or the opposite - being so fidgety or restless that you have been moving around a lot more than usual: not at all 9. Thoughts that you would be better off or of hurting yourself in some way: not at all Total score: 0 Source: Developed by Drs. Vladimir Carlson, Kady Pardo, Deven Victoria and colleagues, with an educational skye from [employer]. Thrive Questionnaire Date Thrive assessed: 05/18/25 I am a: Patient What is your living situation today?: I have a steady place to live Within the past 12 months, did the food you bought not last and you didn't have the money to get more?: Never true Within the past 12 months, did you worry whether your food would run out before you got money to buy more?: Never true Do you have trouble paying for medicines?: No Do you have trouble getting transportation to medical appointments?: No Do you have trouble paying your heating and electricity bill?: No Do you have trouble taking care of your child, family member or friend?: No Do you have trouble with day-to-day activities such as bathing, preparing meals, shopping, managing finances, etc.?: No Are you currently unemployed and looking for a job?: No Are you interested in more education?: No Please select the resources that you would like help with: None Currently or been in a relationship where the following occur: No concerns reported THRIVE Score: 0 AUDIT C Alcohol Use Questionnaire (AUDIT-C) 1. How often do you have a drink containing alcohol?: Monthly or less Total Score: 1 FIDELINA-7 AMB Questionnaire FIDELINA-7 Date FIDELINA - 7 assessed: 02/11/25 Feeling nervous, anxious, or on edge: 0 = Not at all Not being able to stop or control worryin = Not at all Worrying too much about different things: 0 = Not at all Trouble relaxin = Not at all Being so restless that it is hard to sit still: 0 = Not at all Becoming easily annoyed or irritable: 0 = Not at all Feeling afraid as if something awful might happen: 0 = Not at all Total FIDELINA-7 score (0-4 normal; 5-9 mild; 10-14 moderate; 15-21 severe): 0 Source: Developed by Drs. Vladimir Carlson, Kady Pardo, Deven Victoria and colleagues, with an educational skye from [employer]. Review of Systems Const All systems reviewed & are unremarkable except as noted in HPI and below Reports as per HPI Eyes Details: Currently sees Dr. Chowdary Reports no additional complaints ENT Reports no additional complaints Card Reports no additional complaints Resp Reports no additional complaints GI Reports no additional complaints Reports as per HPI and Denies nipple discharge Musc Reports no additional complaints Skin/Breast Denies breast pain, Denies breast mass, Denies nipple discharge and Denies rash Neuro Reports no additional complaints Psych Reports no additional complaints Endo Reports no additional complaints Shimon/Lymph Reports no additional complaints Aller/Immun Reports no additional complaints Physical exam (Primary Care) Vital Signs: Last Vital Signs Temp 98.0 F 05/18/25 09:55 Pulse 67 05/18/25 09:55 Resp 15 05/18/25 09:55 BP 96/60 05/18/25 09:55 Pulse Ox 95 05/18/25 09:55 Oxygen Delivery Method Room Air 05/18/25 09:55 BMI result Body Mass Index 28.3 Tobacco/Smoking Status: Tobacco use Status Tobacco use date assessed 05/18/25 05/18/25 10:15 Patient Tobacco Use Status Former Tobacco user 05/18/25 09:55 Tobacco use type Cigarette 05/18/25 09:55 e-Cigarette/Vaping Use Former Use 05/18/25 10:15 PHQ-9: PHQ-9 Score PHQ-9: Total score 0 05/18/25 10:15 Thrive Assessment: Date of Thrive Assessment Date Thrive assessed 02/18/24 05/18/25 09:55 Currently or been in a relationship where the following occur: No concerns reported Extrem Other: Steri-Strips over ventral aspect of right wrist status post carpal tunnel surgery done 05/17/2025 Office Procedures Flu Questionnaire Does the patient have a severe egg allergy?: No Does the patient have severe life threatening allergies?: No Does the patient have a fever or illness today?: No Has the patient ever had Guillain-Nolan Syndrome?: No Has the patient ever had any past reaction to a flu shot?: No Immunizations Fluarix 2628-2490 (PF) 45 mcg (15 mcg x 3)/0.5 mL IM syringe Performing Provider: Jonelle Prakash MD Performing Location: [facility] Administered by: Sara Myles CMA on 05/18/25 10:26 Dose Route Admin Location Dispensed Lot Number Expiration Date [facility] Family Services Worker 0.5 mL IM Right Deltoid 0.5 mL [id number] 01/31/26 [id number] [employer] VIS Given Date VIS Provided VIS Publication Date 05/18/25 Single Vaccine 24 Eligibility Eligibility Date Funding Source Not VFC Eligible 05/18/25 Private Results Reviewed Results Reviewed: Laboratory Tests 01/29/25 05/18/25 09:35 07:16 Estimat Average Glucose 151 Hemoglobin A1c % 6.9 H Microalb/Creat Ratio 19.2 Name: Elizabeth Hendrix Age/Sex: 54/F : 1970 Unit#: [id number] Attend Dr: Jonelle Praaksh MD Re05/18/25 Status: REG REF Location: .LAB Disch: SPEC : [id number] [place]: 05/18/25 STATUS: COMP REQ : [id number] RECD: 05/18/[address]: Jonelle Prakash MD COMP: 05/18/25 ENTERED: 05/18/25 [facility]: ORDERED: Met Prof Fast, AST, ALT, Lipid Panel, Free T4, TSH Test Result Flag Reference Sodium 139 135-145 mmol/L Potassium 3.5 3.3-5.1 mmol/L CL 105 96-108 mmol/L CO2 24 22-29 mmol/L Gap 14 12-20 BUN 24 H 9-16 mg/dL Creat 0.82 0.5-1.4 mg/dL eGFR > 60 Chronic Kidney Disease: Estimated GFR < 60 mL/min/1.73m2 Severe Kidney Disease: Estimated GFR < 15 mL/min/1.73m2 FBS 172 H 60-99 mg/dL A fasting glucose of 126 mg/dl or greater on more than one occasion is considered diagnostic of diabetes. CA 10.2 # 8.4-10.2 mg/dL AST (GOT) 22 5-31 U/L ALT (GPT) 31 0-31 U/L Triglyceride 269 H <150 mg/dL Desirable Triglyceride: less than 150 mg/dL Borderline High Triglyceride 150-199 mg/dL High Triglyceride: 200-499 mg/dL Very High Triglyceride: greater than or equal to 5OO mg/dL Cholesterol 172 <200 mg/dL Desirable Cholesterol: less than 200 mg/dL Borderline High Cholesterol: 200-239 mg/dL High Cholesterol: greater than 239 mg/dL LDL Calculated 75 <100 mg/dL Desirable LDL: less than 100 mg/dL Near Optimal/Above Optimal LDL: 110-129 mg/dL Borderline High LDL: 130-159 mg/dL High LDL: 160-189 mg/dL Very High LDL: greater than or equal to 190 mg/dL HDL 44 >40 mg/dL Desirable HDL: greater than 40 mg/dL Note: This HDL assay may give artificially low results in patients with liver disease. Free T4 0.93 0.71-1.85 ng/dL TSH 3rd Gen. 4.01 H 0.32-4.0 uIU/mL Note: A sustained TSH level above 2.5 uIU/mL may warrant further investigation. TSH 3rd Generation ([facility]) Coding Level of Care Code Est Pt Prev Care 40-64y(81295) Diagnoses Annual visit for general adult medical examination with abnormal findings Z00.01 Postablative hypothyroidism E89.0 Hyperlipidemia LDL goal <100 E78.5 Essential hypertension I10 Hot flashes due to menopause N95.1 Gastritis, presence of bleeding unspecified, unspecified chronicity, unspecified gastritis type K29.70 Chronicity: unspecified Gastritis bleeding: presence of bleeding unspecified Gastritis type: unspecified gastritis Diabetes mellitus, without long-term current use of insulin E11.9 Assessment & Plan Assessment & Plan (1) Annual visit for general adult medical examination with abnormal findings: Code(s): Z00.01 - Encounter for general adult medical examination with abnormal findings (2) Postablative hypothyroidism: Code(s): E89.0 - Postprocedural hypothyroidism Category: Medical (3) Hyperlipidemia LDL goal <100: Code(s): E78.5 - Hyperlipidemia, unspecified Category: Medical (4) Essential hypertension: Code(s): I10 - Essential (primary) hypertension Category: Medical (5) Hot flashes due to menopause: Comment: Controlled with taking venlafaxine ER Code(s): N95.1 - Menopausal and female climacteric states Category: Medical (6) Gastritis: Code(s): K29.70 - Gastritis, unspecified, without bleeding Category: Medical Qualifiers: Chronicity: unspecified Gastritis bleeding: presence of bleeding unspecified Gastritis type: unspecified gastritis Qualified Code(s): K29.70 - Gastritis, unspecified, without bleeding (7) Diabetes mellitus, without long-term current use of insulin: Code(s): E11.9 - Type 2 diabetes mellitus without complications Category: Medical Orders: Orders Lipid Panel 08/06/25 E11.9 - Type 2 diabetes mellitus without complications, E78.5 - Hyperlipidemia, unspecified, E89.0 - Postprocedural hypothyroidism, I10 - Essential (primary) hypertension, K29.70 - Gastritis, unspecified, without bleeding, N95.1 - Menopausal and female climacteric states, Z00.01 - Encounter for general adult medical examination with abnormal findings, Z98.890 - Other specified postprocedural states Alanine Aminotransferase 08/06/25 E11.9 - Type 2 diabetes mellitus without complications, E78.5 - Hyperlipidemia, unspecified, E89.0 - Postprocedural hypothyroidism, I10 - Essential (primary) hypertension, K29.70 - Gastritis, unspecified, without bleeding, N95.1 - Menopausal and female climacteric states, Z00.01 - Encounter for general adult medical examination with abnormal findings, Z98.890 - Other specified postprocedural states Aspartate Amino Transferase 08/06/25 E11.9 - Type 2 diabetes mellitus without complications, E78.5 - Hyperlipidemia, unspecified, E89.0 - Postprocedural hypothyroidism, I10 - Essential (primary) hypertension, K29.70 - Gastritis, unspecified, without bleeding, N95.1 - Menopausal and female climacteric states, Z00.01 - Encounter for general adult medical examination with abnormal findings, Z98.890 - Other specified postprocedural states Triiodothyronine T3 Free 08/06/25 E11.9 - Type 2 diabetes mellitus without complications, E78.5 - Hyperlipidemia, unspecified, E89.0 - Postprocedural hypothyroidism, I10 - Essential (primary) hypertension, K29.70 - Gastritis, unspecified, without bleeding, N95.1 - Menopausal and female climacteric states, Z00.01 - Encounter for general adult medical examination with abnormal findings, Z98.890 - Other specified postprocedural states Free T4 (Free Thyroxine) 08/06/25 E11.9 - Type 2 diabetes mellitus without complications, E78.5 - Hyperlipidemia, unspecified, E89.0 - Postprocedural hypothyroidism, I10 - Essential (primary) hypertension, K29.70 - Gastritis, unspecified, without bleeding, N95.1 - Menopausal and female climacteric states, Z00.01 - Encounter for general adult medical examination with abnormal findings, Z98.890 - Other specified postprocedural states Influenza [id number] Immunization Today Z23 - Encounter for immunization Basic Metabolic Panel Fasting 08/06/25 E11.9 - Type 2 diabetes mellitus without complications, E78.5 - Hyperlipidemia, unspecified, E89.0 - Postprocedural hypothyroidism, I10 - Essential (primary) hypertension, K29.70 - Gastritis, unspecified, without bleeding, N95.1 - Menopausal and female climacteric states, Z00.01 - Encounter for general adult medical examination with abnormal findings, Z98.890 - Other specified postprocedural states Thyroid Stimulating Hormone 08/06/25 E11.9 - Type 2 diabetes mellitus without complications, E78.5 - Hyperlipidemia, unspecified, E89.0 - Postprocedural hypothyroidism, I10 - Essential (primary) hypertension, K29.70 - Gastritis, unspecified, without bleeding, N95.1 - Menopausal and female climacteric states, Z00.01 - Encounter for general adult medical examination with abnormal findings, Z98.890 - Other specified postprocedural states Medications: Changed From Mounjaro (tirzepatide) for 4 weeks 2.5 mg (0.5 mL) subcut QWEEK 30 days 2 mL 5RF NS E11.9 - Type 2 diabetes mellitus without complications, E78.5 - Hyperlipidemia, unspecified, E89.0 - Postprocedural hypothyroidism To Mounjaro for 4 weeks 5 mg (0.5 mL) subcut QWEEK 30 days 2 mL 5RF NS E11.9 - Type 2 diabetes mellitus without complications, E78.5 - Hyperlipidemia, unspecified, E89.0 - Postprocedural hypothyroidism Refilled blood-glucose sensor Test blood sugar 4 times per day, change sensor every 10 days 9 ea 1RF E11.9 - Type 2 diabetes mellitus without complications
[2025-05-18 09:55] VITALS: BP 96/60; PULSE 67; RESP 15; TEMP 36.7; O2SAT 95; BMI 28.3
== END 2025-05-18 10:55 | disposition home or self-care (01) ==
LOC: HO.HMCC 09:53
PROVIDERS: PCP Internal Medicine; Visit Provider Internal Medicine
DX: Z23 Encounter for immunization (principal)

== ENCOUNTER → 2025-05-20 08:15 | Outpatient (BNV) | payer OTHER, SELFPAY | PROVIDERS: PCP Internal Medicine; Visit Provider Internal Medicine | DX: Z12.31 Encounter for screening mammogram for malignant neoplasm of breast (principal) | CPT/HCPCS: 77063; 77067 ==

== ENCOUNTER 2025-05-20 08:51 | Outpatient (REF) | payer OTHER, SELFPAY ==
--- NOTE | ~2025-05-20 | MM_ITS ---
EXAMINATION: MM SCREENING DIGITAL BREAST TOMOSYNTHESIS, BILATERAL CLINICAL INFORMATION: Screening. Asymptomatic. COMPARISON: Mammography: Comparison is made with available priors TECHNIQUE: Digital breast mammography with tomosynthesis is performed in both the craniocaudal and mediolateral oblique views along with computer-aided detection (CAD). FINDINGS: There are scattered areas of fibroglandular density. There are no significant masses, abnormal calcifications, or other abnormalities. MM/MM tomosynthesis screening BI IMPRESSION: No mammographic evidence of malignancy. ASSESSMENT: BI-RADS Category 1: Negative RECOMMENDATION: Routine annual mammography screening. 1 year F/U This examination should not preclude the clinical evaluation of a suspicious palpable abnormality. This patient's information was entered into a reminder system with a target due date for their next mammogram. Electronically signed by: Julieta Vizcarra DO 05/20/2025 09:23 AM FITZ
--- OUTSIDE RECORDS SUMMARY | 2025-05-20 09:27 | XMS_ITS | Patient Health Record ---
[facility] Address [address] [place] [address] Care Team Providers Care Marketing Rep Name Role Phone Olinda MOBLEY, Jonelle Chacon Primary Care Provider Un available Marissa James Unavailable [phone] Allergies Allergen (clinical drug ingredient) Drug/Non Drug [...] W/U Status Risk Notes Problem Plantar wart ([id number]) Plantar wart (B07.0) Active confirmed Problem Type II diabetes mellitus without complication (184932716) Type 2 diabetes mellitus without complication, without long-term current use of insulin (E11.9) Active confirmed Vital Signs Heart Rate 67 /min 08/31/2024 Blood pressure diastolic 75 mm Hg 11/17/2024 Height 5ft2in in 11/17/2024 Blood pressure systolic 117 mm Hg 11/17/2024 Weight 150 lbs 11/17/2024 BMI 27.43 kg/m2 11/17/2024 Encounters Encounter Location Date Provider [facility] [address] 08/31/2024 Marissa James Left foot pain M79.672 ; Plantar wart B07.0 and Type 2 diabetes mellitus without complication, without long-term current use of insulin E11.[address] [address] 11/17/2024 Marissa James Left foot pain M79.672 ; Plantar wart B07.0 and Type 2 diabetes mellitus without complication, without long-term current use of insulin E11.[address] [address] 08/18/2024 Marissa James Assessments Encounter Date Diagnosis [...] Insured Coverage Start Date Coverage End Date [employer] [address] [address] [place] [address] [id number] Chalino Hendrix Spouse - patient is the spouse of the insured Medical (General) History Medical History History ICD Code Back,Hip,and Knee pain Broken bones CAD (Cholesterol) covid-19 Diabetes mellitus High Blood Pressure Reflux ( GERD) thyroid Chicken pox Surgical History Surgery Date(Month/Year) 06/27/92,09/09/98 Plantar Wart 08/2020 Lipo & Abdominoplasty 04/30/24
== END 2025-05-20 08:52 | disposition home or self-care (01) ==
LOC: HO.MAMMO 08:51
PROVIDERS: PCP Internal Medicine; Visit Provider Internal Medicine
DX: Z12.31 Encounter for screening mammogram for malignant neoplasm of breast (principal)
CPT/HCPCS: 77063; 77067

== ENCOUNTER 2025-06-22 08:57 | Outpatient (AMB) | payer OTHER, SELFPAY ==
--- NOTE | 2025-06-22 09:17 | A.OFFVIS_ITS ---
VS Expanded 06/22/25 09:23 Height 5 ft 2 in Weight 153 lb 6 oz BMI 28.0 Intake Visit Reasons: T2DM Allergies oxycodone (From PERCOCET) Adverse Reaction (Unknown, Verified 05/18/25 10:36) NAUSEA & VOMITING Nutrition Presentation Details: Pt presents for MNT f/u T2DM Pt reports doing okay and acknowledges consuming higher fat meals For blood glucose record, in the past 14 days blood sugars have been 80% within target, no hypoglycemia noted BS Monitoring Most Recent Diabetes Results: Cholesterol, (<200) 172 mg/dL 05/18/25 HDL Cholesterol, (>40) 44 mg/dL 05/18/25 Triglycerides, (<150) 269 mg/dL H 05/18/25 Creatinine, (0.5-1.4) 0.82 mg/dL 05/18/25 BUN, (9-16) 24 mg/dL H 05/18/25 Sodium, (135-145) 139 mmol/L 05/18/25 Potassium, (3.3-5.1) 3.5 mmol/L 05/18/25 Chloride, (96-108) 105 mmol/L 05/18/25 Carbon Dioxide, (22-29) 24 mmol/L 05/18/25 Calcium, (8.4-10.2) 10.2 mg/dL Δ 05/18/25 AST, (5-31) 22 U/L 05/18/25 ALT, (0-31) 31 U/L 05/18/25 [facility] Medical History (Updated 05/22/25 @ 21:50 by Jonelle Prakash MD) Diabetes mellitus with hyperglycemia, without long-term current use of insulin Diabetes mellitus, without long-term current use of insulin Herpes zoster Heartburn Numbness and tingling in both hands Right medial knee pain Early menopause occurring in patient age younger than 45 years Menopausal vaginal dryness Low libido Hot flashes Vitamin D deficiency Gastritis Superficial burn of right thigh De Quervain's tenosynovitis, left Lateral epicondylitis, right elbow Hot flashes due to menopause Gastroparesis Gastroparesis Plantar wart, left foot Epicondylitis Carpal tunnel syndrome DJD (degenerative joint disease) Essential hypertension Hyperlipidemia LDL goal <100 Postablative hypothyroidism Surgical History (Updated 05/18/25 @ 10:52 by Jonelle Prakash MD) History of carpal tunnel release H/O abdominoplasty Hx of endoscopy Hx of colonoscopy Hx of mammogram Hx of foot surgery Hx of tubal ligation Hx of section Family History Father Diabetes CVD (cardiovascular disease) Stomach ulcer Mother Diabetes Colon polyps Dementia Family/Other Stomach cancer Social History Household Members: Spouse and Children Housing: House Alcohol intake: current Alcohol intake frequency: holidays/special occasions only Patient Tobacco Use Status: Former Tobacco user Tobacco use type: Cigarette e-Cigarette/Vaping Use: Former Use Current occupational status: employed 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 Gender identity: Female Cognitive needs: No Hearing needs: No Vision needs: Yes Assessment & Plan Assessment & Plan (1) Diabetes mellitus, without long-term current use of insulin: Code(s): E11.9 - Type 2 diabetes mellitus without complications Category: Medical Plan: current wt: 71 kg ( 04/28 ), 69 (06-28) est kcal needs as per MSJ: 3460-7533 est protein needs as per 1 g/kg BW: 70 est fluid needs as per 30 ml/kg BW: 2100 Recommended fiber > 12 g /day and gradually increase up to 25-28 g /day or as tolerated Rec sodium intake <2300mg/d unless otherwise specified by MD Nutrition topics discussed : Reviewed (R), Pt verbalized understanding (V) , not applicable (N/A) R, V, : Healthy Plate Method Concept: R, : Carbohydrates: food sources of carbohydrates, relationship of carbohydrates to blood glucose, fatty liver GI health. Recommended total amount of carbohydrates per meals and snack. Differences between simple carbohydrates and complex carbohydrates R, : Lean protein foods including vegan , vegetarian sources of protein. Benefits of protein (including but not limited to healing, nutritional value , benefits in weight loss, glucose control R, : Fats : Source of fats, benefits of fats. Difference between saturated and unsaturated fats. Saturated fats and its contribution to inflammation R, V, N/A: Fiber: food sources and role of fiber in the diet (including but not limited to its role as a prebiotic, benefits in constipation, role in IBS , role in glucose control and cholesterol level) R, : Hydration: role of hydration and prevention of dehydration or over hydration. Foods and water content. R, V, N/A: Vitamins and Minerals in foods and supplements R, V, N/A: Interpreting food labels, including serving size, macronutrients, vitamins, minerals, allergens, ingredient list , % daily value Patient Instructions: Choose lower fat protein source of foods (poultry, fish, eggs and less frequent: higher fat meats/organ meats), opt for lower fat cooking methods and removing skin Include fiber in the diet : fruit at lunch, non starchy veg, fiber fiber supplement Increase water as you increase on fiber intake Coding Level of Care Code Nutr Indiv Subseq (98089) Diagnoses Diabetes mellitus, without long-term current use of insulin E11.9 Time Spent (min) 30
[2025-06-22 09:23] VITALS: BMI 28.0
--- OUTSIDE RECORDS SUMMARY | 2025-06-22 16:46 | XMS_ITS | Patient Health Record ---
Author Organization [facility] Address [address] [facility] [place] [address] Care Team Providers Care Investments Manager Name Role Phone Olinda MOBLEY, Jonelle Chacon Primary Care Provider Un available Marissa James Unavailable [phone] Allergies Allergen (clinical drug ingredient) Drug/Non Drug [...] W/U Status Risk Notes Problem Plantar wart (74976277) Plantar wart (B07.0) Active confirmed Problem Type II diabetes mellitus without complication (015764330) Type 2 diabetes mellitus without complication, without long-term current use of insulin (E11.9) Active confirmed Vital Signs Heart Rate 67 /min 08/31/2024 Blood pressure diastolic 75 mm Hg 11/17/2024 Height 5ft2in in 11/17/2024 Blood pressure systolic 117 mm Hg 11/17/2024 Weight 150 lbs 11/17/2024 BMI 27.43 kg/m2 11/17/2024 Encounters Encounter Location Date Provider Diagnosis [facility] [address] 08/31/2024 Marissa James Left foot pain M79.672 ; Plantar wart B07.0 and Type 2 diabetes mellitus without complication, without long-term current use of insulin E11.[address] [address] 11/17/2024 Marissa James Left foot pain M79.672 ; Plantar wart B07.0 and Type 2 diabetes mellitus without complication, without long-term current use of insulin E11.[address] [address] 08/18/2024 Marissa James Assessments Encounter Date Diagnosis [...] Insured Coverage Start Date Coverage End Date [employer] [address] [address] [place] [address] [id number] [id number] Chalino Hendrix Spouse - patient is the spouse of the insured Medical (General) History Medical History History ICD Code Back,Hip,and Knee pain Broken bones CAD (Cholesterol) covid-19 Diabetes mellitus High Blood Pressure Reflux ( GERD) thyroid Chicken pox Surgical History Surgery Date(Month/Year) 06/27/92,09/09/98 Plantar Wart 08/2020 Lipo & Abdominoplasty 04/30/24
--- OUTSIDE RECORDS SUMMARY | 2025-06-22 16:46 | XMS_ITS ---
Author Organization Unknown ENCOUNTERS Encounter Performer Location Date Diagnosis [place] [address] [id number] [place] [address] [phone] [place] [address] [id number] [facility] *Note: Encounters from your own facility or health system may be excluded. Allergies, Adverse Reactions, Alerts Allergen Type Severity Identification Date oxycodone drug allergy [id number] Medications Name Date Quantity Days Supplied GPI Number
== END 2025-06-22 14:40 | disposition home or self-care (01) ==
LOC: HO.ENCR 09:00
PROVIDERS: PCP Internal Medicine; Visit Provider Dietitian, Registered
DX: E11.9 Type 2 diabetes mellitus without complications (principal)

== ENCOUNTER → 2025-06-22 08:57 | Outpatient (BNVA) | payer OTHER, SELFPAY | PROVIDERS: PCP Internal Medicine; Visit Provider Dietitian, Registered | DX: E11.9 Type 2 diabetes mellitus without complications (principal) | CPT/HCPCS: 97803 ==